=== PATIENT | female | born 1940 | race Caucasian/White ===

== ENCOUNTER 2019-01-16 12:59 | Inpatient (IN) | payer MEDICARE, BC ==
[~2019-01-16] VITALS: Ht 154.9 cm; Wt 53.6 kg
[2019-01-16 13:50] VITALS: BP 127/70
[2019-01-16] MEDS ORDERED: ASPI-983 PO (14:41)
[2019-01-16] MEDS ORDERED: NITR0.4T39 SL (14:41)
[2019-01-16] MEDS ORDERED: ACET-2267 PO (14:41)
[2019-01-16] MEDS ORDERED: LEVO75TA PO (14:41)
[2019-01-16] MEDS ORDERED: ATOR40TA70 PO (14:41)
--- NOTE | 2019-01-16 14:43 | NUR ---
UPDATED MED REC TO THE LIST OF THE MEDICATIONS THAT WAS ORDERED UPON DISCHARGE FROM [facility]. NOTE THE FOLLOWING CHANGES WERE MADE AT THAT TIME. START TAKING: TYLENOL 500MG Q12H X 10 DAYS I WILL UPDATE THE MED REC TO THE LIST OF MEDICATIONS THE PATIENT WAS TAKING PRIOR TO THAT DISCHARGE AT A LATER TIME FOR PROPER DISCHARGE TO HOME ORDERS. Addendum: 01/18/19 at 0827 by LOUIE HERRING [facility] REMOVED THE TYLENOL THAT WAS STARTED AT DISCHARGE FROM [facility] AND LEFT THE 4 MEDICATIONS THAT WERE CONTINUED SO THE MED REC NOW REFLECTS THE MEDS THE PATIENT WAS TAKING AT HOME PRIOR TO HER DISCHARGE TO REHAB.
--- NOTE | 2019-01-16 15:09 | Occupational Therapy Eval ---
OT Evaluation-General/PLF Medical Diagnosis Admission Date Jan 16, 2019 at 13:50 Medical Diagnosis: high anion gap metabolic acisosis Onset Date: Jan 16, 2019 Therapy Diagnosis Therapy Diagnosis: impaired ADLs and mobility Precautions Precautions/Isolations: Fall Prevention, Standard Precautions Weight Bear Status Weight Bearing Restriction: Weight Bearing/Tolerated Location Restriction: TRUONG FEET, LE Bilateral, UE Bilateral Referral Referral Reason: Activity Tolerance, Self Care, Evaluation/Treatment, Strengthening/ROM Medical History Pertinent Medical History: CAD, HTN Additional Medical History CAD, GERD, HLD, HTN, diastolic dysfunction , hypothyroidism Reviewed History: Yes Social History Home: Single Level Current Living Status: Alone Entry Into Home: Stairs With Railing Steps Into Home: 3 Steps Inside Home: 2 Other Obstacles: step down into family room ADL-Prior Level of Function Therapy Code Descriptions/Definitions Functional [place] Measure: 0=Not Assessed/NA 4=Minimal Assistance 1=Total Assistance 5=Supervision or Setup 2=Maximal Assistance 6=Modified [place] 3=Moderate Assistance 7=Complete [place] Therapy Quality Codes: 6 Independent with activity with or without an assistive device 5 Patient requires set up or clean up by helper. Patient completes activity by themselves 4 Supervision or touching assist (CGA). [place] provide cues , steadying assist 3 The helper provides less than half the effort to complete the activity 2 The helper provides more than half the effort to complete the activity 1 Dependent. The helper does all the effort to complete an activity 7 Patient refused to complete or attempt activity 9 The patient did not perform the activity before the current illness or injury 88 Not attempted due to Medical conditions or safety concerns Functional Abilities and Goals: Independent: Patient completed the activities by him/herself, with or without an assistive device, with no assistance from a helper. Needed Some Help: Patient needed partial assistance from another person to complete activities. Dependent: A helper completed the activities for the patient. Unknown: Not Applicable: ADL PLOF Comments pt stated she was independent PLOF and just stated using a FRW. pt stated she has had frequent falls at home and would stay on floor for 2 plus hours until gained strength then would get up. pt uses frozen meals. 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 pt agreed to OT evaluation session and OT/ PT tx session. Co- Treat with PT secondary to complexity of pt requiring skilled services by both disciplines that could not be filled by restorative rehab aide. pt complains of 8/10 pain in R shoulder over AC joint Appearance Noted slight edema in R hand Mental Status/Objective Patient Orientation: Person, Place, Situation Current Glasses/Contacts: No Hearing Aids: Yes Dentures/Partials: No Hand Dominance: Right Upper Extremity ROM truong UE WFL. R shoulder requires increase timing to complete WFL secondary to pain in R AC joint. Truong elbow/ wrist WFL Upper Extremity Coordination truong UE WFL Upper Extremity Sensation WFL Upper Extremity Strength Truong UE 3+/5. ADL-Treatment Eating (FIM): 5 (increase tiing using R UE. noted incrase pain with movement ) Eating (QC): 4 Grooming (FIM): 4 (CGA while stanidng at sink for safety/ balance. noted fair- balance) Oral Hygiene (QC): 4 Bathing (FIM): 0 (pt REFused to complete this task this date secodnary to not having clothing. pt stated she will shower next day. ) Upper Body Dressing (FIM): 2 (pt demo abiltiy to button up shirt. pt requried assist with all other steps secodanry to pain. pt education on dressing affected arm first pt demo coirecctly post education with MIN A ) Upper Body Dressing (QC): 1 Lower Body Dressing (FIM): 1 (required assist with each step. pt ecuation on one handed dressing tech. pt still required assist futher education will be provided. ) Lower Body Dressing (QC): 1 On/Off Footwear (QC): 1 Toileting (FIM): 1 (pt required assist to pull up/ down pants. pt able to perform hygiene ) Toileting Hygiene (QC): 1 Transfers (B, C, W/C) (FIM): 4 (LOB x 2 reured therapist to correct. ) Toilet/Commode Transfer (FIM): 4 Toilet Transfer (QC): 3 pt required MIN A from therapist to perform functional transfers secondary to d ecrease balance. pt demo several (6) LOB during functional mobility required TA from therapist to correct. Other Treatments pt demo ability to ambulate to [place] gym required tactile/ VC from OT while PT focused on mobility. pt required AGUILA .once in gym pt perform bed mobility with skilled cuing from OT for proper hand placement while OT addressed LE movement/ sequencing. pt then ambulated to parallel bars. pt education on proper methods when performing sit to stands and hand placement. OT focused on UE placement and sequencing while PT focus on gross movement and LE placement. pt perform 4 sit to stands. pt then standing in parallel bars OT worked on UE AROM, R shoulder APROM, UE management during ball toss while PT focused on balance// standing. pt transition to JC care. Education OT Patient Education: Energy conservation, Modified ADL techniques, Progress toward Goal/Update tx plan, Purpose of tx/functional activities, Reviewed precautions, Rehab process, Safety issues, Transfer techniques Teaching Recipient: Patient, Family Teaching Methods: Demonstration, Discussion Response to Teaching: Verbalize Understanding, Return Demonstration OT Short Term Goals Short Term Goals Eating(FIM): 6 Grooming(FIM): 5 Bathing(FIM): 5 Bathing Location: L Arm, R Arm, L Upper Leg, R Upper Leg, L Lower Leg (including foot), R Lower Leg (including foot), Chest, Abdomen, Buttocks, Perineal Area Upper Body Dressing(FIM): 5 Lower Body Dressing(FIM): 5 Toileting(FIM): 5 Transfers (B,C,W/C) (FIM): 5 Toilet/Commode Transfer(FIM): 5 Shower Transfer(FIM): 5 1=Demonstrate adherence to instructed precautions during ADL tasks. 2=Patient will verbalize/demonstrate understanding of assistive devices/modifications for ADL. 3=Patient will improve strength/tolerance for activity to enable patient to perform ADL's. OT Penitentiary Goals Penitentiary Goals Eating (FIM): 7 Eating (QC): 6 Groomin Oral Hygiene (QC): 6 Bathing(FIM): 6 Bathing Location: L Arm, R Arm, L Upper Leg, R Upper Leg, L Lower Leg (including foot), R Lower Leg (including foot), Chest, Abdomen, Buttocks, Perineal Area Shower/Bathe Self (QC): 6 Upper Body Dressing(FIM): 6 Upper Body Dressing (QC): 6 Lower Body Dressing(FIM): 6 Lower Body Dressing (QC): 6 On/Off Footwear (QC): 6 Toileting(FIM): 6 Toileting Hygiene (QC): 6 Transfers (B,C,W/C) (FIM): 6 Toilet/Commode Transfer(FIM): 6 Toilet/Commode Transfer (QC): 6 Shower Transfer(FIM): 6 Additional Goals: 1-Demonstrate ADL Tasks, 2-Verbalize Understanding, 3- ImproveStrength/[place] 1=Demonstrate adherence to instructed precautions during ADL tasks. 2=Patient will verbalize/demonstrate understanding of assistive devices/michelle fications for ADL. 3=Patient will improve strength/tolerance for activity to enable patient to perform ADL's. OT Education/Plan Problem List/Assessment Assessment: Decreased Activ Tolerance, Decreased Safety Aware, Decreased UE Strength, Impaired Bed Mobility, Impaired Cognition, Impaired Coordination, Impaired Funct Balance, Impaired I ADL's, Impaired Self-Care Skills, Restricted Funct UE ROM pt present with functional limitations affecting areas of ADLS and functional transfers with deficits in the above mention. pt would benefit from skilled OT services to increase independence with ADL/ functional transfers. Discharge Recommendations Plan/Recommendations: Continue POC Treatment Plan/Plan of Care Treatment,Training & Education: Yes Patient would benefit from OT for education, treatment and training to promote independence in ADL's, mobility, safety and/or upper extremity function for ADL's. Plan of Care: ADL Retraining, Caregiver Training, Concurrent Therapy, Functional Mobility, Group Exercise/Act as Ind, UE Funct Exercise/Act Treatment Duration: Feb 20, 2019 Frequency: At least 5 of 7 days/Wk (IRF) Estimated Hrs Per Day: 1 hour per day (60-90 minutes per day) Agreement: Yes Rehab Potential: Fair Time/GCodes Start Time: 13:38 Stop Time: 14:55 Billed Treatment Time EVM 15 MINUTES [id number] evaluation [id number] ADL 1 units, 10 minutes 1415- 1455 (co-treatment with PT) FA 40 minutes, 3 units DOUGLAS EDWARDS OT Jan 16, 2019 15:09
--- NOTE | 2019-01-16 15:55 | Physical Therapy Daily Note ---
PT Daily Note-Current Subjective Pt sitting in W/C in Therapy Gym working with PT & OT for co-treat upon arrival. Pt agrees to PT/OT co-treat. Pain Numeric Pain Scale: 7 Pain Description: Ache, Tightness Comment: Pt did not report pain, based on facial grimaces. Mental Status Patient Orientation: Person, Place, Time, Situation Transfers Therapy Code Descriptions/Definitions Functional [place] Measure: 0=Not Assessed/NA 4=Minimal Assistance 1=Total Assistance 5=Supervision or Setup 2=Maximal Assistance 6=Modified [place] 3=Moderate Assistance 7=Complete [place] Therapy Quality Codes: 6 Independent with activity with or without an assistive device 5 Patient requires set up or clean up by helper. Patient completes activity by themselves 4 Supervision or touching assist (CGA). [place] provide cues , steadying assist 3 The helper provides less than half the effort to complete the activity 2 The helper provides more than half the effort to complete the activity 1 Dependent. The helper does all the effort to complete an activity 7 Patient refused to complete or attempt activity 9 The patient did not perform the activity before the current illness or injury 88 Not attempted due to Medical conditions or safety concerns Sit to/from Stand: 4 Sit to Stand (QC): 4 SCIENCE PROFESSOR assists with transfer for safety & balance. Weight Bearing Full Weight Bearing Full Weight Bearing Wheelchair Training Does the Pt Use a Wheelchair?: Yes Wheelchair (FIM): 4 Wheelchair Distance: [phone] ft Distance: 75' Wheelchair Level of Assist: 5 Wheel 50 ft with 2 turns (QC): 5 Type of Wheelchair: Manual Pt fatigues and SCIENCE PROFESSOR assists pt with propelling W/C back to room. Treatments PT & OT co-treat to work on balance w/in //bars. Pt also works on sit to stand transfers. Pt then stands at Min A for balance to work on shoulder ROM with assist from PRINT PRODUCTION MANAGER. Pt works on Seated Ex in W/C. Pt then propels W/C for short distance before SCIENCE PROFESSOR assisting rest of distance to room. Pt transfers from W/C to recliner using SPT. Pt positioned with pillows, ice pack on R shoulder & call light in hand. Skills of 2 therapists are required for skilled instruction for pain management with movement of R UE, ADLs, balance with dynamic activities, w/c mobility and ambulation. PT worked on LE strengthening, ambulation, balance and w/c management. OT worked on UE AROM, R shldr APROM, UE management during ambulation and transfers. Assessment Current Status: Good Progress Pt tolerates tx well despite pain. PT Short Term Goals Short Term Goals Transfers (B,C,W/C) (FIM): 5 PT Plan Problem List Problem List: Activity Tolerance, Functional Strength, Safety, Balance, Gait, Transfer Treatment/Plan Treatment Plan: Continue Plan of Care Treatment Plan: Bed Mobility, Concurrent Therapy, Education, Functional Activity [place], Functional Strength, Group Therapy, Gait, Safety, Therapeutic Exercise, Transfers Treatment Duration: Feb 06, 2019 Frequency: At least 5 of 7 days/Wk (IRF) Estimated Hrs Per Day: 1.5 hours per day Patient and/or Family Agrees t: Yes Safety Risks/Education Patient Education: Transfer Techniques, Correct Positioning, W/C Management, Safety Issues Teaching Recipient: Patient Teaching Methods: Discussion Response to Teaching: Verbalize Understanding Time/GCodes Time In: 1450 Time Out: 1540 Total Billed Treatment Time: 50 Total Billed Treatment 1, FA x3 (50m) G Codes Necessary: SILVIA Juan SCIENCE PROFESSOR Jan 16, 2019 15:55
--- NOTE | 2019-01-16 15:57 | Occupational Ther Daily Note ---
OT Current Status-Daily Note Subjective Pt alert, in therapy gym. Took over co-treat with PT from OTR/L. Pt c/o pain in R shlder with movement. Mental Status/Objective Patient Orientation: Person, Place, Time, Situation Therapy Code Descriptions/Definitions Functional [place] Measure: 0=Not Assessed/NA 4=Minimal Assistance 1=Total Assistance 5=Supervision or Setup 2=Maximal Assistance 6=Modified [place] 3=Moderate Assistance 7=Complete [place] ADL-Treatment Therapy Code Descriptions/Definitions Functional [place] Measure: 0=Not Assessed/NA 4=Minimal Assistance 1=Total Assistance 5=Supervision or Setup 2=Maximal Assistance 6=Modified [place] 3=Moderate Assistance 7=Complete [place] Therapy Quality Codes: 6 Independent with activity with or without an assistive device 5 Patient requires set up or clean up by helper. Patient completes activity by themselves 4 Supervision or touching assist (CGA). [place] provide cues , steadying assist 3 The helper provides less than half the effort to complete the activity 2 The helper provides more than half the effort to complete the activity 1 Dependent. The helper does all the effort to complete an activity 7 Patient refused to complete or attempt activity 9 The patient did not perform the activity before the current illness or injury 88 Not attempted due to Medical conditions or safety concerns Other Treatment Skills of 2 therapists are required for skilled instruction for pain management with movement of R UE, ADLs, balance with dynamic activities, w/c mobility and ambulation. PT worked on LE strengthening, ambulation, balance and w/c management. OT worked on UE AROM, R shldr APROM, UE management during ambulation and transfers. Completed resistive clothespins in standing by reaching across body to take off and put on. Finger ladder exercises for APROM of R UE. PROM with decreasing compensatory movements to encourage correct motion to decrease pain. After therapy, pt sitting in recliner with call light/phone in reach. All needs met in room. OT Short Term Goals Short Term Goals Eating(FIM): 6 Grooming(FIM): 5 Bathing(FIM): 5 Bathing Location: L Arm, R Arm, L Upper Leg, R Upper Leg, L Lower Leg (including foot), R Lower Leg (including foot), Chest, Abdomen, Buttocks, Perineal Area Upper Body Dressing(FIM): 5 Lower Body Dressing(FIM): 5 Toileting(FIM): 5 Transfers (B,C,W/C) (FIM): 5 Toilet/Commode Transfer(FIM): 5 Shower Transfer(FIM): 5 1=Demonstrate adherence to instructed precautions during ADL tasks. 2=Patient will verbalize/demonstrate understanding of assistive devices/modifications for ADL. 3=Patient will improve strength/tolerance for activity to enable patient to perform ADL's. OT Dental Surgery Doctor Goals [place] Goals Eating (FIM): 7 Eating (QC): 6 Groomin Oral Hygiene (QC): 6 Bathing(FIM): 6 Bathing Location: L Arm, R Arm, L Upper Leg, R Upper Leg, L Lower Leg (including foot), R Lower Leg (including foot), Chest, Abdomen, Buttocks, Perineal Area Shower/Bathe Self (QC): 6 Upper Body Dressing(FIM): 6 Upper Body Dressing (QC): 6 Lower Body Dressing(FIM): 6 Lower Body Dressing (QC): 6 On/Off Footwear (QC): 6 Toileting(FIM): 6 Toileting Hygiene (QC): 6 Transfers (B,C,W/C) (FIM): 6 Toilet/Commode Transfer(FIM): 6 Toilet/Commode Transfer (QC): 6 Shower Transfer(FIM): 6 Additional Goals: 1-Demonstrate ADL Tasks, 2-Verbalize Understanding, 3- ImproveStrength/[place] 1=Demonstrate adherence to instructed precautions during ADL tasks. 2=Patient will verbalize/demonstrate understanding of assistive devices/modifications for ADL. 3=Patient will improve strength/tolerance for activity to enable patient to perform ADL's. OT Education/Plan Problem List/Assessment Assessment: Decreased Activ Tolerance, Decreased UE Strength, Impaired Funct Balance, Impaired Self-Care Skills, Restricted Funct UE ROM pt present with functional limitations affecting areas of ADLS and functional transfers with deficits in the above mention. pt would benefit from skilled OT services to increase independence with ADL/ functional transfers. Discharge Recommendations Plan/Recommendations: Continue POC Treatment Plan/Plan of Care Patient would benefit from OT for education, treatment and training to promote independence in ADL's, mobility, safety and/or upper extremity function for ADL's. Plan of Care: ADL Retraining, Caregiver Training, Concurrent Therapy, Functional Mobility, Group Exercise/Act as Ind, UE Funct Exercise/Act Treatment Duration: Feb 20, 2019 Frequency: At least 5 of 7 days/Wk (IRF) Estimated Hrs Per Day: 1 hour per day (60-90 minutes per day) Agreement: Yes Rehab Potential: Fair Time/GCodes Start Time: 14:55 Stop Time: 15:40 Total Time Billed (hr/min): 45 Billed Treatment Time 1 visit-EX 3 (45 min) AUDIE HARRELL Jan 16, 2019 15:57
[2019-01-16] MEDS ORDERED: NITROGLYCERIN 0.4 MG SL TABS BTL 25'S SL PRN (16:00)
--- NOTE | 2019-01-16 16:27 | Physical Therapy Evaluation ---
PT Evaluation-General Medical Diagnosis Admission Date Jan 16, 2019 at 13:50 Medical Diagnosis: high anion gap metabolic acisosis Onset Date: Jan 16, 2019 Therapy Diagnosis Therapy Diagnosis: impaired mobility, strength, endurance, balance Precautions Precautions/Isolations: Fall Prevention, Standard Precautions Referral Physician: Jolie Pérez DO Reason for Referral: Evaluation/Treatment Medical History Pertinent Medical History: CAD, GERD, HTN Additional Medical History diastolic dysfunction , hypothyroidism Reviewed History: Yes Social History Home: Single Level Current Living Status: Alone Entry Into Home: Stairs With Railing PT Steps Into Home: 3 PT Steps Inside Home: 2 Other Obstacles: step down into family room Prior/Core FIM Prior Level of Function Therapy Code Descriptions/Definitions Functional Sauk Measure: 0=Not Assessed/NA 4=Minimal Assistance 1=Total Assistance 5=Supervision or Setup 2=Maximal Assistance 6=Modified Sauk 3=Moderate Assistance 7=Complete Sauk Therapy Quality Codes: 6 Independent with activity with or without an assistive device 5 Patient requires set up or clean up by helper. Patient completes activity by themselves 4 Supervision or touching assist (CGA). Woodward provide cues , steadying assist 3 The helper provides less than half the effort to complete the activity 2 The helper provides more than half the effort to complete the activity 1 Dependent. The helper does all the effort to complete an activity 7 Patient refused to complete or attempt activity 9 The patient did not perform the activity before the current illness or injury 88 Not attempted due to Medical conditions or safety concerns Functional Abilities and Goals: Independent: Patient completed the activities by him/herself, with or without an assistive device, with no assistance from a helper. Needed Some Help: Patient needed partial assistance from another person to complete activities. Dependent: A helper completed the activities for the patient. Unknown: Not Applicable: Bed Mobility: 6 Transfers (B,C,W/C) (FIM): 6 Gait: 6 Stairs: 6 Indoor Mobility (Ambulation): Independent Stairs: Independent Prior Devices Use: Walker Patient and her daughter state that a couple of weeks previously she was totally independent. PT Evaluation-Current Subjective Patient in recliner pre tx, agrees to PT, has moderate pain in right shoulder (patient seems unwilling to rate pain). Will be co-treating with OT due to poor patient balance and endurance and the need to coordinate UE and LE activities. Pt/Family Goals to be independent at home Objective Patient Orientation: Person, Confused ROM/Strength ROM Lower Extremities WNL Strenght Lower Extremities right lower extremity (hip flexion 3+/5, knee flexion 4/5, knee extension 4/5, dorsiflexion 4/5), left lower extremity (hip flexion 2/5, knee flexion 3/5, knee extension 3/5, dorsiflexion 3/5) Neuromuscular (Tone, Coordination, Reflexes) NT Sensory Hearing: Functional Hand Dominance: Right Sensation Right Lower Extremit: Impaired Sensation Left Lower Extremity: Impaired Transfers Therapy Code Descriptions/Definitions Functional Sauk Measure: 0=Not Assessed/NA 4=Minimal Assistance 1=Total Assistance 5=Supervision or Setup 2=Maximal Assistance 6=Modified Sauk 3=Moderate Assistance 7=Complete Sauk Therapy Quality Codes: 6 Independent with activity with or without an assistive device 5 Patient requires set up or clean up by helper. Patient completes activity by themselves 4 Supervision or touching assist (CGA). Woodward provide cues , steadying assist 3 The helper provides less than half the effort to complete the activity 2 The helper provides more than half the effort to complete the activity 1 Dependent. The helper does all the effort to complete an activity 7 Patient refused to complete or attempt activity 9 The patient did not perform the activity before the current illness or injury 88 Not attempted due to Medical conditions or safety concerns Transfers (B, C, W/C) (FIM): 4 Scootin Rollin Roll Left to Right (QC): 3 Supine to/from Sit: 4 Sit to/from Stand: 4 Sit to Lying (QC): 3 Lying to Sitting/Side of Bed(Q: 3 Sit to Stand (QC): 3 Chair/Lti-uj-Lajcl Xfer(QC): 3 Car Transfer (QC): 3 Patient needs min assist for bed mobility, supine <-> sit min assist, sit <-> stand min assist, transfers min assist, car transfer min assist. Patient has poor balance and needs close guarding, she loses her balance easily and quickly, needs min assist to correct, cues for hand placement and safety. Gait Does the Patient Walk?: Yes Mode of Locomotion: Walk Anticipated Mode of Locomotion: Walk Gait (FIM): 2 Walk 10 feet (QC): 3 Walk 50 ft with 2 Turns(QC): 3 Walking 10ft/uneven surface-QC: 3 Distance: 100', 50' Gait Level of Assist: 4 Gait Persons Needed: 1 Gait Assistive Device: Cane Single Point Comments/Gait Description Patient can ambulate 100' with a single point cane with min assist (including 50' with at least 2 turns of 90 degrees and 10' over an uneven surface). Meagan zavaleta has poor balance, trips easily and loses balance quickly, needs min assist to maintain balance. Narrow DALE, trips over toes, poor heel strike. Stairs Stairs (FIM): 1 #of Steps: 1 Level of Assist: 4 1 Step (curb) (QC): 3 Assistive Device: Cane Patient can go up and down 1 step using a single point cane with min assist. She needs assist with balance and cues for foot placement and safety. Balance Sitting Static: Good Sitting Dynamic: Good Standing Static: Poor Standing Dynamic: Poor Assessment/Needs Patient has impaired mobility, strength,endurance, and balance. She is a high fall risk. Patient gets very SOB with minimal activity and needs many rest breaks to recover. Rehab Potential: Fair PT Short Term Goals Short Term Goals Time Frame: Jan 23, 2019 Transfers (B,C,W/C) (FIM): 4 (CGA) Gait (FIM): 4 (CGA) Gait Distance Comment: 150' Gait Level of Assist: 4 Gait Assistive Device: FWW Wheelchair Distance: 75' PT Prison Goals Prison Goals PT Prison Goals Time Frame: Feb 06, 2019 Transfers (B,C,W/C) (FIM): 5 Sit to Lying (QC): 4 Lying-Sitting on Side/Bed(QC): 4 Sit to Stand (QC): 4 Rollin Roll Left to Right (QC): 4 Chair/Chh-wm-Mrteq Xfer(QC): 4 Car Transfer (QC): 4 Gait (FIM): 5 Distance: 200' Walk 10 feet (QC): 4 Walk 10ft-Uneven Surface(QC): 4 Walk 50ft with 2 Turns (QC): 4 Walk 150 ft (QC): 4 Gait Level of Assist: 5 Stairs (FIM): 2 # of Steps: 4 1 Step (curb) (QC): 4 4 Steps (QC): 4 Stairs Level Of Assist: 4 PT Plan Problem List Problem List: Activity Tolerance, Functional Strength, Safety, Balance, Gait, Transfer, Bed Mobility Treatment/Plan Treatment Plan: Continue Plan of Care Treatment Plan: Bed Mobility, Concurrent Therapy, Education, Functional Activity Arabella, Functional Strength, Group Therapy, Gait, Safety, Therapeutic Exercise, Transfers Treatment Duration: Feb 06, 2019 Frequency: At least 5 of 7 days/Wk (IRF) Estimated Hrs Per Day: 1.5 hours per day Patient and/or Family Agrees t: Yes Safety Risks/Education Patient Education: Gait Training, Transfer Techniques, Steps, Correct Posit ioning, Safety Issues Teaching Recipient: Patient Teaching Methods: Demonstration, Discussion Response to Teaching: Reinforcement Needed Discharge Recommendations Plan Patient will perform bed mobility and transfer training, balance and endurance training, functional strengthening, stair training, gait training, and education, to improve functional mobility and independence at home. Therapy D/C Recommendations: Home w/ Family Support, Snf (TCU/NH) Time/GCodes Time In: 1405 Time Out: 1450 Total Billed Treatment 1 visit EVM 10' GT 15' FA 20' OT eval from [id number]. PT eval from [id number]. Co-treat with OT from 1415- 1450. Then ACCOUNTANT ASSISTANT takes over after that to continue to co-treat with OT. SKIP BABIN PT Jan 16, 2019 16:27
--- NOTE | 2019-01-16 16:40 | PM&R H&P / Post Admit Assess ---
History of Present Illness HPI/Chief Complaint Chief complaint: Severe right upper extremity pain with torso pain s/p fall. 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 She was in a great deal of pain, was noted to have anion gap acidosis due to new significant dehydration and fasting with ketosis but she was provided supportive care and PT but due to the debilitating severe pain she was in need of inpatient rehab for a short stay to work through the pain maintained on Tylenol and Baclofen, and to be monitored closely due to increased fall risk due to the pain issues. 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 Source: patient, family, RN/MD, old records Exam Limitations: no limitations Date Seen 01/16/19 Time Seen by a Provider: 13:40 Attending Physician Jolie Pérez Maria F MD Referring Physician Date of Admission Jan 16, 2019 at 13:50 Home Medications & Allergies Home Medications Reviewed patient Home Medication Reconciliation performed by pharmacy medication reconciliations technical maintenance technician and/or nursing. Patients Allergies have been reviewed. 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) Alcohol Use: Denies Use Smoking Status: Never a Smoker Recent Foreign Travel: No Contact w/other who traveled: No Recent Infectious Disease Expo: No Past Medical History Cardiac: Coronary Artery Disease, High Cholesterol, Hypertension Diastolic CHF Genitourinary: Bladder Infection Gastrointestinal: Gastroesophageal Reflux Musculoskeletal: Arthritis Endocrine: Hypothyroidsim Cancer: Malignant neuroendocrine tumor with mets to lymph nodes Review of Systems Constitutional: see HPI EENTM: no symptoms reported Respiratory: no symptoms reported Cardiovascular: no symptoms reported Gastrointestinal: no symptoms reported Genitourinary: no symptoms reported Musculoskeletal: back pain, muscle pain, muscle stiffness, neck pain Skin: no symptoms reported Psychiatric/Neurological: No Symptoms Reported All Other Systems Reviewed Negative Unless Noted: Yes Physical Exam Exam Vital Signs Vital Signs Date Time Temp Pulse Resp B/P (MAP) Pulse Ox O2 Delivery O2 Flow Rate FiO2 01/16/19 17:53 98.0 67 18 132/71 (91) 96 Room Air Capillary Refill : General Appearance: No Apparent Distress, WD/WN, Chronically ill HEENT: PERRL/EOMI, Normal ENT Inspection, Pharynx Normal, Moist Mucous Membranes Neck: Full Range of Motion, Normal Inspection, Non Tender, Supple Respiratory: Chest Non Tender, Lungs Clear, Normal Breath Sounds, No Accessory Muscle Use, No Respiratory Distress Cardiovascular: Regular Rate, Rhythm, No Edema, No Gallop, No JVD, No Murmur Gastrointestinal: Normal Bowel Sounds, No Organomegaly, No Pulsatile Mass, Non Tender, Soft Back: Normal Inspection, No CVA Tenderness, No Vertebral Tenderness, Decreased Range of Motion, Muscle Spasm Extremity: Normal Capillary Refill, Normal Inspection, Normal Range of Motion (right arm limited ROM due to pain), Non Tender, No Calf Tenderness, No Pedal Edema Neurologic/Psychiatric: Alert, Oriented x3, No Motor/Sensory Deficits, Normal Mood/Affect Skin: Normal Color, Warm/Dry Lymphatic: No Adenopathy Results Results/Procedures Labs Patient resulted labs reviewed. Assessment/Plan Assessment and Plan Assess & Plan/Chief Complaint Assessment: Fall with severe right arm and torso pain Debility CAD HTN HLP GERD Neuroendocrine tumor Plan: Pain control PT/OT Monitor closely Check labs in am (1) CAD (coronary artery disease) (2) GERD (gastroesophageal reflux disease) (3) Hypothyroidism (4) Hypertension (5) Hyperlipemia (6) Diastolic CHF (7) Neuro-endocrine carcinoma (8) Debility Post Admission Physician Asses Date seen by provider: Jan 16, 2019 Time seen by provider: 13:40 Admisison Dx: (1) Debility The preadmission screen agrees with the post admission assessment that the patient is a good candidate for inpatient rehabilitation. The patient will have a comprehensive program of inpatient rehabilitation with a goal of maximizing level of functional independence prior to discharge home with family. The patient will have PT/OT ninety minutes per day, each discipline, five days a week for gait, strengthening, conditioning, balance, ADLs, any patient/family/caregiver training as necessary. Speech therapy to do cognitive assessment and treat as indicated. Rehabilitation nursing to assist with bowel, bladder, skin, wound care, medication administration, pain management. Spiral Tube Winder Helper to assist with discharge planning, community reentry. SCD's for DVT prophylaxis. She appears to be well motivated to participate in three hours of therapy a day. She should be able to tolerate three hours of therapy a day from a medical standpoint. She should benefit from the three hours of therapy a day. She has a reasonable discharge plan, reasonable discharge rehabilitation goals and a supportive family. She has various comorbidities that need to be closely monitored with medications and treatments adjusted on a daily basis as needed. These include: see list Barriers to discharge for this patient who had been independent prior to this are for her to be modified independent to supervision for ADLs and mobility skills prior to discharge home with family, so as to lessen the burden of the caregivers. Risks for this patient include: 1. Fall 2. Fracture 3. DVT 4. Pulmonary embolism 5. Wound infection 6. Skin breakdown 7. Contractures 8. Poorly controlled pain 9. Urinary retention 10. UTI 11. Respiratory infection 12. Aspiration Estimated Length of Stay: 7 days Prognosis: Rehab prognosis appears good for goal of discharge home with family modified independent to supervision for ADLs and mobility skills. JOLIE PÉREZ DO Jan 16, 2019 16:39
[2019-01-16] MEDS ORDERED: CALCIUM CARBONATE 500 MG (TUMS) TAB.CHEW PO PRN (16:45)
[2019-01-16] MEDS ORDERED: LOPERAMIDE 2 MG (IMODIUM) TABLET PO PRN (16:45)
[2019-01-16] MEDS ORDERED: ONDANSETRON 4 MG (ZOFRAN) ORAL DISSOLVE TAB PO PRN (16:45)
[2019-01-16] MEDS ORDERED: ACETAMINOPHEN 500 MG TAB (TYLENOL) PO PRN (16:45)
[2019-01-16] MEDS ORDERED: BISACODYL 10 MG SUPP (DULCOLAX) PR PRN (16:45)
[2019-01-16] MEDS ORDERED: SENNA W/DOCUSATE (SENOKOT S) TABLET PO PRN (16:45)
[2019-01-16] MEDS ORDERED: DOCUSATE SODIUM 100 MG (COLACE) CAP PO PRN (16:45)
[2019-01-16] MEDS ORDERED: ALPRAZolam 0.25 MG (XANAX) TAB PO PRN (16:45)
[2019-01-16] MEDS ORDERED: diphenhydrAMINE 25 MG TAB (BENADRYL) PO PRN (16:45)
--- NOTE | 2019-01-16 16:45 | ST Cognitive Linguistic Eval ---
Speech Evaluation-General Medical Diagnosis high anion gap metabolic acisosis Onset Date: Jan 16, 2019 Therapy Diagnosis Therapy Diagnosis: Cognitive-communication Precautions Precautions/Isolations: Fall Prevention, Standard Precautions Referral Referring Physician: Dr. Pérez Medical History Pertinent Medical History: CAD, HTN Reviewed History: Yes Social History Current Living Status: Alone Speech PLF-Current Status Prior Level of Function The patient lived home alone where she was independent with most of her daily needs. She has family support for some of her needs. Subjective The patient was pleasant and cooperative with the cognitive evaluation. Language Eval: Auditory Comprehends Simple Yes/No Ques: Functional Indent/Objects Multiple Logan: Functional Ident/Pics in Multiple Logan: Functional Follows 1-Step Commands: Functional Follows Complex Directions: Mild Follows General Conversations: Mild Language Eval: Verbal Language Completes Spontaneous Greeting: Functional Produces Auto, Serial Info: Mild Imitates Simple Words/Phrases: Functional Word Finding: Mild Requests Basic Needs: Functional States Basic Personal Info: Functional Expresses Complex Ideas: Moderate Objective Cognitive Domain Attention: Mild Memory: Moderate Problem Solving: Moderate Executive Functions: Moderate Visuospatial Skills: Mild Composite Severity Rating: Moderate Clock Drawing Severity Rating: Moderate Objective Formal/Standardized Tests [facility] Mental Status ([facility]) Results The patient scored an 18/30 which places her in the dementia stage. She has moderate deficits for memory and problem solving which impacts her safety and independence. Oral Motor/Speech Production Within Functional Limits Impression The patient is a pleasant 78 year old female who was admitted to the ARU for strengthening and medical monitoring. The patient recently suffered a fall which resulted in great pain. She was hospitalized at the time of her fall. She completed the SLUMS at bedside with results of 18/30 placing her in the dementia range. The patient is noted to have moderate deficits in memory and problem solving which decreases her safety and independence significantly. The patient will receive skilled ST services for these areas of deficit with focus on improving safety and independence. Communication/Social Cognition Comprehension: 4 Expression: 4 Social Interaction: 5 Problem Solvin Memory: 3 Speech Patient Assess Expression of Ideas/Wants: Frequently (2) Understanding Verbal Content: Sometimes Understands(2) Repetition of Three Words: Three (3) Temporal Orientation: Year: Missed by 2-5 years (1) Temporal Orientation: Month: Missed by 6 days-1 month (1) Temporal Orientation: Day: Correct (1) Recall : Wear to say "Sock": Yes,after cueing (1) Recall : Color: No, could not recall (0) Recall : Bed: No, could not recall (0) Memory/Recall Ability: That he or she is in a hsp/hsp unit Speech Short Term Goals Short Term Goals Short Term Goals 1) The patient will complete memory tasks with 80% or greater with minimal verbal cues. 2) The patient will complete problem solving tasks with 80% or greater with minimal verbal cues. 3) The patient will demonstrate following multi-step directions with 80% or greater with minimal verbal cues. Speech Rn Plasma Center Goals Rn Plasma Center Goals The patient will improve safety and independence in order to function safely in her environment. Speech-Plan Patient/Family Goals Patient/Family Goals: The patient plans on returning home, however this is most likely not to be appropriate due to decreased level of function. Treatment Plan Speech Therapy Treatment Plan: Continue Plan of Care The patient will receive skilled ST services for decreased level of function. Treatment Duration: Jan 25, 2019 Frequency: 5 times per week Estimated Hrs Per Day: .5 hour per day Rehab Potential: Fair Barriers to Learning: Patient's decreased level of cognitive function. Safety Risks/Education Safety Risk Comments: Patient exhibits decreased safety awareness. Teaching Recipient: Patient Teaching Methods: Discussion Response to Teaching: Verbalize Understanding, Unable to Return Demonstration Education Topics Provided: Safety within her room and utilization of the call light. Time Speech Therapy Time In: 16:30 Speech Therapy Time Out: 16:45 Total Billed Time: 15 Billed Treatment Time 1, SPSNDELLI Paulson Jan 16, 2019 16:45
[2019-01-16 17:53] VITALS: BP 132/71
[2019-01-16] MEDS: ATORVASTATIN 40 MG (LIPITOR) TABLET PO SCH (21:35)
[2019-01-16] MEDS: ACETAMINOPHEN 500 MG TAB (TYLENOL) PO SCH (21:36)
[2019-01-17 04:32] LABS: BASOPHILS % (AUTO) 0 % (0-10); EOSINOPHILS # (AUTO) 0.1 10^3/uL (0.0-0.3); EOSINOPHILS % (AUTO) 1 % (0-10); HEMATOCRIT 32 % (35-52); HEMOGLOBIN 10.2 G/DL (11.5-16.0); LYMPHOCYTES # (AUTO) 1.6 X 10^3 (1.0-4.0); LYMPHOCYTES % (AUTO) 35 % (12-44); MEAN CORPUSCULAR HEMOGLOBIN 28 PG (25-34); MEAN CORPUSCULAR HGB CONC 32 G/DL (32-36); MEAN CORPUSCULAR VOLUME 85 FL (80-99); MEAN PLATELET VOLUME 9.4 FL (7.4-10.4); MONOCYTES # (AUTO) 0.5 X 10^3 (0.0-1.0); MONOCYTES % (AUTO) 10 % (0-12); NEUTROPHILS # (AUTO) 2.6 X 10^3 (1.8-7.8); NEUTROPHILS % (AUTO) 54 % (42-75); PLATELET COUNT 283 10^3/uL (130-400); RED CELL DISTRIBUTION WIDTH 14.4 % (10.0-14.5); WHITE BLOOD COUNT 4.8 10^3/uL (4.3-11.0)
[2019-01-17 04:52] LABS: ALANINE AMINOTRANSFERASE 51 U/L (0-55); ALKALINE PHOSPHATASE 135 U/L (40-136); BILIRUBIN,TOTAL 0.3 MG/DL (0.1-1.0); BUN/CREATININE RATIO 14; CALCIUM 8.6 MG/DL (8.5-10.1); CARBON DIOXIDE 25 MMOL/L (21-32); CHLORIDE 106 MMOL/L (98-107); CREATININE SERUM 0.59 MG/DL (0.60-1.30); GFR ESTIMATED > 60; GLUCOSE 92 MG/DL (70-105); POTASSIUM 3.1 MMOL/L (3.6-5.0); SODIUM 140 MMOL/L (135-145)
[2019-01-17 05:33] VITALS: BP 143/72
[2019-01-17] MEDS: LEVOTHYROXINE 75 MCG (LEVOTHROID) TABLET PO SCH (06:12)
[2019-01-17] MEDS: ACETAMINOPHEN 500 MG TAB (TYLENOL) PO SCH ×2 (08:03→20:12)
[2019-01-17] MEDS: ASPIRIN E.C. 81 MG (ECOTRIN) TAB PO SCH (08:03)
--- NOTE | 2019-01-17 09:02 | PM&R Progress Note ---
Subjective HPI/CC On Admission Date Seen by Provider: Jan 17, 2019 Time Seen by Provider: 08:45 Chief complaint: Severe right upper extremity pain with torso pain s/p fall. HPI: This is a [id number] clinic Pt of Dr. Shelby Jerome who presented to the inpatient rehab unit after transfer from [facility] in [place] after sustaining a fall at home and sustaining sever right upper extremity and right torso lower back pain with out any evidence of fracture on imaging scans. She was in a great deal of pain, was noted to have anion gap acidosis due to new significant dehydration and fasting with ketosis but she was provided supportive care and PT but due to the debilitating severe pain she was in need of inpatient rehab for a short stay to work through the pain maintained on Tylenol and Baclofen, and to be monitored closely due to increased fall risk due to the pain issues. 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 Subjective/Events-last exam Slum score of 18 confirming memory loss with dementia dx I did speak to her about the memory loss and she does report that people have mentioned it in the past Having hallucinations so will consult behavioral health Baclofen Q 8 hrs will be restarted along with Tylenol PT will initiate heat pack therapy to help the right arm Likely the cognitive decline has caused the res of unable to cope and work through this pain Bowels moving per pt but will fully confirm with nursing staff Conferred with RN Reviewed therapy notes Review of Systems Musculoskeletal: arm pain Neurological: Weakness, Incoordination, Confusion Objective Exam Vital Signs Vital Signs Date Time Temp Pulse Resp B/P (MAP) Pulse Ox O2 Delivery O2 Flow Rate FiO2 01/17/19 18:21 98.2 66 18 128/68 (88) 97 Room Air Capillary Refill : General Appearance: No Apparent Distress, WD/WN, Chronically ill HEENT: PERRL/EOMI, Normal ENT Inspection, Pharynx Normal, Moist Mucous Membranes Neck: Full Range of Motion, Normal Inspection, Non Tender, Supple Respiratory: Chest Non Tender, Lungs Clear, Normal Breath Sounds, No Accessory Muscle Use, No Respiratory Distress Cardiovascular: Regular Rate, Rhythm, No Edema, No Gallop, No JVD, No Murmur Gastrointestinal: Normal Bowel Sounds, No Organomegaly, No Pulsatile Mass, Non Tender, Soft Back: Normal Inspection, No CVA Tenderness, No Vertebral Tenderness, Decreased Range of Motion, Muscle Spasm Extremity: Normal Capillary Refill, Normal Inspection, Normal Range of Motion (right arm limited ROM due to pain), Non Tender, No Calf Tenderness, No Pedal Edema Neurologic/Psychiatric: Alert, Oriented x3, No Motor/Sensory Deficits, Normal Mood/Affect, geomagnetician II-XII Norm as Tested, Disoriented Skin: Normal Color, Warm/Dry Lymphatic: No Adenopathy Results/Procedures Lab Laboratory Tests 01/17/19 03:55 01/17/19 04:00 Patient resulted labs reviewed. FIM Transfers Therapy Code Descriptions/Definitions Functional [place] Measure: 0=Not Assessed/NA 4=Minimal Assistance 1=Total Assistance 5=Supervision or Setup 2=Maximal Assistance 6=Modified [place] 3=Moderate Assistance 7=Complete [place] Therapy Quality Codes: 6 Independent with activity with or without an assistive device 5 Patient requires set up or clean up by helper. Patient completes activity by themselves 4 Supervision or touching assist (CGA). [place] provide cues , steadying assist 3 The helper provides less than half the effort to complete the activity 2 The helper provides more than half the effort to complete the activity 1 Dependent. The helper does all the effort to complete an activity 7 Patient refused to complete or attempt activity 9 The patient did not perform the activity before the current illness or injury 88 Not attempted due to Medical conditions or safety concerns Transfers (B, C, W/C) (FIM): 4 Scootin Rollin Roll Left to Right (QC): 3 Supine to/from Sit: 4 Sit to/from Stand: 4 Sit to Lying (QC): 3 Sit to Stand (QC): 3 Chair/Dym-wy-Jibjs Xfer(QC): 3 Car Transfer (QC): 3 Gait Training Does the Patient Walk?: Yes Gait (FIM): 2 Walk 10 feet (QC): 3 Walk 50 ft with 2 Turns(QC): 3 Walking 10ft/uneven surface-QC: 3 Gait Level of Assist: 4 Gait Persons Needed: 1 Gait Assistive Device: Cane Single Point Wheelchair Training Does the Pt Use a Wheelchair?: Yes Wheelchair (FIM): 4 Wheelchair Distance: 8=735-72 ft Distance: 75' Wheelchair Level of Assist: 5 Wheel 50 ft with 2 turns (QC): 5 Type of Wheelchair: Manual Stair Training Stairs (FIM): 1 #of Steps: 1 1 Step (curb) (QC): 3 Level of Assist: 4 ADL-Treatment Feedin (increase tiing using R UE. noted incrase pain with movement ) Eating (QC): 4 Groomin (CGA while stanidng at sink for safety/ balance. noted fair- balance) Oral Hygiene (QC): 4 Bathin (pt REFused to complete this task this date secodnary to not having clothing. pt stated she will shower next day. ) Upper Extremity Dressin (pt demo abiltiy to button up shirt. pt requried assist with all other steps secodanry to pain. pt education on dressing affected arm first pt demo coirecctly post education with MIN A ) Upper Body Dressing (QC): 1 Lower Extremity Dressin (required assist with each step. pt ecuation on one handed dressing tech. pt still required assist futher education will be provided. ) Lower Body Dressing (QC): 1 On/Off Footwear (QC): 1 Toiletin (pt required assist to pull up/ down pants. pt able to perform hygiene ) Toileting Hygiene (QC): 1 Toilet/Commode Transfer: 4 Toilet Transfer (QC): 3 Assessment/Plan Assessment and Plan Assess & Plan/Chief Complaint Assessment: Fall with severe right arm and torso pain Debility CAD HTN HLP GERD Neuroendocrine tumor Dementia Plan: Pain control PT/OT Monitor closely Start treatment of dementia (1) Debility (2) CAD (coronary artery disease) (3) Hyperlipemia (4) Hypothyroidism (5) GERD (gastroesophageal reflux disease) (6) Hypertension (7) Neuro-endocrine carcinoma (8) Diastolic CHF (9) Dementia JESSICA SALAZAR DO Jan 17, 2019 09:02
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
--- NOTE | 2019-01-17 11:05 | Physical Therapy Daily Note ---
PT Daily Note-Current Subjective Pt laying Supine in bed upon arrival. Pt agrees to PT. Pain Numeric Pain Scale: 5-Moderate Pain Location: Right Location Body Site: Shoulder Pain Description: Ache, Tightness Mental Status Patient Orientation: Person, Place Transfers Therapy Code Descriptions/Definitions Functional [place] Measure: 0=Not Assessed/NA 4=Minimal Assistance 1=Total Assistance 5=Supervision or Setup 2=Maximal Assistance 6=Modified [place] 3=Moderate Assistance 7=Complete [place] Therapy Quality Codes: 6 Independent with activity with or without an assistive device 5 Patient requires set up or clean up by helper. Patient completes activity by themselves 4 Supervision or touching assist (CGA). [place] provide cues , steadying assist 3 The helper provides less than half the effort to complete the activity 2 The helper provides more than half the effort to complete the activity 1 Dependent. The helper does all the effort to complete an activity 7 Patient refused to complete or attempt activity 9 The patient did not perform the activity before the current illness or injury 88 Not attempted due to Medical conditions or safety concerns Scootin Rollin Supine to/from Sit: 5 Sit to/from Stand: 4 Sit to Stand (QC): 4 Weight Bearing Full Weight Bearing Full Weight Bearing Gait Training Does the Patient Walk?: Yes Gait (FIM): 4 Distance (FIM): 3=150 ft Distance: 150' x2 Walk 10 feet (QC): 4 Walk 50 ft with 2 Turns(QC): 4 Walk 150 ft (QC): 4 Gait Level of Assist: 4 Gait Persons Needed: 1 Gait Assistive Device: FWW Pt walks with NBOS so she demonstrates LOB. SCHEDULING ASSISTANT encouraged pt to widen DALE when walking w/FWW. Pt fatigues easily and needs RB. Wheelchair Training Does the Pt Use a Wheelchair?: No Exercises Seated Therapy Exercises: Ankle pumps, Long arc quads, Hip flexion, Kicking activity Seated Reps: 20 NuStep Minutes: 10 NuStep Workload: 3 (No UE were used due to shoulder pain) Treatments Pt transfers from bed to standing. Pt uses restroom then ambulates in hallway using FWW at CGA-Min A. Pt completes Seated EX in chair before using NuStep for 10m at WL 3. Pt returns to room at end of tx to rest in recliner. Pt has all needs met. Assessment Current Status: Good Progress Pt reports R shoulder pain during tx. Pt limits some movement. PT Short Term Goals Short Term Goals Time Frame: Jan 23, 2019 Transfers (B,C,W/C) (FIM): 4 (CGA) Gait (FIM): 4 (CGA) Gait Distance Comment: 150' Gait Level of Assist: 4 Gait Assistive Device: FWW Wheelchair Distance: 75' PT Mate Fourth Goals Intermediate Goals PT Mate Fourth Goals Time Frame: Feb 06, 2019 Transfers (B,C,W/C) (FIM): 5 Sit to Lying (QC): 4 Lying-Sitting on Side/Bed(QC): 4 Sit to Stand (QC): 4 Rollin Roll Left to Right (QC): 4 Chair/Nmw-hc-Hrppg Xfer(QC): 4 Car Transfer (QC): 4 Gait (FIM): 5 Distance: 200' Walk 10 feet (QC): 4 Walk 10ft-Uneven Surface(QC): 4 Walk 50ft with 2 Turns (QC): 4 Walk 150 ft (QC): 4 Gait Level of Assist: 5 Stairs (FIM): 2 # of Steps: 4 1 Step (curb) (QC): 4 4 Steps (QC): 4 Stairs Level Of Assist: 4 PT Plan Problem List Problem List: Activity Tolerance, Functional Strength, Safety, Balance, Gait, Transfer Treatment/Plan Treatment Plan: Continue Plan of Care Treatment Plan: Bed Mobility, Concurrent Therapy, Education, Functional Activity Arabella, Functional Strength, Group Therapy, Gait, Safety, Therapeutic Exercise, Transfers Treatment Duration: Feb 06, 2019 Frequency: At least 5 of 7 days/Wk (IRF) Estimated Hrs Per Day: 1.5 hours per day Patient and/or Family Agrees t: Yes Safety Risks/Education Patient Education: Gait Training, Transfer Techniques, Correct Positioning, Safety Issues Teaching Recipient: Patient Teaching Methods: Discussion Response to Teaching: Verbalize Understanding Time/GCodes Time In: 800 Time Out: 900 Total Billed Treatment Time: 60 Total Billed Treatment 1, GT (20m), EX x2 (30m) & FA (10m) G Codes Necessary: SILVIA Juan SCHEDULING ASSISTANT Jan 17, 2019 11:05
--- NOTE | 2019-01-17 11:23 | NUR ---
COFFEE ROASTER HELPER met with patient and daughtermathew to complete initial assessment. Patient was alert and oriented 3 with confusion and forgetfulness. Patient admitted to ARU from [facility] with generalized debility. Patient and family report patient has had frequent falls within the last 2 weeks. Prior to hospitalization patient resided alone in a one level home in [place], [place]. The home has 3 steps at the entrance with railing. Prior to 2 weeks ago patient was independent with tasks and utilized no DME. She continued to drive and required no assistance; however, daughter will check on her frequently. Patient does possess a front-wheeled walker and cane, if needed at discharge. PCP identified as Dr. Shelby Jerome. Primary contact identified as daughter jordy at [phone] of [place] and sonBrian of [place] at [phone]. Patient spouse resides in a local detention, which she visits frequently. Insurance verified as Medicare and [facility] with prescription coverage and preferred pharmacy [facility]. COFFEE ROASTER HELPER reviewed typical ARU length of stay and weekly team conferences, neither patient or spouse expressed concerns at this time. COFFEE ROASTER HELPER received notification from Dr. Pérez of consult for behavioral health and request of slums evaluation due to cognitive status. COFFEE ROASTER HELPER will continue to follow.
[2019-01-17] MEDS: DICLOFENAC 1% GEL 100 GM (VOLTAREN) TUBE TOP SCH ×3 (14:53→20:15)
[2019-01-17] MEDS: BACLOFEN 10 MG (LIORESAL) TAB PO SCH ×2 (14:53→21:54)
--- NOTE | 2019-01-17 15:20 | Physical Therapy Daily Note ---
PT Daily Note-Current Subjective Pt in restroom upon arrival. Pt agrees to PT although does not remember staff from this morning. Mental Status Patient Orientation: Person, Confused Pt reports having social awareness although this is not demonstrated. Pt cannot remember seeing staff for morning Therapy as well as safety items including DALE. Transfers Therapy Code Descriptions/Definitions Functional [place] Measure: 0=Not Assessed/NA 4=Minimal Assistance 1=Total Assistance 5=Supervision or Setup 2=Maximal Assistance 6=Modified [place] 3=Moderate Assistance 7=Complete [place] Therapy Quality Codes: 6 Independent with activity with or without an assistive device 5 Patient requires set up or clean up by helper. Patient completes activity by themselves 4 Supervision or touching assist (CGA). [place] provide cues , steadying assist 3 The helper provides less than half the effort to complete the activity 2 The helper provides more than half the effort to complete the activity 1 Dependent. The helper does all the effort to complete an activity 7 Patient refused to complete or attempt activity 9 The patient did not perform the activity before the current illness or injury 88 Not attempted due to Medical conditions or safety concerns Scootin Sit to/from Stand: 5 Sit to Stand (QC): 5 Weight Bearing Full Weight Bearing Full Weight Bearing Gait Training Does the Patient Walk?: Yes Gait (FIM): 4 Distance (FIM): 3=150 ft Distance: 250' Walk 10 feet (QC): 4 Walk 50 ft with 2 Turns(QC): 4 Walk 150 ft (QC): 4 Gait Level of Assist: 4 Gait Persons Needed: 1 Gait Assistive Device: FWW TRAFFIC SAFETY ADMINISTRATOR instructs pt on NBOS. Pt reports that this DALE is "awkward" but TRAFFIC SAFETY ADMINISTRATOR instructs on safety especially with balance. Treatments After finishing in restroom, pt ambulates in hallway. Pt returns to room to rest at end of tx. Pt reports recliner is uncomfortable and wants to return to bed. Pt has all needs met, including call light. Assessment Pt continues to demonstrate lack of social awareness with safety. Pt continues to struggle with lack of balance. PT Short Term Goals Short Term Goals Time Frame: Jan 23, 2019 Transfers (B,C,W/C) (FIM): 4 (CGA) Gait (FIM): 4 (CGA) Gait Distance Comment: 150' Gait Level of Assist: 4 Gait Assistive Device: FWW Wheelchair Distance: 75' PT Jail Goals Jail Goals PT Turn Sewer Goals Time Frame: Feb 06, 2019 Transfers (B,C,W/C) (FIM): 5 Sit to Lying (QC): 4 Lying-Sitting on Side/Bed(QC): 4 Sit to Stand (QC): 4 Rollin Roll Left to Right (QC): 4 Chair/Mtn-hd-Dskgn Xfer(QC): 4 Car Transfer (QC): 4 Gait (FIM): 5 Distance: 200' Walk 10 feet (QC): 4 Walk 10ft-Uneven Surface(QC): 4 Walk 50ft with 2 Turns (QC): 4 Walk 150 ft (QC): 4 Gait Level of Assist: 5 Stairs (FIM): 2 # of Steps: 4 1 Step (curb) (QC): 4 4 Steps (QC): 4 Stairs Level Of Assist: 4 PT Plan Problem List Problem List: Activity Tolerance, Functional Strength, Safety, Balance, Gait, Transfer Treatment/Plan Treatment Plan: Continue Plan of Care Treatment Plan: Bed Mobility, Concurrent Therapy, Education, Functional Activity Arabella, Functional Strength, Group Therapy, Gait, Safety, Therapeutic Exercise, Transfers Treatment Duration: Feb 06, 2019 Frequency: At least 5 of 7 days/Wk (IRF) Estimated Hrs Per Day: 1.5 hours per day Patient and/or Family Agrees t: Yes Safety Risks/Education Patient Education: Gait Training, Transfer Techniques, Correct Positioning, Safety Issues Teaching Recipient: Patient Teaching Methods: Discussion Response to Teaching: Reinforcement Needed Time/GCodes Time In: 1415 Time Out: 1430 Total Billed Treatment Time: 15 Total Billed Treatment 1, GT (15m) G Codes Necessary: SILVIA Juan TRAFFIC SAFETY ADMINISTRATOR Jan 17, 2019 15:20
--- NOTE | 2019-01-17 16:00 | NUR ---
DR. SALAZAR NOTIFIED OF HYPOKALEMIA AND STARTED ON POTASSIUM SUPPLEMENT. ORIENTED TO NAME AND PLACE ONLY. DENIES PAIN. STATES PAIN WITH MOVEMENT ONLY.
--- NOTE | 2019-01-17 16:20 | Speech Therapy Daily Note ---
Speech Daily Progress Note Subjective Date Seen by Provider: Jan 17, 2019 Time Seen by Provider: 00:30 The patient was resting in her bed when I entered her room. Objective The patient completed simple following directions at 60% with moderate repetitions and verbal cuing. Assessment Assessment Current Status: Fair Progress Treatment Plan Continue Plan of Care Communication Comprehension: 4 Expression: 4 Social Cognition Social Interaction: 5 Problem Solvin Memory: 3 Speech Short Term Goals Short Term Goals Short Term Goals 1) The patient will complete memory tasks with 80% or greater with minimal verbal cues. 2) The patient will complete problem solving tasks with 80% or greater with mi nimal verbal cues. 3) The patient will demonstrate following multi-step directions with 80% or greater with minimal verbal cues. Speech Wood Cabinet Finisher Goals Half-Way Goals The patient will improve safety and independence in order to function safely in her environment. Speech-Plan Patient/Family Goals Patient/Family Goals: The patient plans on returning home, however this is unlikely to be appropriate for her. Treatment Plan Speech Therapy Treatment Plan: Continue Plan of Care The patient has significant cognitive deficits. Treatment Duration: Jan 25, 2019 Frequency: 5 times per week Estimated Hrs Per Day: .5 hour per day Rehab Potential: Fair Barriers to Learning: Cognitive deficits, decreased retention of new information. Pt/Family Agrees to Plan: Yes Safety Risks/Education Teaching Recipient: Patient Teaching Methods: Discussion Response to Teaching: Verbalize Understanding Education Topics Provided: Continued safety and procedures within her room. Time Speech Therapy Time In: 13:00 Speech Therapy Time Out: 13:15 Total Billed Time: 30 Billed Treatment Time 1[address] Jan 17, 2019 16:20
[2019-01-17] MEDS: KCL 10 MEQ TAB (MICRO K) PO SCH (17:02)
[2019-01-17 18:21] VITALS: BP 128/68
[2019-01-17] MEDS: DONEPEZIL 5 MG (ARICEPT) TAB PO SCH (20:12)
[2019-01-17] MEDS: SENNA W/DOCUSATE (SENOKOT S) TABLET PO SCH (20:12)
[2019-01-17] MEDS: ATORVASTATIN 40 MG (LIPITOR) TABLET PO SCH (20:12)
[2019-01-17] MEDS: LACTULOSE SYRUP 10GM/15ML (ENULOSE) 30ML UDC PO SCH (20:16)
--- NOTE | 2019-01-17 21:26 | Individualized Plan of Care ---
Individualized Plan of Care Rehab Nursing IPOC Order Admission Date Jan 16, 2019 at 13:50 Current Orders Orders Admission Order(Inpt,Obs,Sdc) (01/16/19 13:32) Vital Signs: Per Unit Policy ( 08,16,00 (01/16/19 13:32) Sustainability Engineer-Inpt Rehab Con (01/16/19 13:32) Rehab Nursing Orders-Ipoc (01/16/19 13:32) Physical Therapy Rehab Orders (01/16/19 13:32) Occupational Therapy Rehab Ord (01/16/19 13:32) Speech Therapy Rehab Orders (01/16/19 13:32) Precautions (Aru) (01/16/19 13:32) Weekly Weight (Lbs) WEEK (01/16/19 13:32) Rehab-Intensity Of Therapy (01/16/19 13:32) Initiate Admission Nursing Pro .admission (01/16/19 13:32) Transfer - Bed/Room/Location (01/16/19 14:11) Request Ot Evaluate & Treat (01/16/19 15:17) Aspirin Enteric Coated Tablet (Ecotrin T (01/17/19 09:00) Atorvastatin Tablet (Lipitor) (01/16/19 21:00) Levothyroxine Tablet (Synthroid Tablet) (01/17/19 06:30) Nitroglycerin 0.4 Mg Btl 25's (Nitrostat (01/16/19 16:00) Acetaminophen Tablet (Tylenol Tablet) (01/16/19 21:00) Patient Visit (01/16/19 ) Functional Activities, Ea 15 (01/16/19 ) Cbc With Automated Diff (01/17/19 06:00) Comprehensive Metabolic Panel (01/17/19 06:00) Acetaminophen Tablet (Tylenol Tablet) (01/16/19 16:45) Alprazolam Tablet (Xanax Tablet) (01/16/19 16:45) Calcium Carbonate Chew Tablet (Antacid C (01/16/19 16:45) Diphenhydramine Tablet (Benadryl Tablet) (01/16/19 16:45) Docusate Sodium Capsule (Colace Capsule) (01/16/19 16:45) Bisacodyl Suppository (Dulcolax Supposit (01/16/19 16:45) Loperamide Capsule (Imodium Capsule) (01/16/19 16:45) Melatonin Tablet (Melatonin Tablet) (01/16/19 16:45) Ondansetron Oral Dissolve Tab (Zofran (01/16/19 16:45) Senna S Tablet (Senokot S Tablet) (01/16/19 16:45) Patient Visit (01/16/19 ) Speech Sound Lang Comp (01/16/19 ) Ambulate , (01/16/19 17:13) Sequential Compression Device (01/16/19 17:13) Dvt/Vte Risk - Notifiy Physici 08 (01/16/19 17:13) Code/Resuscitation (01/16/19 18:21) Heart Healthy (01/16/19 Dinner) Diclofenac 1% Gel (Voltaren 1% Gel) (01/17/19 13:00) Donepezil Tablet (Aricept Tablet) (01/17/19 21:00) Patient Visit (01/16/19 ) Pt Eval Moderate Complexity (01/16/19 ) Functional Activities, Ea 15 (01/16/19 ) Gait Training, Ea 15 Min (01/16/19 ) Behavorial Health Consult (01/17/19 09:06) Senna S Tablet (Senokot S Tablet) (01/17/19 21:00) Lactulose Oral Solution (Enulose Oral So (01/17/19 21:00) Baclofen Tablet (Lioresal Tablet) (01/17/19 14:00) Potassium Chloride (Tablet) (Klor Con Ta (01/17/19 16:15) Patient Visit (01/17/19 ) Treat. Speech/Lang/Voice (01/17/19 ) Rehab Nursing Orders: Ongoing Assess. of Cognitive Status, Ongoing Assess. of Function Status, Bladder Management, Bowel Management, Bowel Training, Disease Management & Educaiton, DVT Prophylaxis, Fall Prevention, Fluid/Electrolyte/Nut rition Mgmt, Medication Management & Education, Management of Risks & Complications, Nutrition Management, Pain Management, Patient/Family Support, Safety Management Intensity of Therapy to be met Patient to be seen: Min.3h per day/5 of 7d PT IPOC Problem List: Activity Tolerance, Functional Strength, Safety, Balance, Gait, Transfer Treatment Plan: Continue Plan of Care Bed Mobility, Concurrent Therapy, Education, Functional Activity Arabella, Functional Strength, Group Therapy, Gait, Safety, Therapeutic Exercise, Transfers Treatment Duration: Feb 06, 2019 Frequency: At least 5 of 7 days/Wk (IRF) Estimated Hrs Per Day: 1.5 hours per day OT IPOC Problems: Decreased Activ Tolerance, Decreased Safety Aware, Decreased UE Strength, Impaired Cognition, Impaired Funct Balance, Impaired I ADL's, Impaired Self-Care Skills, Restricted Funct UE ROM OT Treatment, Training and Edu: Yes OT Problems pt present with functional limitations affecting areas of ADLS and functional transfers with deficits in the above mention. pt would benefit from skilled OT services to increase independence with ADL/ functional transfers. Plan of Care: ADL Retraining, Caregiver Training, Concurrent Therapy, Functional Mobility, Group Exercise/Act as Ind, UE Funct Exercise/Act Treatment Duration: Feb 20, 2019 Frequency: At least 5 of 7 days/Wk (IRF) Estimated Hrs Per Day: 1 hour per day (60-90 minutes per day) ST IPOC Speech Therapy Treatment Plan: Continue Plan of Care Treatment Duration: Jan 25, 2019 Frequency: 5 times per week Estimated Hrs Per Day: .5 hour per day Sustainability Engineer/Case Mgmt Sustainability Engineer/Case Managemen: Discharge Planning Dietitian/Community Health Worker Dietitian/Community Health Worker to monitor nutritional status and make changes and/or recommendations as needed and work with speech pathology on dietary upgrades as the occur. Neuropsychology/Psychology Family states that she has been having hallucinations of her brothers and other family members and kids running around. Physician IPOC Medical Issues being managed closely and that require the 24 hour availability of a physician: New diagnosis of dementia requiring new med addition and pain issues requiring close monitoring Brief Synthesis of Preadmission Screen, Post-Admission Evaluation, and Therapy Evaluations: PT will focus on heat therapy for pain resolution OT will focus on ADL independence with right arm pain ST will improve cognition Medical Prognosis: Good Anticipated Length of Stay: 7 days JESSICA SALAZAR DO Jan 17, 2019 21:26
[2019-01-18] MEDS: LEVOTHYROXINE 75 MCG (LEVOTHROID) TABLET PO SCH (05:48)
[2019-01-18] MEDS: KCL 10 MEQ TAB (MICRO K) PO SCH (05:48)
[2019-01-18] MEDS: BACLOFEN 10 MG (LIORESAL) TAB PO SCH ×3 (05:48→20:58)
[2019-01-18 06:07] VITALS: BP 131/68
[2019-01-18] MEDS: SENNA W/DOCUSATE (SENOKOT S) TABLET PO SCH ×2 (08:36→21:11)
[2019-01-18] MEDS: ASPIRIN E.C. 81 MG (ECOTRIN) TAB PO SCH (08:36)
[2019-01-18] MEDS: LACTULOSE SYRUP 10GM/15ML (ENULOSE) 30ML UDC PO SCH ×2 (08:36→21:11)
[2019-01-18] MEDS: ACETAMINOPHEN 500 MG TAB (TYLENOL) PO SCH ×2 (08:36→20:58)
[2019-01-18] MEDS: DICLOFENAC 1% GEL 100 GM (VOLTAREN) TUBE TOP SCH ×4 (08:37→20:59)
--- NOTE | 2019-01-18 09:05 | Physical Therapy Daily Note ---
PT Daily Note-Current Subjective Pt laying Supine in bed. Pt agrees to PT. Pain Location: No Pain Reported Mental Status Patient Orientation: Person, Confused, Place Transfers Therapy Code Descriptions/Definitions Functional [place] Measure: 0=Not Assessed/NA 4=Minimal Assistance 1=Total Assistance 5=Supervision or Setup 2=Maximal Assistance 6=Modified [place] 3=Moderate Assistance 7=Complete [place] Therapy Quality Codes: 6 Independent with activity with or without an assistive device 5 Patient requires set up or clean up by helper. Patient completes activity by themselves 4 Supervision or touching assist (CGA). [place] provide cues , steadying assist 3 The helper provides less than half the effort to complete the activity 2 The helper provides more than half the effort to complete the activity 1 Dependent. The helper does all the effort to complete an activity 7 Patient refused to complete or attempt activity 9 The patient did not perform the activity before the current illness or injury 88 Not attempted due to Medical conditions or safety concerns Scootin Rollin Supine to/from Sit: 5 Sit to/from Stand: 4 Sit to Stand (QC): 4 Weight Bearing Full Weight Bearing Full Weight Bearing Gait Training Does the Patient Walk?: Yes Gait (FIM): 4 Distance (FIM): 3=150 ft Distance: 150' x2 Walk 10 feet (QC): 4 Walk 50 ft with 2 Turns(QC): 4 Walk 150 ft (QC): 4 Gait Level of Assist: 4 Gait Persons Needed: 1 Gait Assistive Device: FWW PORCELAIN ENAMELER continues to encourages pt to widen her DALE but remains CGA for safety. Pt drifts to R side and reports dizziness with change of position. Exercises Supine Ex: Ankle pumps, Quad Set, Glut sets, Heel Slides, Straight leg raise, Hip abd/add Supine Reps: 15 NuStep Minutes: 15 NuStep Workload: 4 Treatments Pt transfers to standing then ambulates in hallway using FWW. Pt takes RB and reports dizziness. BP taken and WNL. Pt completes Supine Ex followed by using NuStep for 15m at WL 4. Pt returns to room to rest in recliner at end of tx, call light in hand. Assessment Current Status: Good Progress Pt reports dizziness with change of position. PORCELAIN ENAMELER took BP and was 121/73 with O2 at 97%. Nurse was notified. PT Short Term Goals Short Term Goals Time Frame: Jan 23, 2019 Transfers (B,C,W/C) (FIM): 4 (CGA) Gait (FIM): 4 (CGA) Gait Distance Comment: 150' Gait Level of Assist: 4 Gait Assistive Device: FWW Wheelchair Distance: 75' PT Assisted Goals Assisted Goals PT Assisted Goals Time Frame: Feb 06, 2019 Transfers (B,C,W/C) (FIM): 5 Sit to Lying (QC): 4 Lying-Sitting on Side/Bed(QC): 4 Sit to Stand (QC): 4 Rollin Roll Left to Right (QC): 4 Chair/Gzb-re-Yshzh Xfer(QC): 4 Car Transfer (QC): 4 Gait (FIM): 5 Distance: 200' Walk 10 feet (QC): 4 Walk 10ft-Uneven Surface(QC): 4 Walk 50ft with 2 Turns (QC): 4 Walk 150 ft (QC): 4 Gait Level of Assist: 5 Stairs (FIM): 2 # of Steps: 4 1 Step (curb) (QC): 4 4 Steps (QC): 4 Stairs Level Of Assist: 4 PT Plan Problem List Problem List: Activity Tolerance, Functional Strength, Safety, Balance, Gait Treatment/Plan Treatment Plan: Continue Plan of Care Treatment Plan: Bed Mobility, Concurrent Therapy, Education, Functional Activity Arabella, Functional Strength, Group Therapy, Gait, Safety, Therapeutic Exercise, Transfers Treatment Duration: Feb 06, 2019 Frequency: At least 5 of 7 days/Wk (IRF) Estimated Hrs Per Day: 1.5 hours per day Patient and/or Family Agrees t: Yes Safety Risks/Education Patient Education: Gait Training, Transfer Techniques, Correct Positioning, Safety Issues Teaching Recipient: Patient Teaching Methods: Discussion Response to Teaching: Verbalize Understanding, Reinforcement Needed Time/GCodes Time In: 800 Time Out: 845 Total Billed Treatment Time: 45 Total Billed Treatment 1, GT (15m) & EX x2 (30m) G Codes Necessary: SILVIA Juan PTA Jan 18, 2019 09:05
--- NOTE | 2019-01-18 10:16 | Occupational Ther Daily Note ---
OT Current Status-Daily Note Subjective pt agreed to OT TX session with focus on increase ROM/ strength in RUE, and increasing independence with ADLs. pt complains of 3/10 pain in right biceps. Mental Status/Objective Therapy Code Descriptions/Definitions Functional [place] Measure: 0=Not Assessed/NA 4=Minimal Assistance 1=Total Assistance 5=Supervision or Setup 2=Maximal Assistance 6=Modified [place] 3=Moderate Assistance 7=Complete [place] ADL-Treatment Therapy Code Descriptions/Definitions Functional [place] Measure: 0=Not Assessed/NA 4=Minimal Assistance 1=Total Assistance 5=Supervision or Setup 2=Maximal Assistance 6=Modified [place] 3=Moderate Assistance 7=Complete [place] Therapy Quality Codes: 6 Independent with activity with or without an assistive device 5 Patient requires set up or clean up by helper. Patient completes activity by themselves 4 Supervision or touching assist (CGA). [place] provide cues , steadying assist 3 The helper provides less than half the effort to complete the activity 2 The helper provides more than half the effort to complete the activity 1 Dependent. The helper does all the effort to complete an activity 7 Patient refused to complete or attempt activity 9 The patient did not perform the activity before the current illness or injury 88 Not attempted due to Medical conditions or safety concerns Grooming (FIM): 5 (SBA for safety/ balance. pt ecducation on proper placement of RW. pt demo correctly ) Toileting (FIM): 5 (SBA for safet/ balance. pt ecducation on proper placement of RW. pt demo correctly ) Toileting Hygiene (QC): 4 Transfers (B, C, W/C) (FIM): 5 (SBA for safet/ balance. ) Toilet/Commode Transfer (FIM): 5 (SBA for safet/ balance. pt ecducation on proper placement of RW. pt demo correctly ) Toilet Transfer (QC): 4 Other Treatment pt demo ability to ambulate to TX gym approx 100 ft with SBA for safety/ balance using RW. pt perform UBE 10 minutes forward with no resistance. pt reports no pain with this activity. pt then perform ROM rings from R<>L X2 performing shoulder flexion to approx 90 degrees. pt required increase rest breaks between sets secondary to activity tolerance. p reports no pain with this task. pt then given peg dimino to match colors and to increase FMC/ grasp. pt demo ability to match colors 90% of time. noted increase timing required secondary to decrease FMC/ increase tremors. pt them ambulated back to room 100ft SBA and sat in chair. chair alarm on. all needs met, call light within reach. Education OT Patient Education: Modified ADL techniques, Progress toward Goal/Update tx plan, Purpose of tx/functional activities, Reviewed precautions, Rehab process Teaching Recipient: Patient Teaching Methods: Demonstration, Discussion Response to Teaching: Verbalize Understanding, Return Demonstration OT Short Term Goals Short Term Goals Eating(FIM): 6 Grooming(FIM): 5 Bathing(FIM): 5 Bathing Location: L Arm, R Arm, L Upper Leg, R Upper Leg, L Lower Leg (including foot), R Lower Leg (including foot), Chest, Abdomen, Buttocks, Perineal Area Upper Body Dressing(FIM): 5 Lower Body Dressing(FIM): 5 Toileting(FIM): 5 Transfers (B,C,W/C) (FIM): 4 (CGA) Toilet/Commode Transfer(FIM): 5 Shower Transfer(FIM): 5 1=Demonstrate adherence to instructed precautions during ADL tasks. 2=Patient will verbalize/demonstrate understanding of assistive devices/modifications for ADL. 3=Patient will improve strength/tolerance for activity to enable patient to perform ADL's. OT Traffic Checker Goals Traffic Checker Goals Eating (FIM): 7 Eating (QC): 6 Groomin Oral Hygiene (QC): 6 Bathing(FIM): 6 Bathing Location: L Arm, R Arm, L Upper Leg, R Upper Leg, L Lower Leg (including foot), R Lower Leg (including foot), Chest, Abdomen, Buttocks, Perineal Area Shower/Bathe Self (QC): 6 Upper Body Dressing(FIM): 6 Upper Body Dressing (QC): 6 Lower Body Dressing(FIM): 6 Lower Body Dressing (QC): 6 On/Off Footwear (QC): 6 Toileting(FIM): 6 Toileting Hygiene (QC): 6 Transfers (B,C,W/C) (FIM): 6 Toilet/Commode Transfer(FIM): 6 Toilet/Commode Transfer (QC): 6 Shower Transfer(FIM): 6 Additional Goals: 1-Demonstrate ADL Tasks, 2-Verbalize Understanding, 3- ImproveStrength/Arabella 1=Demonstrate adherence to instructed precautions during ADL tasks. 2=Patient will verbalize/demonstrate understanding of assistive devices/modifications for ADL. 3=Patient will improve strength/tolerance for activity to enable patient to perform ADL's. OT Education/Plan Problem List/Assessment Assessment: Decreased Activ Tolerance, Decreased Safety Aware, Decreased UE Strength, Impaired Cognition, Impaired Coordination, Impaired Funct Balance, Impaired I ADL's, Impaired Self-Care Skills, Restricted Funct UE ROM pt present with functional limitations affecting areas of ADLS and functional transfers with deficits in the above mention. pt would benefit from skilled OT services to increase independence with ADL/ functional transfers. Discharge Recommendations Plan/Recommendations: Continue POC Barriers to Progress cognition Treatment Plan/Plan of Care Treatment,Training & Education: Yes Patient would benefit from OT for education, treatment and training to promote independence in ADL's, mobility, safety and/or upper extremity function for ADL's. Plan of Care: ADL Retraining, Caregiver Training, Concurrent Therapy, Functional Mobility, Group Exercise/Act as Ind, UE Funct Exercise/Act Treatment Duration: Feb 20, 2019 Frequency: At least 5 of 7 days/Wk (IRF) Estimated Hrs Per Day: 1 hour per day (60-90 minutes per day) Agreement: Yes Rehab Potential: Fair Time/GCodes Start Time: 09:15 Stop Time: 10:15 Billed Treatment Time ADL 10 minutes, 1 unit FA 50 minutes, 3 units DOUGLAS EDWARDS OT Jan 18, 2019 10:16
--- NOTE | 2019-01-18 11:20 | Behavioral Health Consult ---
Consult- Consult Date Seen by Provider: Jan 17, 2019 Time Seen by Provider: 13:10 [facility] PSYCHOLOGICAL CONSULTATION PATIENT: Chela Alvarez DATE: 1940 DATES OF EVALUATION: 01/17/19 (13:10-14:00) DATE OF REPORT: 01/18/19 REFERRAL QUESTION: Chela Alvarez is a 78 year-old female who was admitted to the hospital due to complications from a fall. Dr. Pérez asked for a psychological consultation for cognitive issues. TEST ADMINISTERED: Clinical Interview with Patient PRESENTING PROBLEMS: Chela Alvarez reports she has been living independently and doing well until recent falls have sent her to the hospital. She was confused and had difficulty tracking conversations at times. She acknowledged that she has been confused since coming into the hospital but did not think she was like this prior to being admitted. The nurse informed this automatic typewriter inspector that [place] daughter reports that this has been going on for about a year. Chela seemed to track the conversation really well at times but also got confused and displayed word-finding difficulties throughout the evaluation. She did respond to subtle humor and had a bright affect at times. She states that she can walk now but knows that she has to contact staff if she wants to get up and move around. She states that she does not need to go to a rest home like where her is and states that she will be fine at home. CURRENT/PREVIOUS MENTAL HEALTH TREATMENT: Chela denied any history of mental health treatment or diagnoses. MEDICAL HISTORY: See medical chart for detailed history. She reports taking Lipitor and a medication for her back. Dr. Pérez started her on Aricept on 01/17/19 for memory issues. 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 She states that he moved her out to [place] and [place]. She states that she wishes she were out there where it was warm. She denied working after high school citing that she got . FAMILY AND SOCIAL HISTORIES/SOCIAL SUPPORT: Chela reports living by herself in [place], [place]. She states that her youngest daughter lives close by and is a great help to her. She states that everybody should have a daughter like her. She states that her current Bhanu lives in a rest home just two blocks away. She states that she drives down to see him often. She states that he is 90 years old. She states that she him a few years after her first . She states that Vicente, her first , in 1997 although she was unsure of the year for sure. She thought this year was 1999, so 1997 did not make sense to her. Chela reports having four children with him, one of whom is . She states that she has 6 grandsons and 3 granddaughters. She states that she spends most of her time watching television and enjoys watching Westerns and the news. BEHAVIORAL OBSERVATIONS/MENTAL STATUS: The patient was seen in her hospital room as she was lying in bed covered up with a blanket as she complained of being cold as the therapist entered. She was pleasant throughout and answered each of the therapists questions. She had a bright affect at times as she laughed and understood this writers humor. She tended to get confused as she got worked up or anxious while talking or trying to remember something. She was sad during portions as well. She expressed confidence that she could walk and would be able to go home. She states that her sleep is good at home. She had difficulty with time frames, years, dates, and even with where she was. She was able to correctly name the current president but could not remember the name of his predecessor. SUMMARY: Mrs. Chela Alvarez is currently at the hospital due to complications from a fall. She demonstrated cognitive issues when meeting with this automatic typewriter inspector as she got easily confused and had difficulty retrieving some information. She displayed word-finding difficulties as well. She seemed to get anxious at points during the conversation which seemed to increase her cognitive difficulties. At this point, she may benefit from a medication to help keep her calmer and see if and how that improves her cognitive functioning. 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 Copy Copies To 1: JESSICA PÉREZ JEFFREY M PSYD Jan 18, 2019 11:20
--- NOTE | 2019-01-18 11:21 | PM&R Progress Note ---
Subjective HPI/CC On Admission Date Seen by Provider: Jan 18, 2019 Time Seen by Provider: 09:30 Chief complaint: Severe right upper extremity pain with torso pain s/p fall. 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 She was in a great deal of pain, was noted to have anion gap acidosis due to new significant dehydration and fasting with ketosis but she was provided supportive care and PT but due to the debilitating severe pain she was in need of inpatient rehab for a short stay to work through the pain maintained on Tylenol and Baclofen, and to be monitored closely due to increased fall risk due to the pain issues. 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 Subjective/Events-last exam Slum score of 18 confirming memory loss with dementia dx and psych consult was completed due to hallucinations and anxiety meds were recommended but will monitor for the need of that as IRF course progresses I did speak to her about the memory loss and she does report that people have mentioned it in the past and I told her I started her on the Aricept and she seems appreciative Baclofen Q 8 hrs was restarted along with Tylenol PT will initiate heat pack therapy to help the right arm and she states she is still hurting Likely the cognitive decline has caused the res of unable to cope and work through this pain Bowels moving and confirmed with RN Conferred with RN Reviewed therapy notes Review of Systems Musculoskeletal: arm pain Objective Exam Vital Signs Vital Signs Date Time Temp Pulse Resp B/P (MAP) Pulse Ox O2 Delivery O2 Flow Rate FiO2 01/18/19 09:00 Room Air 01/18/19 06:07 97.9 54 16 131/68 (89) 97 Capillary Refill : General Appearance: No Apparent Distress, WD/WN, Chronically ill HEENT: PERRL/EOMI, Normal ENT Inspection, Pharynx Normal, Moist Mucous Membranes Neck: Full Range of Motion, Normal Inspection, Non Tender, Supple Respiratory: Chest Non Tender, Lungs Clear, Normal Breath Sounds, No Accessory Muscle Use, No Respiratory Distress Cardiovascular: Regular Rate, Rhythm, No Edema, No Gallop, No JVD, No Murmur Gastrointestinal: Normal Bowel Sounds, No Organomegaly, No Pulsatile Mass, Non Tender, Soft Back: Normal Inspection, No CVA Tenderness, No Vertebral Tenderness, Decreased Range of Motion, Muscle Spasm Extremity: Normal Capillary Refill, Normal Inspection, Normal Range of Motion (right arm limited ROM due to pain), Non Tender, No Calf Tenderness, No Pedal Edema Neurologic/Psychiatric: Alert, Oriented x3, No Motor/Sensory Deficits, Normal Mood/Affect, dishtank operator II-XII Norm as Tested, Disoriented Skin: Normal Color, Warm/Dry Lymphatic: No Adenopathy Results/Procedures Lab Patient resulted labs reviewed. FIM Transfers Therapy Code Descriptions/Definitions Functional [place] Measure: 0=Not Assessed/NA 4=Minimal Assistance 1=Total Assistance 5=Supervision or Setup 2=Maximal Assistance 6=Modified [place] 3=Moderate Assistance 7=Complete [place] Therapy Quality Codes: 6 Independent with activity with or without an assistive device 5 Patient requires set up or clean up by helper. Patient completes activity by themselves 4 Supervision or touching assist (CGA). [place] provide cues , steadying assist 3 The helper provides less than half the effort to complete the activity 2 The helper provides more than half the effort to complete the activity 1 Dependent. The helper does all the effort to complete an activity 7 Patient refused to complete or attempt activity 9 The patient did not perform the activity before the current illness or injury 88 Not attempted due to Medical conditions or safety concerns Transfers (B, C, W/C) (FIM): 5 (SBA for safet/ balance. ) Scootin Rollin Roll Left to Right (QC): 3 Supine to/from Sit: 5 Sit to/from Stand: 4 Sit to Lying (QC): 3 Sit to Stand (QC): 4 Chair/Kkz-da-Ikmbb Xfer(QC): 3 Car Transfer (QC): 3 Gait Training Does the Patient Walk?: Yes Gait (FIM): 4 Distance (FIM): 3=150 ft Distance: 150' x2 Walk 10 feet (QC): 4 Walk 50 ft with 2 Turns(QC): 4 Walk 150 ft (QC): 4 Walking 10ft/uneven surface-QC: 3 Gait Level of Assist: 4 Gait Persons Needed: 1 Gait Assistive Device: FWW Wheelchair Training Does the Pt Use a Wheelchair?: No Wheelchair (FIM): 4 Wheelchair Distance: 0=355-55 ft Distance: 75' Wheelchair Level of Assist: 5 Wheel 50 ft with 2 turns (QC): 5 Type of Wheelchair: Manual Stair Training Stairs (FIM): 1 #of Steps: 1 1 Step (curb) (QC): 3 Level of Assist: 4 Mental Status/Objective Comprehension: 4 Expression: 4 Social Interaction: 5 Problem Solvin Memory: 3 ADL-Treatment Feedin (increase timing to open items ) Eating (QC): 6 Groomin (SBA for safety/ balance. pt ecducation on proper placement of RW. pt demo correctly ) Oral Hygiene (QC): 4 Bathin (intermitted CGA for safety/ balance ) Bathing Location: L Arm, R Arm, L Upper Leg, R Upper Leg, L Lower Leg (including foot), R Lower Leg (including foot), Chest, Abdomen, Buttocks, Perineal Area Shower/Bathe Self (QC): 4 Upper Extremity Dressin (post skilled cuing pt demo ability to daryl button up shirt ) Upper Body Dressing (QC): 4 Lower Extremity Dressin (CGA while standing for safety/ balance. pt education on sitting to thread charlene LE for energy conservation. pt demo correctly. ) Lower Body Dressing (QC): 4 On/Off Footwear (QC): 4 Toiletin (SBA for safet/ balance. pt ecducation on proper placement of RW. pt demo correctly ) Toileting Hygiene (QC): 4 Toilet/Commode Transfer: 5 (SBA for safet/ balance. pt ecducation on proper placement of RW. pt demo correctly ) Toilet Transfer (QC): 4 Shower: 4 (use of RW, gait belt. CGA for safety/ balance) Assessment/Plan Assessment and Plan Assess & Plan/Chief Complaint Assessment: Fall with severe right arm and torso pain Debility CAD HTN HLP GERD Neuroendocrine tumor Dementia Plan: Pain control PT/OT Monitor closely Start treatment of dementia with Aricept Appreciate psych evaluation (1) Debility (2) CAD (coronary artery disease) (3) Hyperlipemia (4) Hypothyroidism (5) GERD (gastroesophageal reflux disease) (6) Hypertension (7) Neuro-endocrine carcinoma (8) Diastolic CHF (9) Dementia JESSICA SALAZAR DO Jan 18, 2019 11:21
--- NOTE | 2019-01-18 14:43 | Therapy Group Daily Note ---
Therapy Daily Group Note Patient Education Topic Other List Below (Bed Mobility & Transfers) Session Ratio (pt:therapist): 4:1 Goal of Session: Education on ARU Expectations, Energy Conservation Tech., Home Safety Strategies, Memory Strategies, Safety with Transfers, Use of Adaptive Equipment Goal Met for this Session: Yes Pt Benefit of Group: Contributions to Others, F/U Use of Strategies @Home, Increased Functional Safety, Increased Functional Strength, Improved Cognition, Recognition of Peers, Socialization Other/Notes Pt ambulates to PT/OT Group using FWW. Group consists Introduction (Name, Where you are from & an Event that stuck out in your life), Socialization, Explanation of ARU Expectations as well as Instruction of proper Bed Mobility and Transfers & Sit to Stand Transfers using FWW. Pt actively participated in Group by actively listening to others and answering questions when asked. Pt returns to room at end of tx to rest with all needs met, call light in hand. Start Time: 13:00 Stop Time: 14:10 Total Billed Treatment Time: 70 Total Billed Treatment 1, SILVIA FENG [employer]EN[employer]AL SUPPLY TECH Jan 18, 2019 14:43
--- NOTE | 2019-01-18 15:03 | Speech Therapy Daily Note ---
Speech Daily Progress Note Subjective Date Seen by Provider: Jan 18, 2019 Time Seen by Provider: 00:30 The patient was resting in her chair with the alarm on when I entered her room. Objective The patient completed simple following directions tasks with 60% accuracy given mod to max verbal cues. Assessment Assessment Current Status: Fair Progress Treatment Plan Continue Plan of Care Communication Comprehension: 4 Expression: 4 Social Cognition Social Interaction: 5 Problem Solvin Memory: 3 Speech Short Term Goals Short Term Goals Short Term Goals 1) The patient will complete memory tasks with 80% or greater with minimal verbal cues. 2) The patient will complete problem solving tasks with 80% or greater with minimal verbal cues. 3) The patient will demonstrate following multi-step directions with 80% or greater with minimal verbal cues. Speech Jail Goals Processing Operator Goals The patient will improve safety and independence in order to function safely in her environment. Speech-Plan Patient/Family Goals Patient/Family Goals: The patient plans on returning home, however this is most likely not going to be appropriate due to safety. Treatment Plan Speech Therapy Treatment Plan: Continue Plan of Care The patient was pleasant but confused. Treatment Duration: Jan 25, 2019 Frequency: 5 times per week Estimated Hrs Per Day: .5 hour per day Rehab Potential: Fair Barriers to Learning: The patient has moderate dementia. Pt/Family Agrees to Plan: Yes Safety Risks/Education Teaching Recipient: Patient Teaching Methods: Discussion Response to Teaching: Verbalize Understanding Education Topics Provided: Safety within her room and review of using the call light. Time Speech Therapy Time In: 10:30 Speech Therapy Time Out: 11:00 Total Billed Time: 30 Billed Treatment Time [address] Jan 18, 2019 15:03
[2019-01-18 17:55] VITALS: BP 144/74
[2019-01-18] MEDS: ATORVASTATIN 40 MG (LIPITOR) TABLET PO SCH (20:58)
[2019-01-18] MEDS: DONEPEZIL 5 MG (ARICEPT) TAB PO SCH (20:58)
[2019-01-19] MEDS: KCL 10 MEQ TAB (MICRO K) PO SCH (05:52)
[2019-01-19] MEDS: LEVOTHYROXINE 75 MCG (LEVOTHROID) TABLET PO SCH (05:52)
[2019-01-19] MEDS: BACLOFEN 10 MG (LIORESAL) TAB PO SCH ×3 (05:52→20:56)
[2019-01-19 06:26] VITALS: BP 130/70
[2019-01-19] MEDS: ACETAMINOPHEN 500 MG TAB (TYLENOL) PO SCH ×2 (09:12→20:56)
[2019-01-19] MEDS: ASPIRIN E.C. 81 MG (ECOTRIN) TAB PO SCH (09:12)
[2019-01-19] MEDS: LACTULOSE SYRUP 10GM/15ML (ENULOSE) 30ML UDC PO SCH ×2 (09:12→19:31)
[2019-01-19] MEDS: SENNA W/DOCUSATE (SENOKOT S) TABLET PO SCH ×2 (09:13→19:32)
[2019-01-19] MEDS: DICLOFENAC 1% GEL 100 GM (VOLTAREN) TUBE TOP SCH ×4 (09:14→20:56)
--- NOTE | 2019-01-19 10:00 | NUR ---
ORDER OBTAINED FOR DAY PASS TOMORROW. DAUGHTER HAD CALLED THIS AM AND IS ARRANGING TO TAKE PATIENT TO SEE HER AT LONG TERM. DR. SALAZAR STATES ADDITIONAL DVT PROPHYLAXIS NEEDED - ON BABY ASA AND IS AMBULATING WELL. PATIENT STATES RIGHT SHOULDER PAIN IS MUCH BETTER.
--- NOTE | 2019-01-19 10:06 | PM&R Progress Note ---
Subjective HPI/CC On Admission Date Seen by Provider: Jan 19, 2019 Time Seen by Provider: 10:00 Chief complaint: Severe right upper extremity pain with torso pain s/p fall. 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 She was in a great deal of pain, was noted to have anion gap acidosis due to new significant dehydration and fasting with ketosis but she was provided supportive care and PT but due to the debilitating severe pain she was in need of inpatient rehab for a short stay to work through the pain maintained on Tylenol and Baclofen, and to be monitored closely due to increased fall risk due to the pain issues. 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 Subjective/Events-last exam Slum score of 18 confirming memory loss with dementia dx and psych consult was completed due to hallucinations and anxiety meds were recommended but will monitor for the need of that as IRF course progresses I did speak to her about the memory loss and she does report that people have mentioned it in the past and I told her I started her on the Aricept and she seems appreciative Baclofen Q 8 hrs was restarted along with Tylenol and that regimen seems to be helping her PT will initiate heat pack therapy to help the right arm and she states she is still hurting and it is out of proportion of the signs on physical exam so unsure if this is her dementia and a behavior or based on true pain Likely the cognitive decline has caused the rest of unable to cope and work through this pain Daughter wants to bring her to [place] where her is for a daypass tomorrow Bowels moving and confirmed with RN Conferred with RN Reviewed therapy notes Review of Systems General: Fatigue Musculoskeletal: arm pain, back pain Objective Exam Vital Signs Vital Signs Date Time Temp Pulse Resp B/P (MAP) Pulse Ox O2 Delivery O2 Flow Rate FiO2 01/19/19 17:03 Room Air 01/19/19 16:17 97.2 63 12 94/54 (67) 97 Capillary Refill : General Appearance: No Apparent Distress, WD/WN, Chronically ill HEENT: PERRL/EOMI, Normal ENT Inspection, Pharynx Normal, Moist Mucous Membranes Neck: Full Range of Motion, Normal Inspection, Non Tender, Supple Respiratory: Chest Non Tender, Lungs Clear, Normal Breath Sounds, No Accessory Muscle Use, No Respiratory Distress Cardiovascular: Regular Rate, Rhythm, No Edema, No Gallop, No JVD, No Murmur Gastrointestinal: Normal Bowel Sounds, No Organomegaly, No Pulsatile Mass, Non Tender, Soft Back: Normal Inspection, No CVA Tenderness, No Vertebral Tenderness, Decreased Range of Motion, Muscle Spasm Extremity: Normal Capillary Refill, Normal Inspection, Normal Range of Motion (right arm limited ROM due to pain), Non Tender, No Calf Tenderness, No Pedal Edema Neurologic/Psychiatric: Alert, Oriented x3, No Motor/Sensory Deficits, Normal Mood/Affect, fresh meat grader II-XII Norm as Tested, Disoriented Skin: Normal Color, Warm/Dry Lymphatic: No Adenopathy Results/Procedures Lab Patient resulted labs reviewed. FIM Transfers Therapy Code Descriptions/Definitions Functional [place] Measure: 0=Not Assessed/NA 4=Minimal Assistance 1=Total Assistance 5=Supervision or Setup 2=Maximal Assistance 6=Modified [place] 3=Moderate Assistance 7=Complete [place] Therapy Quality Codes: 6 Independent with activity with or without an assistive device 5 Patient requires set up or clean up by helper. Patient completes activity by themselves 4 Supervision or touching assist (CGA). [place] provide cues , steadying assist 3 The helper provides less than half the effort to complete the activity 2 The helper provides more than half the effort to complete the activity 1 Dependent. The helper does all the effort to complete an activity 7 Patient refused to complete or attempt activity 9 The patient did not perform the activity before the current illness or injury 88 Not attempted due to Medical conditions or safety concerns Transfers (B, C, W/C) (FIM): 5 (SBA for safet/ balance. ) Scootin Rollin Roll Left to Right (QC): 3 Supine to/from Sit: 5 Sit to/from Stand: 4 Sit to Lying (QC): 3 Sit to Stand (QC): 4 Chair/Xio-ez-Ypisq Xfer(QC): 3 Car Transfer (QC): 3 Gait Training Does the Patient Walk?: Yes Gait (FIM): 4 Distance (FIM): 3=150 ft Distance: 150' x2 Walk 10 feet (QC): 4 Walk 50 ft with 2 Turns(QC): 4 Walk 150 ft (QC): 4 Walking 10ft/uneven surface-QC: 3 Gait Level of Assist: 4 Gait Persons Needed: 1 Gait Assistive Device: FWW Wheelchair Training Does the Pt Use a Wheelchair?: No Wheelchair (FIM): 4 Wheelchair Distance: 4=034-78 ft Distance: 75' Wheelchair Level of Assist: 5 Wheel 50 ft with 2 turns (QC): 5 Type of Wheelchair: Manual Stair Training Stairs (FIM): 1 #of Steps: 1 1 Step (curb) (QC): 3 Level of Assist: 4 Mental Status/Objective Comprehension: 4 Expression: 4 Social Interaction: 5 Problem Solvin Memory: 3 ADL-Treatment Feedin (increase timing to open items ) Eating (QC): 6 Groomin (SBA for safety/ balance. pt ecducation on proper placement of RW. pt demo correctly ) Oral Hygiene (QC): 4 Bathin (intermitted CGA for safety/ balance ) Bathing Location: L Arm, R Arm, L Upper Leg, R Upper Leg, L Lower Leg (including foot), R Lower Leg (including foot), Chest, Abdomen, Buttocks, Perineal Area Shower/Bathe Self (QC): 4 Upper Extremity Dressin (post skilled cuing pt demo ability to daryl button up shirt ) Upper Body Dressing (QC): 4 Lower Extremity Dressin (CGA while standing for safety/ balance. pt education on sitting to thread charlene LE for energy conservation. pt demo correctly. ) Lower Body Dressing (QC): 4 On/Off Footwear (QC): 4 Toiletin (SBA for safet/ balance. pt ecducation on proper placement of RW. pt demo correctly ) Toileting Hygiene (QC): 4 Toilet/Commode Transfer: 5 (SBA for safet/ balance. pt ecducation on proper placement of RW. pt demo correctly ) Toilet Transfer (QC): 4 Shower: 4 (use of RW, gait belt. CGA for safety/ balance) Assessment/Plan Assessment and Plan Assess & Plan/Chief Complaint Assessment: Fall with severe right arm and torso pain Debility CAD HTN HLP GERD Neuroendocrine tumor Dementia Plan: Pain control PT/OT Monitor closely Start treatment of dementia with Aricept Appreciate psych evaluation Daypass tomorrow (1) Debility (2) CAD (coronary artery disease) (3) Hyperlipemia (4) Hypothyroidism (5) GERD (gastroesophageal reflux disease) (6) Hypertension (7) Neuro-endocrine carcinoma (8) Diastolic CHF (9) Dementia JESSICA SALAZAR DO Jan 19, 2019 10:06
--- NOTE | 2019-01-19 11:38 | Physical Therapy Daily Note ---
PT Daily Note-Current Subjective Pt reports she has not pain, just breathing is hard. Agreeable to PT session Pain Numeric Pain Scale: 0-No Pain Appearance Upon arrival, pt found up walking in room with FWW without supervision. States she was trying to get ready. Pt assisted to bathroom to use toilet, SBA for pericare and transfer, SBA at sink to wash hands and brush teeth At end of session, pt sitting in recliner, chair alarm activated, re emphasized safety issues and not getting up without assist/supervision, use of call light. Pt provided with call light, phone and bedside table within reach. Fresh ice and ice water provided Mental Status Patient Orientation: Person, Place, Time, Eyes Open Transfers Therapy Code Descriptions/Definitions Functional [place] Measure: 0=Not Assessed/NA 4=Minimal Assistance 1=Total Assistance 5=Supervision or Setup 2=Maximal Assistance 6=Modified [place] 3=Moderate Assistance 7=Complete [place] Therapy Quality Codes: 6 Independent with activity with or without an assistive device 5 Patient requires set up or clean up by helper. Patient completes activity by themselves 4 Supervision or touching assist (CGA). [place] provide cues , steadying assist 3 The helper provides less than half the effort to complete the activity 2 The helper provides more than half the effort to complete the activity 1 Dependent. The helper does all the effort to complete an activity 7 Patient refused to complete or attempt activity 9 The patient did not perform the activity before the current illness or injury 88 Not attempted due to Medical conditions or safety concerns Transfers (B, C, W/C) (FIM): 5 min verb inst required for safety and hand placement, keeping walker in front of her during transitions as pt does tend to leave walker to the side before standing or sitting Weight Bearing Full Weight Bearing Full Weight Bearing Gait Training Does the Patient Walk?: Yes Gait (FIM): 5 Distance: 250, 150 Gait Level of Assist: 5 Gait Persons Needed: 1 Gait Assistive Device: FWW slow steady gait, no LOB, decreased step height and length, able to correct temporarily with instruction Exercises Standing: Retro gait (no UE support, x4 laps in // bars), Sit to Stand (20), Unilateral stance (30 sec each LE, attempting without UE support) Standing Reps: 10 ((+) tandem gait attempting without UE support in // bars x4 laps) Treatments transfers, safety, balance, strength, gait, activity tolerance, functional mobility, bathroom Assessment pt is forgetful with increased requirements for verb instruction and cues. Pt fatigues easily and has reports of breathing hard PT Short Term Goals Short Term Goals Time Frame: Jan 23, 2019 Transfers (B,C,W/C) (FIM): 4 (CGA) Gait (FIM): 4 (CGA) Gait Distance Comment: 150' Gait Level of Assist: 4 Gait Assistive Device: FWW Wheelchair Distance: 75' PT Penitentiary Goals Penitentiary Goals PT Welding Foreman Goals Time Frame: Feb 06, 2019 Transfers (B,C,W/C) (FIM): 5 Sit to Lying (QC): 4 Lying-Sitting on Side/Bed(QC): 4 Sit to Stand (QC): 4 Rollin Roll Left to Right (QC): 4 Chair/Dke-ty-Mpxww Xfer(QC): 4 Car Transfer (QC): 4 Gait (FIM): 5 Distance: 200' Walk 10 feet (QC): 4 Walk 10ft-Uneven Surface(QC): 4 Walk 50ft with 2 Turns (QC): 4 Walk 150 ft (QC): 4 Gait Level of Assist: 5 Stairs (FIM): 2 # of Steps: 4 1 Step (curb) (QC): 4 4 Steps (QC): 4 Stairs Level Of Assist: 4 PT Plan Treatment/Plan Treatment Plan: Continue Plan of Care Treatment Plan: Bed Mobility, Concurrent Therapy, Education, Functional Activity [place], Functional Strength, Group Therapy, Gait, Safety, Therapeutic Exercise, Transfers Treatment Duration: Feb 06, 2019 Frequency: At least 5 of 7 days/Wk (IRF) Estimated Hrs Per Day: 1.5 hours per day Patient and/or Family Agrees t: Yes Safety Risks/Education Patient Education: Gait Training, Transfer Techniques, Safety Issues Teaching Recipient: Patient Teaching Methods: Demonstration, Discussion Response to Teaching: Verbalize Understanding, Return Demonstration, Reinforcement Needed Time/GCodes Time In: 753 Time Out: 813 Total Billed Treatment Time: 20 Total Billed Treatment 1 visit, GT x 1 unit CRISTI RAMIREZ PTA Jan 19, 2019 11:38
[2019-01-19 16:17] VITALS: BP 94/54
[2019-01-19] MEDS: DONEPEZIL 5 MG (ARICEPT) TAB PO SCH (20:56)
[2019-01-19] MEDS: ATORVASTATIN 40 MG (LIPITOR) TABLET PO SCH (20:56)
[2019-01-20] MEDS: LEVOTHYROXINE 75 MCG (LEVOTHROID) TABLET PO SCH (05:31)
[2019-01-20] MEDS: BACLOFEN 10 MG (LIORESAL) TAB PO SCH ×3 (05:31→20:50)
[2019-01-20] MEDS: KCL 10 MEQ TAB (MICRO K) PO SCH (05:31)
[2019-01-20 05:50] VITALS: BP 124/70
--- NOTE | 2019-01-20 08:00 | NUR ---
STATES SLEPT WELL. DENIES PAIN.
[2019-01-20] MEDS: ACETAMINOPHEN 500 MG TAB (TYLENOL) PO SCH ×2 (08:48→20:50)
[2019-01-20] MEDS: ASPIRIN E.C. 81 MG (ECOTRIN) TAB PO SCH (08:49)
[2019-01-20] MEDS: LACTULOSE SYRUP 10GM/15ML (ENULOSE) 30ML UDC PO SCH ×2 (08:51→19:36)
[2019-01-20] MEDS: SENNA W/DOCUSATE (SENOKOT S) TABLET PO SCH ×2 (08:51→19:37)
[2019-01-20] MEDS: DICLOFENAC 1% GEL 100 GM (VOLTAREN) TUBE TOP SCH ×4 (08:52→20:50)
--- NOTE | 2019-01-20 10:47 | PM&R Progress Note ---
Subjective HPI/CC On Admission Date Seen by Provider: Jan 20, 2019 Time Seen by Provider: 10:45 Chief complaint: Severe right upper extremity pain with torso pain s/p fall. 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 She was in a great deal of pain, was noted to have anion gap acidosis due to new significant dehydration and fasting with ketosis but she was provided supportive care and PT but due to the debilitating severe pain she was in need of inpatient rehab for a short stay to work through the pain maintained on Tylenol and Baclofen, and to be monitored closely due to increased fall risk due to the pain issues. 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 Subjective/Events-last exam Dementia seems to be improved with Aricept Baclofen Q 8 hrs was restarted along with Tylenol and that regimen seems to be helping her PT will initiate heat pack therapy to help the right arm and she states she is still hurting and it is out of proportion of the signs on physical exam so unsure if this is her dementia and a behavior or based on true pain Likely the cognitive decline has caused the rest of unable to cope and work through this pain Daughter wants to bring her to [place] where her is for a daypass today at 330pm Bowels moving and confirmed with RN Conferred with RN Reviewed therapy notes Review of Systems Musculoskeletal: arm pain Neurological: Confusion Objective Exam Vital Signs Vital Signs Date Time Temp Pulse Resp B/P (MAP) Pulse Ox O2 Delivery O2 Flow Rate FiO2 01/20/19 09:00 Room Air 01/20/19 05:50 97.5 54 18 124/70 (88) 96 Capillary Refill : General Appearance: No Apparent Distress, WD/WN, Chronically ill HEENT: PERRL/EOMI, Normal ENT Inspection, Pharynx Normal, Moist Mucous Membranes Neck: Full Range of Motion, Normal Inspection, Non Tender, Supple Respiratory: Chest Non Tender, Lungs Clear, Normal Breath Sounds, No Accessory Muscle Use, No Respiratory Distress Cardiovascular: Regular Rate, Rhythm, No Edema, No Gallop, No JVD, No Murmur Gastrointestinal: Normal Bowel Sounds, No Organomegaly, No Pulsatile Mass, Non Tender, Soft Back: Normal Inspection, No CVA Tenderness, No Vertebral Tenderness, Decreased Range of Motion, Muscle Spasm Extremity: Normal Capillary Refill, Normal Inspection, Normal Range of Motion (right arm limited ROM due to pain), Non Tender, No Calf Tenderness, No Pedal Edema Neurologic/Psychiatric: Alert, Oriented x3, No Motor/Sensory Deficits, Normal Mood/Affect, check pilot II-XII Norm as Tested, Disoriented Skin: Normal Color, Warm/Dry Lymphatic: No Adenopathy Results/Procedures Lab Patient resulted labs reviewed. FIM Transfers Therapy Code Descriptions/Definitions Functional [place] Measure: 0=Not Assessed/NA 4=Minimal Assistance 1=Total Assistance 5=Supervision or Setup 2=Maximal Assistance 6=Modified [place] 3=Moderate Assistance 7=Complete [place] Therapy Quality Codes: 6 Independent with activity with or without an assistive device 5 Patient requires set up or clean up by helper. Patient completes activity by themselves 4 Supervision or touching assist (CGA). [place] provide cues , steadying assist 3 The helper provides less than half the effort to complete the activity 2 The helper provides more than half the effort to complete the activity 1 Dependent. The helper does all the effort to complete an activity 7 Patient refused to complete or attempt activity 9 The patient did not perform the activity before the current illness or injury 88 Not attempted due to Medical conditions or safety concerns Transfers (B, C, W/C) (FIM): 5 Scootin Rollin Roll Left to Right (QC): 3 Supine to/from Sit: 5 Sit to/from Stand: 4 Sit to Lying (QC): 3 Sit to Stand (QC): 4 Chair/Cjo-dd-Ftttm Xfer(QC): 3 Car Transfer (QC): 3 Gait Training Does the Patient Walk?: Yes Gait (FIM): 5 Distance (FIM): 3=150 ft Distance: 250, 150 Walk 10 feet (QC): 4 Walk 50 ft with 2 Turns(QC): 4 Walk 150 ft (QC): 4 Walking 10ft/uneven surface-QC: 3 Gait Level of Assist: 5 Gait Persons Needed: 1 Gait Assistive Device: FWW Wheelchair Training Does the Pt Use a Wheelchair?: No Wheelchair (FIM): 4 Wheelchair Distance: 6=793-15 ft Distance: 75' Wheelchair Level of Assist: 5 Wheel 50 ft with 2 turns (QC): 5 Type of Wheelchair: Manual Stair Training Stairs (FIM): 1 #of Steps: 1 1 Step (curb) (QC): 3 Level of Assist: 4 Mental Status/Objective Comprehension: 4 Expression: 4 Social Interaction: 5 Problem Solvin Memory: 3 ADL-Treatment Feedin (increase timing to open items ) Eating (QC): 6 Groomin (SBA for safety/ balance. pt ecducation on proper placement of RW. pt demo correctly ) Oral Hygiene (QC): 4 Bathin (intermitted CGA for safety/ balance ) Bathing Location: L Arm, R Arm, L Upper Leg, R Upper Leg, L Lower Leg (including foot), R Lower Leg (including foot), Chest, Abdomen, Buttocks, Perineal Area Shower/Bathe Self (QC): 4 Upper Extremity Dressin (post skilled cuing pt demo ability to daryl button up shirt ) Upper Body Dressing (QC): 4 Lower Extremity Dressin (CGA while standing for safety/ balance. pt education on sitting to thread charlene LE for energy conservation. pt demo correctly. ) Lower Body Dressing (QC): 4 On/Off Footwear (QC): 4 Toiletin (SBA for safet/ balance. pt ecducation on proper placement of RW. pt demo correctly ) Toileting Hygiene (QC): 4 Toilet/Commode Transfer: 5 (SBA for safet/ balance. pt ecducation on proper placement of RW. pt demo correctly ) Toilet Transfer (QC): 4 Shower: 4 (use of RW, gait belt. CGA for safety/ balance) Assessment/Plan Assessment and Plan Assess & Plan/Chief Complaint Assessment: Fall with severe right arm and torso pain Debility CAD HTN HLP GERD Neuroendocrine tumor Dementia Plan: Pain control PT/OT Monitor closely Start treatment of dementia with Aricept Appreciate psych evaluation Daypass today at 330pm (1) Debility (2) CAD (coronary artery disease) (3) Hyperlipemia (4) Hypothyroidism (5) GERD (gastroesophageal reflux disease) (6) Hypertension (7) Neuro-endocrine carcinoma (8) Diastolic CHF (9) Dementia JESSICA SALAZAR DO Jan 20, 2019 10:47
--- NOTE | 2019-01-20 15:15 | NUR ---
LEFT FOR DAY PASS ACCOMPANIED BY DAUGHTER. PATIENT AND DAUGHTER SIGNED RELEASE FORM. DAUGHTER STATES SHE HAS A WALKER AT HOME THAT THE PATIENT WILL USE. PLAN TO RETURN AROUND 1999.
--- NOTE | 2019-01-20 19:05 | NUR ---
RETURNED TO ROOM. DAUGHTER STATES IT WENT WELL.
[2019-01-20] MEDS: ATORVASTATIN 40 MG (LIPITOR) TABLET PO SCH (20:49)
[2019-01-20] MEDS: DONEPEZIL 5 MG (ARICEPT) TAB PO SCH (20:50)
[2019-01-21 05:53] VITALS: BP 125/66
[2019-01-21] MEDS: LEVOTHYROXINE 75 MCG (LEVOTHROID) TABLET PO SCH (06:13)
[2019-01-21] MEDS: KCL 10 MEQ TAB (MICRO K) PO SCH (06:13)
[2019-01-21] MEDS: BACLOFEN 10 MG (LIORESAL) TAB PO SCH ×3 (06:13→21:14)
[2019-01-21] MEDS: ACETAMINOPHEN 500 MG TAB (TYLENOL) PO SCH ×2 (08:27→21:14)
[2019-01-21] MEDS: ASPIRIN E.C. 81 MG (ECOTRIN) TAB PO SCH (08:27)
[2019-01-21] MEDS: LACTULOSE SYRUP 10GM/15ML (ENULOSE) 30ML UDC PO SCH ×2 (08:28→21:14)
[2019-01-21] MEDS: SENNA W/DOCUSATE (SENOKOT S) TABLET PO SCH ×2 (08:28→21:21)
[2019-01-21] MEDS: DICLOFENAC 1% GEL 100 GM (VOLTAREN) TUBE TOP SCH ×4 (08:28→21:15)
--- NOTE | 2019-01-21 09:16 | PM&R Progress Note ---
Subjective HPI/CC On Admission Date Seen by Provider: Jan 21, 2019 Time Seen by Provider: 09:15 Chief complaint: Severe right upper extremity pain with torso pain s/p fall. 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 She was in a great deal of pain, was noted to have anion gap acidosis due to new significant dehydration and fasting with ketosis but she was provided supportive care and PT but due to the debilitating severe pain she was in need of inpatient rehab for a short stay to work through the pain maintained on Tylenol and Baclofen, and to be monitored closely due to increased fall risk due to the pain issues. 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 Subjective/Events-last exam Day pass yesterday went very well. Ready to go home soon. Dementia seems to be helped by the Aricept. Bowels are moving. No falls. Overall moving her right arm and back, has minimal pain when she moves now. Overall doing very well. Conferred with RN. Reviewed therapy notes. Dramatic improvement in her status since admitted Review of Systems Musculoskeletal: arm pain Neurological: Confusion Objective Exam Vital Signs Vital Signs Date Time Temp Pulse Resp B/P (MAP) Pulse Ox O2 Delivery O2 Flow Rate FiO2 01/21/19 17:29 98.2 62 16 150/69 (96) 98 Room Air Capillary Refill : General Appearance: No Apparent Distress, WD/WN, Chronically ill HEENT: PERRL/EOMI, Normal ENT Inspection, Pharynx Normal, Moist Mucous Membranes Neck: Full Range of Motion, Normal Inspection, Non Tender, Supple Respiratory: Chest Non Tender, Lungs Clear, Normal Breath Sounds, No Accessory Muscle Use, No Respiratory Distress Cardiovascular: Regular Rate, Rhythm, No Edema, No Gallop, No JVD, No Murmur Gastrointestinal: Normal Bowel Sounds, No Organomegaly, No Pulsatile Mass, Non Tender, Soft Back: Normal Inspection, No CVA Tenderness, No Vertebral Tenderness, Decreased Range of Motion, Muscle Spasm Extremity: Normal Capillary Refill, Normal Inspection, Normal Range of Motion (right arm limited ROM due to pain), Non Tender, No Calf Tenderness, No Pedal Edema Neurologic/Psychiatric: Alert, Oriented x3, No Motor/Sensory Deficits, Normal Mood/Affect, university librarian II-XII Norm as Tested, Disoriented Skin: Normal Color, Warm/Dry Lymphatic: No Adenopathy Results/Procedures Lab Patient resulted labs reviewed. FIM Transfers Therapy Code Descriptions/Definitions Functional [place] Measure: 0=Not Assessed/NA 4=Minimal Assistance 1=Total Assistance 5=Supervision or Setup 2=Maximal Assistance 6=Modified [place] 3=Moderate Assistance 7=Complete [place] Therapy Quality Codes: 6 Independent with activity with or without an assistive device 5 Patient requires set up or clean up by helper. Patient completes activity by themselves 4 Supervision or touching assist (CGA). [place] provide cues , steadying assist 3 The helper provides less than half the effort to complete the activity 2 The helper provides more than half the effort to complete the activity 1 Dependent. The helper does all the effort to complete an activity 7 Patient refused to complete or attempt activity 9 The patient did not perform the activity before the current illness or injury 88 Not attempted due to Medical conditions or safety concerns Transfers (B, C, W/C) (FIM): 5 Scootin Rollin Roll Left to Right (QC): 3 Supine to/from Sit: 5 Sit to/from Stand: 4 Sit to Lying (QC): 3 Sit to Stand (QC): 4 Chair/Jay-jj-Icpne Xfer(QC): 3 Car Transfer (QC): 3 Gait Training Does the Patient Walk?: Yes Gait (FIM): 5 Distance (FIM): 3=150 ft Distance: 250, 150 Walk 10 feet (QC): 4 Walk 50 ft with 2 Turns(QC): 4 Walk 150 ft (QC): 4 Walking 10ft/uneven surface-QC: 3 Gait Level of Assist: 5 Gait Persons Needed: 1 Gait Assistive Device: FWW Wheelchair Training Does the Pt Use a Wheelchair?: No Wheelchair (FIM): 4 Wheelchair Distance: 2=119-59 ft Distance: 75' Wheelchair Level of Assist: 5 Wheel 50 ft with 2 turns (QC): 5 Type of Wheelchair: Manual Stair Training Stairs (FIM): 1 #of Steps: 1 1 Step (curb) (QC): 3 Level of Assist: 4 Mental Status/Objective Comprehension: 4 Expression: 4 Social Interaction: 5 Problem Solvin Memory: 3 ADL-Treatment Feedin (increase timing to open items ) Eating (QC): 6 Groomin (SBA for safety/ balance. pt ecducation on proper placement of RW. pt demo correctly ) Oral Hygiene (QC): 4 Bathin (intermitted CGA for safety/ balance ) Bathing Location: L Arm, R Arm, L Upper Leg, R Upper Leg, L Lower Leg (including foot), R Lower Leg (including foot), Chest, Abdomen, Buttocks, Perineal Area Shower/Bathe Self (QC): 4 Upper Extremity Dressin (post skilled cuing pt demo ability to daryl button up shirt ) Upper Body Dressing (QC): 4 Lower Extremity Dressin (CGA while standing for safety/ balance. pt education on sitting to thread charlene LE for energy conservation. pt demo jessica ectly. ) Lower Body Dressing (QC): 4 On/Off Footwear (QC): 4 Toiletin (SBA for safet/ balance. pt ecducation on proper placement of RW. pt demo correctly ) Toileting Hygiene (QC): 4 Toilet/Commode Transfer: 5 (SBA for safet/ balance. pt ecducation on proper placement of RW. pt demo correctly ) Toilet Transfer (QC): 4 Shower: 4 (use of RW, gait belt. CGA for safety/ balance) Assessment/Plan Assessment and Plan Assess & Plan/Chief Complaint Assessment: Fall with severe right arm and torso pain Debility CAD HTN HLP GERD Neuroendocrine tumor Dementia Plan: Pain control PT/OT Monitor closely Start treatment of dementia with Aricept Appreciate psych evaluation Daypass went well yesterday Dramatic improvement since admit (1) Debility (2) CAD (coronary artery disease) (3) Hyperlipemia (4) Hypothyroidism (5) GERD (gastroesophageal reflux disease) (6) Hypertension (7) Neuro-endocrine carcinoma (8) Diastolic CHF (9) Dementia JESSICA SALAZAR DO Jan 21, 2019 09:15
--- NOTE | 2019-01-21 09:17 | Occupational Ther Daily Note ---
OT Current Status-Daily Note Subjective pt laying in bed upon OT arrival in no apparent distress. pt agreed to OT TX session with foucs on increase activity tolerance, standing tolerance, and ADLs. pt complains of no pain. pt reports she want home on a day visit yesterday (monday) and used her walker and stated no concerns while home. Appearance noted pt urine dark and strong odor. NSG notified. Mental Status/Objective Patient Orientation: Person, Place, Time, Situation Therapy Code Descriptions/Definitions Functional [place] Measure: 0=Not Assessed/NA 4=Minimal Assistance 1=Total Assistance 5=Supervision or Setup 2=Maximal Assistance 6=Modified [place] 3=Moderate Assistance 7=Complete [place] ADL-Treatment Therapy Code Descriptions/Definitions Functional [place] Measure: 0=Not Assessed/NA 4=Minimal Assistance 1=Total Assistance 5=Supervision or Setup 2=Maximal Assistance 6=Modified [place] 3=Moderate Assistance 7=Complete [place] Therapy Quality Codes: 6 Independent with activity with or without an assistive device 5 Patient requires set up or clean up by helper. Patient completes activity by themselves 4 Supervision or touching assist (CGA). [place] provide cues , steadying assist 3 The helper provides less than half the effort to complete the activity 2 The helper provides more than half the effort to complete the activity 1 Dependent. The helper does all the effort to complete an activity 7 Patient refused to complete or attempt activity 9 The patient did not perform the activity before the current illness or injury 88 Not attempted due to Medical conditions or safety concerns Grooming (FIM): 5 (SBA for safety/ balance ) Oral Hygiene (QC): 5 Upper Body (FIM): 5 Upper Body Dressing (QC): 5 Lower Body Dressing (FIM): 5 Lower Body Dressing (QC): 5 On/Off Footwear (QC): 5 Toileting (FIM): 5 (safety/ balance noted use of RW and GB ) Toileting Hygiene (QC): 4 Transfers (B, C, W/C) (FIM): 5 Toilet/Commode Transfer (FIM): 5 Toilet Transfer (QC): 4 pt demo ability to perform bed mobility with setup secondary to bed alarm on. pt gathered clothing from closet with SBA secondary to requiring VC to use RW. pt placed RW in appropriately placement post skilled cuing but then required VC to remember to grab RW post gathering clothing. pt demo ability to perform dressing sitting EOB with no LOB noted. Other Treatment pt ambulated to TX gym with SBA using RW. once in gym pt perform UBE 12 minutes forward with min resistance and no rest breaks. pt then participated in WII bowling to increase standing tolerances and dyn standing. pt maintained standing for 15 minutes participating in game. pt required skilled education for proper standing to maintain full balance. noted pt use RUE and demo FULL ROM throughout activity and pt c/o of no pain throughout session. pt required MAX cuing for sequencing task with using wii control. noted post education pt would demo correct for 3 trails then asked "how do I do this again". noted no carry through of new technique with sequencing. pt then ambulated back to room and sat in recliner chair. pt c/o no pain . call light within reach, all needs met. Education OT Patient Education: Modified ADL techniques, Progress toward Goal/Update tx plan, Purpose of tx/functional activities, Rehab process, Safety issues, T ransfer techniques Teaching Recipient: Patient Teaching Methods: Demonstration, Discussion Response to Teaching: Verbalize Understanding, Return Demonstration OT Short Term Goals Short Term Goals Eating(FIM): 6 Grooming(FIM): 5 Bathing(FIM): 5 Bathing Location: L Arm, R Arm, L Upper Leg, R Upper Leg, L Lower Leg (including foot), R Lower Leg (including foot), Chest, Abdomen, Buttocks, Perineal Area Upper Body Dressing(FIM): 5 Lower Body Dressing(FIM): 5 Toileting(FIM): 5 Transfers (B,C,W/C) (FIM): 4 (CGA) Toilet/Commode Transfer(FIM): 5 Shower Transfer(FIM): 5 1=Demonstrate adherence to instructed precautions during ADL tasks. 2=Patient will verbalize/demonstrate understanding of assistive devices/modific ations for ADL. 3=Patient will improve strength/tolerance for activity to enable patient to perform ADL's. OT Wire Harness Assembler Goals Wire Harness Assembler Goals Eating (FIM): 7 Eating (QC): 6 Groomin Oral Hygiene (QC): 6 Bathing(FIM): 6 Bathing Location: L Arm, R Arm, L Upper Leg, R Upper Leg, L Lower Leg (including foot), R Lower Leg (including foot), Chest, Abdomen, Buttocks, Perineal Area Shower/Bathe Self (QC): 6 Upper Body Dressing(FIM): 6 Upper Body Dressing (QC): 6 Lower Body Dressing(FIM): 6 Lower Body Dressing (QC): 6 On/Off Footwear (QC): 6 Toileting(FIM): 6 Toileting Hygiene (QC): 6 Transfers (B,C,W/C) (FIM): 6 Toilet/Commode Transfer(FIM): 6 Toilet/Commode Transfer (QC): 6 Shower Transfer(FIM): 6 Additional Goals: 1-Demonstrate ADL Tasks, 2-Verbalize Understanding, 3- ImproveStrength/[place] 1=Demonstrate adherence to instructed precautions during ADL tasks. 2=Patient will verbalize/demonstrate understanding of assistive devices/modifications for ADL. 3=Patient will improve strength/tolerance for activity to enable patient to perform ADL's. OT Education/Plan Problem List/Assessment Assessment: Decreased Activ Tolerance, Decreased UE Strength, Impaired Funct Balance, Impaired I ADL's, Impaired Self-Care Skills pt present with functional limitations affecting areas of ADLS and functional transfers with deficits in the above mention. pt would benefit from skilled OT services to increase independence with ADL/ functional transfers. Discharge Recommendations Plan/Recommendations: Continue POC Barriers to Progress cognition Treatment Plan/Plan of Care Treatment,Training & Education: Yes Patient would benefit from OT for education, treatment and training to promote independence in ADL's, mobility, safety and/or upper extremity function for ADL's. Plan of Care: ADL Retraining, Caregiver Training, Concurrent Therapy, Functional Mobility, Group Exercise/Act as Ind, UE Funct Exercise/Act Treatment Duration: Feb 20, 2019 Frequency: At least 5 of 7 days/Wk (IRF) Estimated Hrs Per Day: 1 hour per day (60-90 minutes per day) Agreement: Yes Rehab Potential: Fair Time/GCodes Start Time: 08:00 Stop Time: 09:25 Billed Treatment Time ADL 45 minutes, 3 units FA 40 minutes, 3 units DOUGLAS EDWARDS OT Jan 21, 2019 09:17
--- NOTE | 2019-01-21 10:20 | NUR ---
Pastoral care visit.
--- NOTE | 2019-01-21 13:59 | Physical Therapy Daily Note ---
PT Daily Note-Current Subjective Pt. agrees to Rx. States she is dizzy off and on , not spinning just foggy and unsteady. Pt. states she is not afraid of falling. Pain Location: No Pain Reported Mental Status Patient Orientation: Normal For Age Transfers Therapy Code Descriptions/Definitions Functional [place] Measure: 0=Not Assessed/NA 4=Minimal Assistance 1=Total Assistance 5=Supervision or Setup 2=Maximal Assistance 6=Modified [place] 3=Moderate Assistance 7=Complete [place] Therapy Quality Codes: 6 Independent with activity with or without an assistive device 5 Patient requires set up or clean up by helper. Patient completes activity by themselves 4 Supervision or touching assist (CGA). [place] provide cues , steadying assist 3 The helper provides less than half the effort to complete the activity 2 The helper provides more than half the effort to complete the activity 1 Dependent. The helper does all the effort to complete an activity 7 Patient refused to complete or attempt activity 9 The patient did not perform the activity before the current illness or injury 88 Not attempted due to Medical conditions or safety concerns Transfers (B, C, W/C) (FIM): 6 Scootin Rollin Supine to/from Sit: 6 Sit to/from Stand: 6 Bed to/from Chair: 6 car TRF SBA x 2 trials Weight Bearing Full Weight Bearing Full Weight Bearing Gait Training Does the Patient Walk?: Yes Gait (FIM): 5 Distance (FIM): 3=150 ft (160x4,50x2) Gait Level of Assist: 5 Gait Persons Needed: 1 Gait Assistive Device: FWW slow, head down unless cued Stair Training Stair Training: Handrails/: 2 handrails Stairs (FIM): 4 #of Steps: 12 Stairs: Pattern: Reciprocal Level of Assist: 4 CGA and instruction for sequence , some fatigue after 12 steps, rested in chair Exercises Supine Ex: Bridging, Ankle pumps, Quad Set, Rolling, Glut sets, Heel Slides, Short Arc Quads, Scooting, Straight leg raise, Hip abd/add Supine Reps: 15 Seated Therapy Exercises: Ankle pumps, Sit to stand, Long arc quads, Hip flexion, Hip abd/add Seated Reps: 15 Standing: Hip Abduction, Hamstring curls, Heel/toe raises, Marching, Mini squats Standing Reps: 12 sidelying, clam shells and hip abduction x 12 bilat NuStep Minutes: 11 NuStep Workload: 4 Treatments toileted indep x 2 Assessment Current Status: Good Progress no LOB noted PT Short Term Goals Short Term Goals Time Frame: Jan 23, 2019 Transfers (B,C,W/C) (FIM): 4 (CGA) Gait (FIM): 4 (CGA) Gait Distance Comment: 150' Gait Level of Assist: 4 Gait Assistive Device: FWW Wheelchair Distance: 75' PT Intermediate Goals Linter Drier Operator Goals PT Intermediate Goals Time Frame: Feb 06, 2019 Transfers (B,C,W/C) (FIM): 5 Sit to Lying (QC): 4 Lying-Sitting on Side/Bed(QC): 4 Sit to Stand (QC): 4 Rollin Roll Left to Right (QC): 4 Chair/Dbu-si-Miyrv Xfer(QC): 4 Car Transfer (QC): 4 Gait (FIM): 5 Distance: 200' Walk 10 feet (QC): 4 Walk 10ft-Uneven Surface(QC): 4 Walk 50ft with 2 Turns (QC): 4 Walk 150 ft (QC): 4 Gait Level of Assist: 5 Stairs (FIM): 2 # of Steps: 4 1 Step (curb) (QC): 4 4 Steps (QC): 4 Stairs Level Of Assist: 4 PT Plan Treatment/Plan Treatment Plan: Continue Plan of Care Treatment Plan: Bed Mobility, Concurrent Therapy, Education, Functional Activity [place], Functional Strength, Group Therapy, Gait, Safety, Therapeutic Exercise, Transfers Treatment Duration: Feb 06, 2019 Frequency: At least 5 of 7 days/Wk (IRF) Estimated Hrs Per Day: 1.5 hours per day Patient and/or Family Agrees t: Yes Safety Risks/Education Patient Education: Gait Training, Transfer Techniques, Steps, Correct Positioning, Disease Process, Safety Issues Teaching Recipient: Patient Teaching Methods: Demonstration, Discussion Response to Teaching: Verbalize Understanding, Return Demonstration, Reinforcement Needed Time/GCodes Time In: 1100 (130) Time Out: 1200 (140) Total Billed Treatment Time: 60 (30) Total Billed Treatment 1,EX45m,GT30m,FA15m G Codes Necessary: ROSE Starks 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
--- NOTE | 2019-01-21 16:06 | Speech Therapy Daily Note ---
Speech Daily Progress Note Subjective Date Seen by Provider: Jan 21, 2019 Time Seen by Provider: 00:30 The patient was more alert today. Objective The patient completed problem solving tasks with 80% accuracy given minimal verbal cues. Assessment Assessment Current Status: Good Progress Treatment Plan Continue Plan of Care Communication Comprehension: 4 Expression: 4 Social Cognition Social Interaction: 5 Problem Solvin Memory: 3 Speech Short Term Goals Short Term Goals Short Term Goals 1) The patient will complete memory tasks with 80% or greater with minimal v erbal cues. 2) The patient will complete problem solving tasks with 80% or greater with minimal verbal cues. 3) The patient will demonstrate following multi-step directions with 80% or greater with minimal verbal cues. Speech Board Design Engineer Goals [facility]cf Goals The patient will improve safety and independence in order to function safely in her environment. Speech-Plan Patient/Family Goals Patient/Family Goals: The patient plans on returning home with family support post rehab. Treatment Plan Speech Therapy Treatment Plan: Continue Plan of Care The patient is showing good progress with cognitive from baseline. Treatment Duration: Jan 25, 2019 Frequency: 5 times per week Estimated Hrs Per Day: .5 hour per day Rehab Potential: Fair Barriers to Learning: Patient has cognitive deficits. Pt/Family Agrees to Plan: Yes Safety Risks/Education Teaching Recipient: Patient Teaching Methods: Discussion Response to Teaching: Verbalize Understanding Education Topics Provided: Continued safety within her room. Time Speech Therapy Time In: 13:00 Speech Therapy Time Out: 13:30 Total Billed Time: 30 Billed Treatment Time 1[address] Jan 21, 2019 16:06
[2019-01-21 17:29] VITALS: BP 150/69
[2019-01-21] MEDS: DONEPEZIL 5 MG (ARICEPT) TAB PO SCH (21:14)
[2019-01-21] MEDS: ATORVASTATIN 40 MG (LIPITOR) TABLET PO SCH (21:14)
[2019-01-22] MEDS: LEVOTHYROXINE 75 MCG (LEVOTHROID) TABLET PO SCH (05:58)
[2019-01-22] MEDS: KCL 10 MEQ TAB (MICRO K) PO SCH (05:58)
[2019-01-22] MEDS: BACLOFEN 10 MG (LIORESAL) TAB PO SCH (05:58)
[2019-01-22 06:07] VITALS: BP 150/71
[2019-01-22 06:50] LABS: BASOPHILS % (AUTO) 1 % (0-10); EOSINOPHILS % (AUTO) 1 % (0-10); HEMATOCRIT 36 % (35-52); HEMOGLOBIN 11.6 G/DL (11.5-16.0); LYMPHOCYTES # (AUTO) 1.9 X 10^3 (1.0-4.0); LYMPHOCYTES % (AUTO) 45 % (12-44); MEAN CORPUSCULAR HEMOGLOBIN 28 PG (25-34); MEAN CORPUSCULAR HGB CONC 33 G/DL (32-36); MEAN CORPUSCULAR VOLUME 87 FL (80-99); MEAN PLATELET VOLUME 9.2 FL (7.4-10.4); MONOCYTES # (AUTO) 0.3 X 10^3 (0.0-1.0); MONOCYTES % (AUTO) 8 % (0-12); NEUTROPHILS # (AUTO) 1.9 X 10^3 (1.8-7.8); NEUTROPHILS % (AUTO) 46 % (42-75); PLATELET COUNT 313 10^3/uL (130-400); RED CELL DISTRIBUTION WIDTH 14.2 % (10.0-14.5); WHITE BLOOD COUNT 4.2 10^3/uL (4.3-11.0)
[2019-01-22 07:16] LABS: ALANINE AMINOTRANSFERASE 67 U/L (0-55); ALBUMIN 3.5 GM/DL (3.2-4.5); ALKALINE PHOSPHATASE 173 U/L (40-136); BILIRUBIN,TOTAL 0.2 MG/DL (0.1-1.0); BUN/CREATININE RATIO 18; CARBON DIOXIDE 26 MMOL/L (21-32); CHLORIDE 108 MMOL/L (98-107); CREATININE SERUM 0.66 MG/DL (0.60-1.30); GFR ESTIMATED > 60; GLUCOSE 85 MG/DL (70-105); SODIUM 142 MMOL/L (135-145); TOTAL PROTEIN 6.6 GM/DL (6.4-8.2)
--- NOTE | 2019-01-22 08:00 | NUR ---
DR. SALAZAR AWARE OF ELEVATED LIVER ENZYMES AND SINCE PATIENT STATES NO FURTHER PAIN IN RIGHT SHOULDER, TYLENOL SCHEDULED AND CHANGED TO PRN ONLY. LIPITOR ALSO PUT ON HOLD. BACLOFEN AND VOLTAREN CREAM CHANGED TO PRN BECAUSE NO LONGER NEEDED ON A SCHEDULED BASIS.
--- NOTE | 2019-01-22 09:11 | PM&R Progress Note ---
Subjective HPI/CC On Admission Date Seen by Provider: Jan 22, 2019 Time Seen by Provider: 09:00 Chief complaint: Severe right upper extremity pain with torso pain s/p fall. 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 She was in a great deal of pain, was noted to have anion gap acidosis due to new significant dehydration and fasting with ketosis but she was provided supportive care and PT but due to the debilitating severe pain she was in need of inpatient rehab for a short stay to work through the pain maintained on Tylenol and Baclofen, and to be monitored closely due to increased fall risk due to the pain issues. 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 Subjective/Events-last exam Day pass has improved morale and helped confidence Ready to go home soon. Dementia seems to be helped by the Aricept. Will maintain that at DC Bowels are moving well. No falls. Overall moving her right arm and back, has minimal pain when she moves now. APAP and Baclofen will be changed to prn Elevated liver enzymes will be helped with decreased APAP and holding statin Overall doing very well. Conferred with RN. Reviewed therapy notes. Dramatic improvement in her status since admitted Review of Systems General: Fatigue Objective Exam Vital Signs Vital Signs Date Time Temp Pulse Resp B/P (MAP) Pulse Ox O2 Delivery O2 Flow Rate FiO2 01/22/19 06:07 97.9 81 18 150/71 (97) 97 Room Air Capillary Refill : General Appearance: No Apparent Distress, WD/WN, Chronically ill HEENT: PERRL/EOMI, Normal ENT Inspection, Pharynx Normal, Moist Mucous Membranes Neck: Full Range of Motion, Normal Inspection, Non Tender, Supple Respiratory: Chest Non Tender, Lungs Clear, Normal Breath Sounds, No Accessory Muscle Use, No Respiratory Distress Cardiovascular: Regular Rate, Rhythm, No Edema, No Gallop, No JVD, No Murmur Gastrointestinal: Normal Bowel Sounds, No Organomegaly, No Pulsatile Mass, Non Tender, Soft Back: Normal Inspection, No CVA Tenderness, No Vertebral Tenderness, Decreased Range of Motion, Muscle Spasm Extremity: Normal Capillary Refill, Normal Inspection, Normal Range of Motion (right arm limited ROM due to pain), Non Tender, No Calf Tenderness, No Pedal Edema Neurologic/Psychiatric: Alert, Oriented x3, No Motor/Sensory Deficits, Normal Mood/Affect, nursing program chair II-XII Norm as Tested, Disoriented Skin: Normal Color, Warm/Dry Lymphatic: No Adenopathy Results/Procedures Lab Laboratory Tests 01/22/19 06:10 Patient resulted labs reviewed. FIM Transfers Therapy Code Descriptions/Definitions Functional [place] Measure: 0=Not Assessed/NA 4=Minimal Assistance 1=Total Assistance 5=Supervision or Setup 2=Maximal Assistance 6=Modified [place] 3=Moderate Assistance 7=Complete [place] Therapy Quality Codes: 6 Independent with activity with or without an assistive device 5 Patient requires set up or clean up by helper. Patient completes activity by themselves 4 Supervision or touching assist (CGA). [place] provide cues , steadying assist 3 The helper provides less than half the effort to complete the activity 2 The helper provides more than half the effort to complete the activity 1 Dependent. The helper does all the effort to complete an activity 7 Patient refused to complete or attempt activity 9 The patient did not perform the activity before the current illness or injury 88 Not attempted due to Medical conditions or safety concerns Transfers (B, C, W/C) (FIM): 6 Scootin Rollin Roll Left to Right (QC): 3 Supine to/from Sit: 6 Sit to/from Stand: 6 Sit to Lying (QC): 3 Sit to Stand (QC): 4 Chair/Hbg-bc-Kwfyc Xfer(QC): 3 Bed to/from Chair: 6 Car Transfer (QC): 3 Gait Training Does the Patient Walk?: Yes Gait (FIM): 5 Distance (FIM): 3=150 ft (160x4,50x2) Distance: 250, 150 Walk 10 feet (QC): 4 Walk 50 ft with 2 Turns(QC): 4 Walk 150 ft (QC): 4 Walking 10ft/uneven surface-QC: 3 Gait Level of Assist: 5 Gait Persons Needed: 1 Gait Assistive Device: FWW Wheelchair Training Does the Pt Use a Wheelchair?: No Wheelchair (FIM): 4 Wheelchair Distance: 6=118-26 ft Distance: 75' Wheelchair Level of Assist: 5 Wheel 50 ft with 2 turns (QC): 5 Type of Wheelchair: Manual Stair Training Stair Training: Handrails/: 2 handrails Stairs (FIM): 4 #of Steps: 12 1 Step (curb) (QC): 3 Stairs: Pattern: Reciprocal Level of Assist: 4 Mental Status/Objective Comprehension: 4 Expression: 4 Social Interaction: 5 Problem Solvin Memory: 3 ADL-Treatment Feedin (increase timing to open items ) Eating (QC): 6 Groomin (SBA for safety/ balance ) Oral Hygiene (QC): 5 Bathin (intermitted CGA for safety/ balance ) Bathing Location: L Arm, R Arm, L Upper Leg, R Upper Leg, L Lower Leg (including foot), R Lower Leg (including foot), Chest, Abdomen, Buttocks, Perineal Area Shower/Bathe Self (QC): 4 Upper Extremity Dressin Upper Body Dressing (QC): 5 Lower Extremity Dressin Lower Body Dressing (QC): 5 On/Off Footwear (QC): 5 Toiletin (safety/ balance noted use of RW and GB ) Toileting Hygiene (QC): 4 Toilet/Commode Transfer: 5 Toilet Transfer (QC): 4 Shower: 4 (use of RW, gait belt. CGA for safety/ balance) Assessment/Plan Assessment and Plan Assess & Plan/Chief Complaint Assessment: Fall with severe right arm and torso pain Debility CAD HTN HLP GERD Neuroendocrine tumor Dementia Elevated LFT's Plan: Pain control PT/OT Monitor closely Start treatment of dementia with Aricept Appreciate psych evaluation Hold statin and decrease APAP Dramatic improvement since admit (1) Debility (2) CAD (coronary artery disease) (3) Hyperlipemia (4) Hypothyroidism (5) GERD (gastroesophageal reflux disease) (6) Hypertension (7) Neuro-endocrine carcinoma (8) Diastolic CHF (9) Dementia (10) Liver enzyme elevation JESSICA SALAZAR DO Jan 22, 2019 09:11
[2019-01-22] MEDS: SENNA W/DOCUSATE (SENOKOT S) TABLET PO SCH ×2 (09:21→20:50)
[2019-01-22] MEDS: ASPIRIN E.C. 81 MG (ECOTRIN) TAB PO SCH (09:21)
[2019-01-22] MEDS: LACTULOSE SYRUP 10GM/15ML (ENULOSE) 30ML UDC PO SCH ×2 (09:21→20:50)
[2019-01-22] MEDS ORDERED: BACLOFEN 10 MG (LIORESAL) TAB PO PRN (09:30)
[2019-01-22] MEDS ORDERED: DICLOFENAC 1% GEL 100 GM (VOLTAREN) TUBE TOP PRN (09:30)
--- NOTE | 2019-01-22 11:01 | Occupational Ther Daily Note ---
OT Current Status-Daily Note Subjective laying in bed upon OT arrival pt reports her breakfast was good and she c/o no pain. pt stated she is ready to go home. pt still requiring cuing for safety Mental Status/Objective Patient Orientation: Person, Place, Time, Situation Therapy Code Descriptions/Definitions Functional [place] Measure: 0=Not Assessed/NA 4=Minimal Assistance 1=Total Assistance 5=Supervision or Setup 2=Maximal Assistance 6=Modified [place] 3=Moderate Assistance 7=Complete [place] ADL-Treatment Therapy Code Descriptions/Definitions Functional [place] Measure: 0=Not Assessed/NA 4=Minimal Assistance 1=Total Assistance 5=Supervision or Setup 2=Maximal Assistance 6=Modified [place] 3=Moderate Assistance 7=Complete [place] Therapy Quality Codes: 6 Independent with activity with or without an assistive device 5 Patient requires set up or clean up by helper. Patient completes activity by themselves 4 Supervision or touching assist (CGA). [place] provide cues , steadying assist 3 The helper provides less than half the effort to complete the activity 2 The helper provides more than half the effort to complete the activity 1 Dependent. The helper does all the effort to complete an activity 7 Patient refused to complete or attempt activity 9 The patient did not perform the activity before the current illness or injury 88 Not attempted due to Medical conditions or safety concerns Other Treatment pt demo ability to perform bed mobility MOD I and perform LB dressing (shoes and socks ) MOD I. pt ambulated to to [employer] approx 400 ft with supervision and FRW to increase topographical orientation. pt required MOD VC for direction/ orientation. pt demo ability to perform functional mobility throughout [employer] with MIN cuing for safety while using RW. pt education on energy conservation with using the 4"p" handout provided. pt read through handout with therapist and all question answered. pt able to state examples of incorporating trained technique with own daily activities. pt then ambulated back to [place] gym with SBA requiring cuing for direction. once in gym pt given HEP to increase charlene UE for daily activities. handout provided. pt perform with 2# dumbbell 10X1 shoulder flex/ ext/ ABB. ABD, 10X 1 elbow flex/ ext/ pronation/ supination. pt then ambulated back to room with SBA and sat in recliner chair. all needs met. call light within reach at end of session. Education OT Patient Education: Energy conservation, Instructions don/doff splint/brace, Progress toward Goal/Update tx plan, Purpose of tx/functional activities, Safety issues, Transfer techniques Teaching Recipient: Patient Teaching Methods: Demonstration, Discussion Response to Teaching: Verbalize Understanding, Return Demonstration OT Short Term Goals Short Term Goals Eating(FIM): 6 Grooming(FIM): 5 Bathing(FIM): 5 Bathing Location: L Arm, R Arm, L Upper Leg, R Upper Leg, L Lower Leg (including foot), R Lower Leg (including foot), Chest, Abdomen, Buttocks, Perineal Area Upper Body Dressing(FIM): 5 Lower Body Dressing(FIM): 5 Toileting(FIM): 5 Transfers (B,C,W/C) (FIM): 4 (CGA) Toilet/Commode Transfer(FIM): 5 Shower Transfer(FIM): 5 1=Demonstrate adherence to instructed precautions during ADL tasks. 2=Patient will verbalize/demonstrate understanding of assistive devices/modifications for ADL. 3=Patient will improve strength/tolerance for activity to enable patient to perform ADL's. OT Power Shovel Operator Helper Goals [place]way Goals Eating (FIM): 7 Eating (QC): 6 Groomin Oral Hygiene (QC): 6 Bathing(FIM): 6 Bathing Location: L Arm, R Arm, L Upper Leg, R Upper Leg, L Lower Leg (including foot), R Lower Leg (including foot), Chest, Abdomen, Buttocks, Perineal Area Shower/Bathe Self (QC): 6 Upper Body Dressing(FIM): 6 Upper Body Dressing (QC): 6 Lower Body Dressing(FIM): 6 Lower Body Dressing (QC): 6 On/Off Footwear (QC): 6 Toileting(FIM): 6 Toileting Hygiene (QC): 6 Transfers (B,C,W/C) (FIM): 6 Toilet/Commode Transfer(FIM): 6 Toilet/Commode Transfer (QC): 6 Shower Transfer(FIM): 6 Additional Goals: 1-Demonstrate ADL Tasks, 2-Verbalize Understanding, 3- ImproveStrength/[place] 1=Demonstrate adherence to instructed precautions during ADL tasks. 2=Patient will verbalize/demonstrate understanding of assistive device s/modifications for ADL. 3=Patient will improve strength/tolerance for activity to enable patient to perform ADL's. OT Education/Plan Problem List/Assessment Assessment: Decreased Activ Tolerance, Decreased UE Strength, Impaired Cognition, Impaired Funct Balance, Impaired I ADL's, Impaired Self-Care Skills pt present with functional limitations affecting areas of ADLS and functional transfers with deficits in the above mention. pt would benefit from skilled OT s ervices to increase independence with ADL/ functional transfers. Discharge Recommendations Plan/Recommendations: Continue POC Treatment Plan/Plan of Care Treatment,Training & Education: Yes Patient would benefit from OT for education, treatment and training to promote independence in ADL's, mobility, safety and/or upper extremity function for ADL's. Plan of Care: ADL Retraining, Caregiver Training, Concurrent Therapy, Functional Mobility, Group Exercise/Act as Ind, UE Funct Exercise/Act Treatment Duration: Feb 20, 2019 Frequency: At least 5 of 7 days/Wk (IRF) Estimated Hrs Per Day: 1 hour per day (60-90 minutes per day) Agreement: Yes Rehab Potential: Fair Time/GCodes Start Time: 08:00 Stop Time: 09:15 Billed Treatment Time EX 30 minutes, 2 units FA 45 minutes, 3 units DOUGLAS EDWARDS OT Jan 22, 2019 11:01
--- NOTE | 2019-01-22 12:23 | Physical Therapy Daily Note ---
PT Daily Note-Current Subjective Pt sitting in recliner upon arrival. Pt agrees to PT. Pt demonstrated confusion during tx and needs redirection. Pain Location: No Pain Reported Mental Status Patient Orientation: Person, Confused, Place Transfers Therapy Code Descriptions/Definitions Functional [place] Measure: 0=Not Assessed/NA 4=Minimal Assistance 1=Total Assistance 5=Supervision or Setup 2=Maximal Assistance 6=Modified [place] 3=Moderate Assistance 7=Complete [place] Therapy Quality Codes: 6 Independent with activity with or without an assistive device 5 Patient requires set up or clean up by helper. Patient completes activity by themselves 4 Supervision or touching assist (CGA). [place] provide cues , steadying assist 3 The helper provides less than half the effort to complete the activity 2 The helper provides more than half the effort to complete the activity 1 Dependent. The helper does all the effort to complete an activity 7 Patient refused to complete or attempt activity 9 The patient did not perform the activity before the current illness or injury 88 Not attempted due to Medical conditions or safety concerns Scootin Sit to/from Stand: 5 Sit to Stand (QC): 5 Weight Bearing Full Weight Bearing Full Weight Bearing Gait Training Does the Patient Walk?: Yes Gait (FIM): 5 Distance (FIM): 3=150 ft Distance: 150' x2 Walk 10 feet (QC): 5 Walk 50 ft with 2 Turns(QC): 5 Walk 150 ft (QC): 5 Gait Level of Assist: 5 Gait Persons Needed: 1 Gait Assistive Device: FWW Pt needs VC for NBOS. Wheelchair Training Does the Pt Use a Wheelchair?: No Treatments Pt transfers to standing then uses restroom before leaving room. Pt ambulates in hallway. Pt then uses NuStep for 15m at WL 5. Pt ambulates in hallway then returns to room at end of tx. Pt resting Supine in bed with all needs met, call light in hand. Assessment Current Status: Good Progress Pt remains confused/shows signs of Dementia and needs repeated VC for transfers and safety. PT Short Term Goals Short Term Goals Time Frame: Jan 23, 2019 Transfers (B,C,W/C) (FIM): 4 (CGA) Gait (FIM): 4 (CGA) Gait Distance Comment: 150' Gait Level of Assist: 4 Gait Assistive Device: FWW Wheelchair Distance: 75' PT Prison Goals Prison Goals PT [place] Goals Time Frame: Feb 06, 2019 Transfers (B,C,W/C) (FIM): 5 Sit to Lying (QC): 4 Lying-Sitting on Side/Bed(QC): 4 Sit to Stand (QC): 4 Rollin Roll Left to Right (QC): 4 Chair/Abz-vc-Afwka Xfer(QC): 4 Car Transfer (QC): 4 Gait (FIM): 5 Distance: 200' Walk 10 feet (QC): 4 Walk 10ft-Uneven Surface(QC): 4 Walk 50ft with 2 Turns (QC): 4 Walk 150 ft (QC): 4 Gait Level of Assist: 5 Stairs (FIM): 2 # of Steps: 4 1 Step (curb) (QC): 4 4 Steps (QC): 4 Stairs Level Of Assist: 4 PT Plan Problem List Problem List: Activity Tolerance, Functional Strength, Safety, Gait Treatment/Plan Treatment Plan: Continue Plan of Care Treatment Plan: Bed Mobility, Concurrent Therapy, Education, Functional Activity Arabella, Functional Strength, Group Therapy, Gait, Safety, Therapeutic Exercise, Transfers Treatment Duration: Feb 06, 2019 Frequency: At least 5 of 7 days/Wk (IRF) Estimated Hrs Per Day: 1.5 hours per day Patient and/or Family Agrees t: Yes Safety Risks/Education Patient Education: Gait Training, Transfer Techniques, Correct Positioning, Safety Issues Teaching Recipient: Patient Teaching Methods: Discussion Response to Teaching: Verbalize Understanding, Reinforcement Needed Time/GCodes Time In: 1130 Time Out: 1215 Total Billed Treatment Time: 45 Total Billed Treatment 1, GT (15m), FA (15m) & EX (15m) G Codes Necessary: SILVIA Juan PTA Jan 22, 2019 12:23
--- NOTE | 2019-01-22 14:52 | Physical Therapy Daily Note ---
PT Daily Note-Current Subjective Pt sitting in recliner upon arrival. Pt agrees to PT. Pain Location: No Pain Reported Mental Status Patient Orientation: Person, Confused, Place Transfers Therapy Code Descriptions/Definitions Functional [place] Measure: 0=Not Assessed/NA 4=Minimal Assistance 1=Total Assistance 5=Supervision or Setup 2=Maximal Assistance 6=Modified [place] 3=Moderate Assistance 7=Complete [place] Therapy Quality Codes: 6 Independent with activity with or without an assistive device 5 Patient requires set up or clean up by helper. Patient completes activity by themselves 4 Supervision or touching assist (CGA). [place] provide cues , steadying assist 3 The helper provides less than half the effort to complete the activity 2 The helper provides more than half the effort to complete the activity 1 Dependent. The helper does all the effort to complete an activity 7 Patient refused to complete or attempt activity 9 The patient did not perform the activity before the current illness or injury 88 Not attempted due to Medical conditions or safety concerns Scootin Supine to/from Sit: 5 Sit to/from Stand: 5 Sit to Lying (QC): 5 Sit to Stand (QC): 5 Weight Bearing Full Weight Bearing Full Weight Bearing Gait Training Does the Patient Walk?: Yes Gait (FIM): 5 Distance (FIM): 3=150 ft Distance: 150' Walk 10 feet (QC): 5 Walk 50 ft with 2 Turns(QC): 5 Walk 150 ft (QC): 5 Gait Level of Assist: 5 Gait Persons Needed: 1 Gait Assistive Device: FWW Pt continues to work on widening her DALE. Wheelchair Training Does the Pt Use a Wheelchair?: No Exercises Seated Therapy Exercises: Ankle pumps, Long arc quads, Hip flexion, Kicking activity Seated Reps: 20 Treatments Pt transfers from recliner to standing then ambulates in hallway using FWW. Pt completes Seated Ex then short RB. Pt ambulates in hallway and returns to room at end of tx. Pt resting Supine in bed with all needs met, call light in hand. Assessment Current Status: Good Progress Pt needs redirection at times for safety. PT Short Term Goals Short Term Goals Time Frame: Jan 23, 2019 Transfers (B,C,W/C) (FIM): 4 (CGA) Gait (FIM): 4 (CGA) Gait Distance Comment: 150' Gait Level of Assist: 4 Gait Assistive Device: FWW Wheelchair Distance: 75' PT Jail Goals Human Performance Technologist Goals PT Jail Goals Time Frame: Feb 06, 2019 Transfers (B,C,W/C) (FIM): 5 Sit to Lying (QC): 4 Lying-Sitting on Side/Bed(QC): 4 Sit to Stand (QC): 4 Rollin Roll Left to Right (QC): 4 Chair/Fep-gp-Ckeld Xfer(QC): 4 Car Transfer (QC): 4 Gait (FIM): 5 Distance: 200' Walk 10 feet (QC): 4 Walk 10ft-Uneven Surface(QC): 4 Walk 50ft with 2 Turns (QC): 4 Walk 150 ft (QC): 4 Gait Level of Assist: 5 Stairs (FIM): 2 # of Steps: 4 1 Step (curb) (QC): 4 4 Steps (QC): 4 Stairs Level Of Assist: 4 PT Plan Problem List Problem List: Activity Tolerance, Safety, Gait, Transfer Treatment/Plan Treatment Plan: Continue Plan of Care Treatment Plan: Bed Mobility, Concurrent Therapy, Education, Functional Activity [place]ella, Functional Strength, Group Therapy, Gait, Safety, Therapeutic Exercise, Transfers Treatment Duration: Feb 06, 2019 Frequency: At least 5 of 7 days/Wk (IRF) Estimated Hrs Per Day: 1.5 hours per day Patient and/or Family Agrees t: Yes Safety Risks/Education Patient Education: Gait Training, Transfer Techniques, Correct Positioning, Safety Issues Teaching Recipient: Patient Teaching Methods: Discussion Response to Teaching: Verbalize Understanding, Reinforcement Needed Time/GCodes Time In: 1400 Time Out: 1430 Total Billed Treatment Time: 30 Total Billed Treatment 1, GT (15m) & EX (15m) G Codes Necessary: SILVIA Juan TOBACCO SHAKER Jan 22, 2019 14:52
--- NOTE | 2019-01-22 15:57 | Speech Therapy Daily Note ---
Speech Daily Progress Note Subjective Date Seen by Provider: Jan 22, 2019 Time Seen by Provider: 00:30 The patient stated she was tired this morning. Objective The patient completed memory tasks related to her daily needs with 80% given moderate verbal cues. Assessment Assessment Current Status: Good Progress Treatment Plan Continue Plan of Care Communication Comprehension: 4 Expression: 4 Social Cognition Social Interaction: 5 Problem Solvin Memory: 3 Speech Short Term Goals Short Term Goals Short Term Goals 1) The patient will complete memory tasks with 80% or greater with minimal verbal cues. 2) The patient will complete problem solving tasks with 80% or greater with minimal verbal cues. 3) The patient will demonstrate following multi-step directions with 80% or greater with minimal verbal cues. Speech Senior Care Goals Warp Knitting Machine Operator Goals The patient will improve safety and independence in order to function safely in her environment. Speech-Plan Patient/Family Goals Patient/Family Goals: The patient plans to return home alone post rehab. It is not considered to be the safest placement. Treatment Plan Speech Therapy Treatment Plan: Continue Plan of Care The patient has made progress as a result of skilled intervention. Treatment Duration: Jan 25, 2019 Frequency: 5 times per week Estimated Hrs Per Day: .5 hour per day Rehab Potential: Fair Barriers to Learning: Memory deficits Pt/Family Agrees to Plan: Yes Safety Risks/Education Teaching Recipient: Patient Teaching Methods: Discussion Response to Teaching: Verbalize Understanding Education Topics Provided: Safety within her room Time Speech Therapy Time In: 09:30 Speech Therapy Time Out: 10:00 Total Billed Time: 30 Billed Treatment Time 1[address] Jan 22, 2019 15:57
[2019-01-22 16:27] VITALS: BP 108/65
--- NOTE | 2019-01-22 18:00 | NUR ---
DAUGHTER VISITING. NO CHANGES.
--- NOTE | 2019-01-22 19:10 | NUR ---
bedside report received from STERLING FITZPATRICK, assume care of pt
[2019-01-22] MEDS: DONEPEZIL 5 MG (ARICEPT) TAB PO SCH (20:48)
--- NOTE | 2019-01-22 20:48 | NUR ---
refused Enulose & Senokot tonight
[2019-01-22] MEDS: MELATONIN 3 MG TABLET PO PRN (20:49)
--- NOTE | 2019-01-22 21:00 | NUR ---
assessments & interventions completed, see assessments & interventions
[2019-01-23 05:50] VITALS: BP 145/65
[2019-01-23] MEDS: KCL 10 MEQ TAB (MICRO K) PO SCH (06:34)
[2019-01-23] MEDS: LEVOTHYROXINE 75 MCG (LEVOTHROID) TABLET PO SCH (06:34)
--- NOTE | 2019-01-23 07:06 | NUR ---
bedside report given to STERLING FITZPATRICK
--- NOTE | 2019-01-23 08:00 | NUR ---
CONTINUES TO DENY RIGHT SHOULDER PAIN OR OTHER DISCOMFORTS. LESS CONFUSED TODAY.
[2019-01-23] MEDS: ASPIRIN E.C. 81 MG (ECOTRIN) TAB PO SCH (08:07)
[2019-01-23] MEDS: SENNA W/DOCUSATE (SENOKOT S) TABLET PO SCH ×2 (08:07→20:07)
[2019-01-23] MEDS: LACTULOSE SYRUP 10GM/15ML (ENULOSE) 30ML UDC PO SCH ×2 (08:09→19:59)
--- NOTE | 2019-01-23 08:29 | Occupational Ther Daily Note ---
OT Current Status-Daily Note Subjective pt sitting in chair upon OT arrival in no apparent distress. pt agreed to OT TX session with focus on increasing independence with ADLS/ functional transfers. pt reports no pain. Pain Numeric Pain Scale: 0-No Pain Mental Status/Objective Patient Orientation: Person, Place, Time, Situation Therapy Code Descriptions/Definitions Functional [place] Measure: 0=Not Assessed/NA 4=Minimal Assistance 1=Total Assistance 5=Supervision or Setup 2=Maximal Assistance 6=Modified [place] 3=Moderate Assistance 7=Complete [place] ADL-Treatment Therapy Code Descriptions/Definitions Functional [place] Measure: 0=Not Assessed/NA 4=Minimal Assistance 1=Total Assistance 5=Supervision or Setup 2=Maximal Assistance 6=Modified [place] 3=Moderate Assistance 7=Complete [place] Therapy Quality Codes: 6 Independent with activity with or without an assistive device 5 Patient requires set up or clean up by helper. Patient completes activity by themselves 4 Supervision or touching assist (CGA). [place] provide cues , steadying assist 3 The helper provides less than half the effort to complete the activity 2 The helper provides more than half the effort to complete the activity 1 Dependent. The helper does all the effort to complete an activity 7 Patient refused to complete or attempt activity 9 The patient did not perform the activity before the current illness or injury 88 Not attempted due to Medical conditions or safety concerns Eating (FIM): 7 Eating (QC): 6 Grooming (FIM): 7 (standing at sink to brush hair, brush teeth, and wash hands. ) Oral Hygiene (QC): 6 Bathing (FIM): 6 (use of GB in shower for safety while standing. noted pt stood for whole shower. ) Bathing Location: L Arm, R Arm, L Upper Leg, R Upper Leg, L Lower Leg (including foot), R Lower Leg (including foot), Chest, Abdomen, Buttocks, Perineal Area Shower/Bathe Self (QC): 6 Upper Body (FIM): 7 (bra, trap puller shirt and button up shirt) Upper Body Dressing (QC): 6 Lower Body Dressing (FIM): 7 (underpants, pants, charlene socks and shoes ) Lower Body Dressing (QC): 6 On/Off Footwear (QC): 6 (charlene socks and shoes ) Toileting (FIM): 7 (3/3 toileting tasks ) Toileting Hygiene (QC): 6 Transfers (B, C, W/C) (FIM): 6 (use of RW ) Toilet/Commode Transfer (FIM): 6 (use of FRW ) Toilet Transfer (QC): 6 (use of FRW ) Shower Transfer(FIM): 6 (use of FRW ) pt demo ability to gather all clothing from closet and set up bathroom prior to shower. noted proper use of RW. pt had good safety awareness throughout ADLS. post shower pt cleaned up bathroom putting away dirty clothing including picking items up room floor MOD I with use of RW to maintain balance. Other Treatment post ADLs pt ambulate to TX gym MOD I using RW. once in gym pt given 2# wrist weights an perform 12 ROM rings to 145 degree shoulder flexion X2. pt reports her Left shoulder feels weaker compared to right but sttd no pain. pt then perfo rm UBE 10 minutes forward to incresae activity tolerance with MOD resistance. pt then ambulated back to room MOD I and sat in recliner chair., all needs met. call light within reach. noted pt cognition improved this date and was oriented X4. pt completed all ADLs/ FA MOD I. Education OT Patient Education: Energy conservation, Modified ADL techniques, Progress toward Goal/Update tx plan, Purpose of tx/functional activities, Safety issues, Transfer techniques Teaching Recipient: Patient Teaching Methods: Demonstration, Discussion Response to Teaching: Verbalize Understanding, Return Demonstration OT Short Term Goals Short Term Goals Eating(FIM): 6 Grooming(FIM): 5 Bathing(FIM): 5 Bathing Location: L Arm, R Arm, L Upper Leg, R Upper Leg, L Lower Leg (including foot), R Lower Leg (including foot), Chest, Abdomen, Buttocks, Perineal Area Upper Body Dressing(FIM): 5 Lower Body Dressing(FIM): 5 Toileting(FIM): 5 Transfers (B,C,W/C) (FIM): 4 (CGA) Toilet/Commode Transfer(FIM): 5 Shower Transfer(FIM): 5 1=Demonstrate adherence to instructed precautions during ADL tasks. 2=Patient will verbalize/demonstrate understanding of assistive devices/modifications for ADL. 3=Patient will improve strength/tolerance for activity to enable patient to perform ADL's. OT Sofa Inspector Goals Mcfp Goals Eating (FIM): 7 Eating (QC): 6 Groomin Oral Hygiene (QC): 6 Bathing(FIM): 6 Bathing Location: L Arm, R Arm, L Upper Leg, R Upper Leg, L Lower Leg (including foot), R Lower Leg (including foot), Chest, Abdomen, Buttocks, Perineal Area Shower/Bathe Self (QC): 6 Upper Body Dressing(FIM): 6 Upper Body Dressing (QC): 6 Lower Body Dressing(FIM): 6 Lower Body Dressing (QC): 6 On/Off Footwear (QC): 6 Toileting(FIM): 6 Toileting Hygiene (QC): 6 Transfers (B,C,W/C) (FIM): 6 Toilet/Commode Transfer(FIM): 6 Toilet/Commode Transfer (QC): 6 Shower Transfer(FIM): 6 Additional Goals: 1-Demonstrate ADL Tasks, 2-Verbalize Understanding, 3- ImproveStrength/Arab[place] 1=Demonstrate adherence to instructed precautions during ADL tasks. 2=Patient will verbalize/demonstrate understanding of assistive devices/modifications for ADL. 3=Patient will improve strength/tolerance for activity to enable patient to perform ADL's. OT Education/Plan Problem List/Assessment Assessment: Decreased UE Strength, Impaired I ADL's pt present with functional limitations affecting areas of ADLS and functional transfers with deficits in the above mention. pt would benefit from skilled OT services to increase independence with ADL/ functional transfers. Discharge Recommendations Plan/Recommendations: Continue POC Equpiment Recommendations-D/C: None Treatment Plan/Plan of Care Treatment,Training & Education: Yes Patient would benefit from OT for education, treatment and training to promote independence in ADL's, mobility, safety and/or upper extremity function for ADL's. Plan of Care: ADL Retraining, Caregiver Training, Concurrent Therapy, Functional Mobility, Group Exercise/Act as Ind, UE Funct Exercise/Act Treatment Duration: Feb 20, 2019 Frequency: At least 5 of 7 days/Wk (IRF) Estimated Hrs Per Day: 1 hour per day (60-90 minutes per day) Agreement: Yes Rehab Potential: Fair Time/GCodes Start Time: 08:00 Stop Time: 09:15 Billed Treatment Time ADL 45 minutes, 3 units FA 30 minutes , 2 units DOUGLAS EDWARDS OT Jan 23, 2019 08:29
--- NOTE | 2019-01-23 09:08 | PM&R Progress Note ---
Subjective HPI/CC On Admission Date Seen by Provider: Jan 23, 2019 Time Seen by Provider: 09:15 Chief complaint: Severe right upper extremity pain with torso pain s/p fall. 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 She was in a great deal of pain, was noted to have anion gap acidosis due to new significant dehydration and fasting with ketosis but she was provided supportive care and PT but due to the debilitating severe pain she was in need of inpatient rehab for a short stay to work through the pain maintained on Tylenol and Baclofen, and to be monitored closely due to increased fall risk due to the pain issues. 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 Subjective/Events-last exam Aricept is really helping her. Has no pain. Ready to go home, will discharge tomorrow on Aricept since she is modified independent, walked 12 steps, improved cognition and will have her daughter check in on her, we do have to provide a walker. Elevated liver enzymes will be helped with decreased APAP and holding statin Overall doing very well. Conferred with RN. Reviewed therapy notes. Dramatic improvement in her status since admitted Review of Systems Neurological: Weakness Objective Exam Vital Signs Vital Signs Date Time Temp Pulse Resp B/P (MAP) Pulse Ox O2 Delivery O2 Flow Rate FiO2 01/23/19 20:11 Room Air 01/23/19 17:37 98.3 67 18 121/69 (86) 95 Capillary Refill : General Appearance: No Apparent Distress, WD/WN, Chronically ill HEENT: PERRL/EOMI, Normal ENT Inspection, Pharynx Normal, Moist Mucous Membranes Neck: Full Range of Motion, Normal Inspection, Non Tender, Supple Respiratory: Chest Non Tender, Lungs Clear, Normal Breath Sounds, No Accessory Muscle Use, No Respiratory Distress Cardiovascular: Regular Rate, Rhythm, No Edema, No Gallop, No JVD, No Murmur Gastrointestinal: Normal Bowel Sounds, No Organomegaly, No Pulsatile Mass, Non Tender, Soft Back: Normal Inspection, No CVA Tenderness, No Vertebral Tenderness, Decreased Range of Motion, Muscle Spasm Extremity: Normal Capillary Refill, Normal Inspection, Normal Range of Motion (right arm limited ROM due to pain), Non Tender, No Calf Tenderness, No Pedal Edema Neurologic/Psychiatric: Alert, Oriented x3, No Motor/Sensory Deficits, Normal Mood/Affect, water softener servicer II-XII Norm as Tested, Disoriented Skin: Normal Color, Warm/Dry Lymphatic: No Adenopathy Results/Procedures Lab Patient resulted labs reviewed. FIM Transfers Therapy Code Descriptions/Definitions Functional [place] Measure: 0=Not Assessed/NA 4=Minimal Assistance 1=Total Assistance 5=Supervision or Setup 2=Maximal Assistance 6=Modified [place] 3=Moderate Assistance 7=Complete [place] Therapy Quality Codes: 6 Independent with activity with or without an assistive device 5 Patient requires set up or clean up by helper. Patient completes activity by themselves 4 Supervision or touching assist (CGA). [place] provide cues , steadying assist 3 The helper provides less than half the effort to complete the activity 2 The helper provides more than half the effort to complete the activity 1 Dependent. The helper does all the effort to complete an activity 7 Patient refused to complete or attempt activity 9 The patient did not perform the activity before the current illness or injury 88 Not attempted due to Medical conditions or safety concerns Transfers (B, C, W/C) (FIM): 6 (use of RW ) Scootin Rollin Roll Left to Right (QC): 3 Supine to/from Sit: 5 Sit to/from Stand: 5 Sit to Lying (QC): 5 Sit to Stand (QC): 5 Chair/Jmb-cy-Bdgho Xfer(QC): 3 Bed to/from Chair: 6 Car Transfer (QC): 3 Gait Training Does the Patient Walk?: Yes Gait (FIM): 5 Distance (FIM): 3=150 ft Distance: 150' Walk 10 feet (QC): 5 Walk 50 ft with 2 Turns(QC): 5 Walk 150 ft (QC): 5 Walking 10ft/uneven surface-QC: 3 Gait Level of Assist: 5 Gait Persons Needed: 1 Gait Assistive Device: FWW Wheelchair Training Does the Pt Use a Wheelchair?: No Wheelchair (FIM): 4 Wheelchair Distance: 7=033-17 ft Distance: 75' Wheelchair Level of Assist: 5 Wheel 50 ft with 2 turns (QC): 5 Type of Wheelchair: Manual Stair Training Stair Training: Handrails/: 2 handrails Stairs (FIM): 4 #of Steps: 12 1 Step (curb) (QC): 3 Stairs: Pattern: Reciprocal Level of Assist: 4 Mental Status/Objective Comprehension: 4 Expression: 4 Social Interaction: 5 Problem Solvin Memory: 3 ADL-Treatment Feedin Eating (QC): 6 Groomin (standing at sink to brush hair, brush teeth, and wash hands. ) Oral Hygiene (QC): 6 Bathin (use of GB in shower for safety while standing. noted pt stood for whole shower. ) Bathing Location: L Arm, R Arm, L Upper Leg, R Upper Leg, L Lower Leg (including foot), R Lower Leg (including foot), Chest, Abdomen, Buttocks, Perineal Area Shower/Bathe Self (QC): 6 Upper Extremity Dressin (bra, char puller shirt and button up shirt) Upper Body Dressing (QC): 6 Lower Extremity Dressin (underpants, pants, charlene socks and shoes ) Lower Body Dressing (QC): 6 On/Off Footwear (QC): 6 (charlene socks and shoes ) Toiletin (3/3 toileting tasks ) Toileting Hygiene (QC): 6 Toilet/Commode Transfer: 6 (use of FRW ) Toilet Transfer (QC): 6 (use of FRW ) Shower: 6 (use of FRW ) Assessment/Plan Assessment and Plan Assess & Plan/Chief Complaint Assessment: Fall with severe right arm and torso pain Debility CAD HTN HLP GERD Neuroendocrine tumor Dementia Elevated LFT's Plan: Pain control PT/OT Monitor closely Start treatment of dementia with Aricept Appreciate psych evaluation Hold statin and decrease APAP Dramatic improvement since admit DC (1) Debility (2) CAD (coronary artery disease) (3) Hyperlipemia (4) Hypothyroidism (5) GERD (gastroesophageal reflux disease) (6) Hypertension (7) Neuro-endocrine carcinoma (8) Diastolic CHF (9) Dementia (10) Liver enzyme elevation JESSICA SALAZAR DO Jan 23, 2019 09:08
--- NOTE | 2019-01-23 12:32 | Physical Therapy Daily Note ---
PT Daily Note-Current Subjective Pt sitting in recliner upon arrival. Pt agrees to PT. Pain Location: No Pain Reported Mental Status Patient Orientation: Person, Confused, Place Transfers Therapy Code Descriptions/Definitions Functional [place] Measure: 0=Not Assessed/NA 4=Minimal Assistance 1=Total Assistance 5=Supervision or Setup 2=Maximal Assistance 6=Modified [place] 3=Moderate Assistance 7=Complete [place] Therapy Quality Codes: 6 Independent with activity with or without an assistive device 5 Patient requires set up or clean up by helper. Patient completes activity by themselves 4 Supervision or touching assist (CGA). [place] provide cues , steadying assist 3 The helper provides less than half the effort to complete the activity 2 The helper provides more than half the effort to complete the activity 1 Dependent. The helper does all the effort to complete an activity 7 Patient refused to complete or attempt activity 9 The patient did not perform the activity before the current illness or injury 88 Not attempted due to Medical conditions or safety concerns Transfers (B, C, W/C) (FIM): 6 Scootin Rollin Roll Left to Right (QC): 7 Supine to/from Sit: 6 Sit to/from Stand: 6 Sit to Lying (QC): 6 Sit to Stand (QC): 6 Chair/Hrx-sx-Ewatp Xfer(QC): 6 Bed to/from Chair: 6 Car Transfer (QC): 6 Pt needs VC for hand placement during transfers fro safety. Weight Bearing Full Weight Bearing Full Weight Bearing Gait Training Does the Patient Walk?: Yes Gait (FIM): 6 Distance (FIM): 3=150 ft Distance: 150', 150' Walk 10 feet (QC): 6 Walk 50 ft with 2 Turns(QC): 6 Walk 150 ft (QC): 6 Walking 10ft/uneven surface-QC: 6 Gait Level of Assist: 6 Gait Persons Needed: 1 Gait Assistive Device: FWW Pt needs VC to stay w/in her FWW. Wheelchair Training Does the Pt Use a Wheelchair?: No Stair Training Stair Training: Handrails/: 2 handrails Stairs (FIM): 6 #of Steps: 12 1 Step (curb) (QC): 6 4 Steps (QC): 6 12 Steps (QC): 6 Stairs: Pattern: Reciprocal Level of Assist: 6 Balance Picking up an Object (QC): 6 Exercises NuStep Minutes: 17 NuStep Workload: 5 Treatments Pt completes FIM scoring items including: bed mobility, transfers including car transfer, ambulation including across varying surface, picking up object from floor and stairs. Pt also uses NuStep for 17m at WL 5 before returning to room to rest in recliner at end of tx. WAREHOUSE PROCESSOR assists pt with ordering lunch. Pt has all needs met, including call light in hand. Assessment Current Status: Good Progress Pt needs VC repeated for hand placement during transfers for safety. PT Short Term Goals Short Term Goals Time Frame: Jan 23, 2019 Transfers (B,C,W/C) (FIM): 4 (CGA) Gait (FIM): 4 (CGA) Gait Distance Comment: 150' Gait Level of Assist: 4 Gait Assistive Device: FWW Wheelchair Distance: 75' PT Fci Goals Fci Goals PT Fci Goals Time Frame: Feb 06, 2019 Transfers (B,C,W/C) (FIM): 5 Sit to Lying (QC): 4 Lying-Sitting on Side/Bed(QC): 4 Sit to Stand (QC): 4 Rollin Roll Left to Right (QC): 4 Chair/Wxw-yz-Jbdpo Xfer(QC): 4 Car Transfer (QC): 4 Gait (FIM): 5 Distance: 200' Walk 10 feet (QC): 4 Walk 10ft-Uneven Surface(QC): 4 Walk 50ft with 2 Turns (QC): 4 Walk 150 ft (QC): 4 Gait Level of Assist: 5 Stairs (FIM): 2 # of Steps: 4 1 Step (curb) (QC): 4 4 Steps (QC): 4 Stairs Level Of Assist: 4 PT Plan Problem List Problem List: Activity Tolerance, Safety, Gait, Transfer Treatment/Plan Treatment Plan: Continue Plan of Care Treatment Plan: Bed Mobility, Concurrent Therapy, Education, Functional Activity [place], Functional Strength, Group Therapy, Gait, Safety, Therapeutic Exercise, Transfers Treatment Duration: Feb 06, 2019 Frequency: At least 5 of 7 days/Wk (IRF) Estimated Hrs Per Day: 1.5 hours per day Patient and/or Family Agrees t: Yes Safety Risks/Education Patient Education: Gait Training, Transfer Techniques, Correct Positioning, Safety Issues Teaching Recipient: Patient Teaching Methods: Discussion Response to Teaching: Verbalize Understanding Time/GCodes Time In: 1100 Time Out: 1200 Total Billed Treatment Time: 60 Total Billed Treatment 1, GT (15m), EX (20m) & FA x2 (25m) G Codes Necessary: SILVIA Juan WAREHOUSE PROCESSOR Jan 23, 2019 12:32
--- NOTE | 2019-01-23 14:07 | Physical Therapy Daily Note ---
PT Daily Note-Current Subjective Pt laying Supine in Lift chair. Pt agrees to PT. Pt declines transfer to bed at end of tx due to comfort. Pain Location: No Pain Reported Mental Status Patient Orientation: Person, Confused, Place Transfers Therapy Code Descriptions/Definitions Functional [place] Measure: 0=Not Assessed/NA 4=Minimal Assistance 1=Total Assistance 5=Supervision or Setup 2=Maximal Assistance 6=Modified [place] 3=Moderate Assistance 7=Complete [place] Therapy Quality Codes: 6 Independent with activity with or without an assistive device 5 Patient requires set up or clean up by helper. Patient completes activity by themselves 4 Supervision or touching assist (CGA). [place] provide cues , steadying assist 3 The helper provides less than half the effort to complete the activity 2 The helper provides more than half the effort to complete the activity 1 Dependent. The helper does all the effort to complete an activity 7 Patient refused to complete or attempt activity 9 The patient did not perform the activity before the current illness or injury 88 Not attempted due to Medical conditions or safety concerns Weight Bearing Full Weight Bearing Full Weight Bearing Exercises Supine Ex: Ankle pumps, Quad Set, Glut sets, Scooting, Straight leg raise, Hip abd/add Supine Reps: 20 Treatments Pt completes Supine Ex reclined in Lift chair stating bed is uncomfortable. Pt declines needing to use restroom. Pt resting at end of tx with all needs met, call light in hand. Assessment Current Status: Good Progress Pt has made good progress and tolerated tx well. Pt still demonstrating signs of Dementia but believed to be PLOF. PT Short Term Goals Short Term Goals Time Frame: Jan 23, 2019 Transfers (B,C,W/C) (FIM): 4 (CGA) Gait (FIM): 4 (CGA) Gait Distance Comment: 150' Gait Level of Assist: 4 Gait Assistive Device: FWW Wheelchair Distance: 75' PT Fpc Goals [employer] Goals PT Fpc Goals Time Frame: Feb 06, 2019 Transfers (B,C,W/C) (FIM): 5 Sit to Lying (QC): 4 Lying-Sitting on Side/Bed(QC): 4 Sit to Stand (QC): 4 Rollin Roll Left to Right (QC): 4 Chair/Hfw-my-Lokqa Xfer(QC): 4 Car Transfer (QC): 4 Gait (FIM): 5 Distance: 200' Walk 10 feet (QC): 4 Walk 10ft-Uneven Surface(QC): 4 Walk 50ft with 2 Turns (QC): 4 Walk 150 ft (QC): 4 Gait Level of Assist: 5 Stairs (FIM): 2 # of Steps: 4 1 Step (curb) (QC): 4 4 Steps (QC): 4 Stairs Level Of Assist: 4 PT Plan Problem List Problem List: Activity Tolerance, Safety Treatment/Plan Treatment Plan: Continue Plan of Care Treatment Plan: Bed Mobility, Concurrent Therapy, Education, Functional Activity [place], Functional Strength, Group Therapy, Gait, Safety, Therapeutic Exercise, Transfers Treatment Duration: Feb 06, 2019 Frequency: At least 5 of 7 days/Wk (IRF) Estimated Hrs Per Day: 1.5 hours per day Patient and/or Family Agrees t: Yes Safety Risks/Education Patient Education: Safety Issues Teaching Recipient: Patient Teaching Methods: Discussion Response to Teaching: Verbalize Understanding Time/GCodes Time In: 1330 Time Out: 1400 Total Billed Treatment Time: 30 Total Billed Treatment 1, EX x2 (30m) G Codes Necessary: SILVIA Juan KNIFEMAN Jan 23, 2019 14:07
--- NOTE | 2019-01-23 15:00 | NUR ---
ELECTRONIC SCANNER OPERATOR met with patient to review team conference summary. As patient is performing all therapy activities with modified independence, team has recommended patient proceed with discharge home tomorrow, 628. At this time team does not recommend post hospital services; however, does recommend walker for safe ambulation. Patient states she has a walker left over from her spouse that she can utilize. Patient expresses no concerns regarding discharge plan and is eager to return home. As patient continues to have baseline cognitive deficits with memory, ELECTRONIC SCANNER OPERATOR contacted patient's daughter,Nydia to request regular check-ins with the patient. Nydia is able to accommodate this need. ELECTRONIC SCANNER OPERATOR reviewed IMM with patient and obtain signature. Patient has no further needs at this time please see discharge summary for further information.
--- NOTE | 2019-01-23 15:25 | Speech Therapy Daily Note ---
Speech Daily Progress Note Subjective Date Seen by Provider: Jan 23, 2019 Time Seen by Provider: 00:30 The patient was alert and participated well with therapy. Objective The patient completed problem solving tasks related to her safe return home with 90% accuracy given minimal cuing. Assessment Assessment Current Status: Good Progress Treatment Plan Continue Plan of Care Communication Comprehension: 7 Expression: 7 Social Cognition Social Interaction: 7 Problem Solvin Memory: 7 Speech Short Term Goals Short Term Goals Short Term Goals 1) The patient will complete memory tasks with 80% or greater with minimal verbal cues. Met 2) The patient will complete problem solving tasks with 80% or greater with minimal verbal cues. Met 3) The patient will demonstrate following multi-step directions with 80% or greater with minimal verbal cues. Met Speech Nursing Home Goals Nursing Home Goals The patient will improve safety and independence in order to function safely in her environment. Met Speech-Plan Patient/Family Goals Patient/Family Goals: The patient is scheduled to return home tomorrow. Treatment Plan Speech Therapy Treatment Plan: Discontinue ST, Goals Met The patient has made significant progress as a result of skilled therapy. Treatment Duration: Jan 24, 2019 Frequency: 5 times per week Estimated Hrs Per Day: .5 hour per day Rehab Potential: Fair Barriers to Learning: The patient had a fall and as a result had memory deficits which appear to be resolved. Pt/Family Agrees to Plan: Yes Safety Risks/Education Teaching Recipient: Patient Teaching Methods: Discussion Response to Teaching: Verbalize Understanding Education Topics Provided: Safety upon her return home. Time Speech Therapy Time In: 10:00 Speech Therapy Time Out: 10:30 Total Billed Time: 30 Billed Treatment Time 1, ELLI Amador Jan 23, 2019 15:25
[2019-01-23 17:37] VITALS: BP 121/69
--- NOTE | 2019-01-23 18:00 | NUR ---
ANXIOUS TO BE GOING HOME TOMORROW. AN UNEVENTFUL DAY.
[2019-01-23] MEDS: DONEPEZIL 5 MG (ARICEPT) TAB PO SCH (20:07)
[2019-01-23] MEDS: MELATONIN 3 MG TABLET PO PRN (20:07)
[2019-01-24 05:20] VITALS: BP 128/65
[2019-01-24] MEDS: LEVOTHYROXINE 75 MCG (LEVOTHROID) TABLET PO SCH (06:02)
[2019-01-24] MEDS: KCL 10 MEQ TAB (MICRO K) PO SCH (06:02)
[2019-01-24] MEDS ORDERED: DONE5TAB8 PO (08:02)
[2019-01-24] MEDS ORDERED: ATOR40TA70 PO (08:02)
--- NOTE | 2019-01-24 08:04 | Discharge Summary ---
Diagnosis/Chief Complaint Date of Admission Jan 16, 2019 at 13:50 Date of Discharge Discharge Date: Jan 24, 2019 Discharge Diagnosis Assessment: Fall with severe right arm and torso pain Debility CAD HTN HLP GERD Neuroendocrine tumor Dementia Elevated LFT's Plan: Pain control PT/OT Monitor closely Start treatment of dementia with Aricept Appreciate psych evaluation Hold statin and decrease APAP Dramatic improvement since admit DC Discharge Summary Discharge Physical Examination Allergies: Coded Allergies: codeine (Verified Allergy, Unknown, 01/18/19) Vitals & I&Os Vital Signs Date Time Temp Pulse Resp B/P (MAP) Pulse Ox O2 Delivery O2 Flow Rate FiO2 01/24/19 11:45 55 16 128/65 97 Room Air 01/24/19 05:20 97.2 General Appearance: Alert, Oriented X3, Cooperative HEENT: Atraumatic, PERRLA Respiratory: Clear to Auscultation, Normal Air Movement Neuro: Normal Gait, Normal Speech, Strength at 5/5 X4 Ext Psych/Mental Status: Mental Status NL, Mood NL Hospital Course Was the Problem List Reviewed?: Yes Hospital course: Pt had an uneventful hospital course for 9 days after she wa transferred from [facility] due to debilitating right arm and back pain after a fall without any fractures identified.Cognition was assessed to be 18/30 so Aricept was given and she seemed to respond to that very quickly and very well. Bowels returned back to normal after she was given Laxatives. Pain was controlled with Tylenol and Baclofen and at the time of discharge she did not even require any of those medications. Overall labs remained stable, no decompensation occurred and she will have close follow-up with her primary care provider in one week. Liver enzyme elevation was noted so I did hold the Lipitor and minimized the Tylenol given and she will have close follow up with her PCP after liver enzymes are checked. Labs (last 24 hrs) Laboratory Tests 01/17/19 03:55: Sodium Level 140, Potassium Level 3.1L, Chloride Level 106, Carbon Dioxide Level 25, Anion Gap 9, Blood Urea Nitrogen 8, Creatinine 0.59L, Estimat Glomerular Filtration Rate > 60, BUN/Creatinine Ratio 14, Glucose Level 92, Calcium Level 8.6, Corrected Calcium 9.4, Total Bilirubin 0.3, Aspartate Amino Transf (AST/SGOT) 51H, Alanine Aminotransferase (ALT/SGPT) 51, Alkaline Phosphatase 135, Total Protein 6.0L, Albumin 3.0L 01/17/19 04:00: White Blood Count 4.8, Red Blood Count 3.70L, Hemoglobin 10.2L, Hematocrit 32L, Mean Corpuscular Volume 85, Mean Corpuscular Hemoglobin 28, Mean Corpuscular Hemoglobin Concent 32, Red Cell Distribution Width 14.4, Platelet Count 283, Mean Platelet Volume 9.4, Neutrophils (%) (Auto) 54, Lymphocytes (%) (Auto) 35, Monocytes (%) (Auto) 10, Eosinophils (%) (Auto) 1, Basophils (%) (Auto) 0, Neutrophils # (Auto) 2.6, Lymphocytes # (Auto) 1.6, Monocytes # (Auto) 0.5, Eosinophils # (Auto) 0.1, Basophils # (Auto) 0.0 01/22/19 06:10: Sodium Level 142, Potassium Level 4.0, Chloride Level 108H, Carbon Dioxide Level 26, Anion Gap 8, Blood Urea Nitrogen 12, Creatinine 0.66, Estimat Glomerular Filtration Rate > 60, BUN/Creatinine Ratio 18, Glucose Level 85, Calcium Level 9.0, Corrected Calcium 9.4, Total Bilirubin 0.2, Aspartate Amino Transf (AST/SGOT) 52H, Alanine Aminotransferase (ALT/SGPT) 67H, Alkaline Phosphatase 173H, Total Protein 6.6, Albumin 3.5, White Blood Count 4.2L, Red Blood Count 4.12L, Hemoglobin 11.6, Hematocrit 36, Mean Corpuscular Volume 87, Mean Corpuscular Hemoglobin 28, Mean Corpuscular Hemoglobin Concent 33, Red Cell Distribution Width 14.2, Platelet Count 313, Mean Platelet Volume 9.2, Neutroph ils (%) (Auto) 46, Lymphocytes (%) (Auto) 45H, Monocytes (%) (Auto) 8, Eosinophils (%) (Auto) 1, Basophils (%) (Auto) 1, Neutrophils # (Auto) 1.9, Lymphocytes # (Auto) 1.9, Monocytes # (Auto) 0.3, Eosinophils # (Auto) 0.0, Basophils # (Auto) 0.0 Pending Labs Laboratory Tests 01/17/19 03:55: Sodium Level 140, Potassium Level 3.1, Chloride Level 106, Carbon Dioxide Level 25, Anion Gap 9, Blood Urea Nitrogen 8, Creatinine 0.59, Estimat Glomerular Filtration Rate > 60, BUN/Creatinine Ratio 14, Glucose Level 92, Calcium Level 8.6, Corrected Calcium 9.4, Total Bilirubin 0.3, Aspartate Amino Transf (AST/SGOT) 51, Alanine Aminotransferase (ALT/SGPT) 51, Alkaline Phosphatase 135, Total Protein 6.0, Albumin 3.0 01/17/19 04:00: White Blood Count 4.8, Red Blood Count 3.70, Hemoglobin 10.2, Hematocrit 32, Mean Corpuscular Volume 85, Mean Corpuscular Hemoglobin 28, Mean Corpuscular Hemoglobin Concent 32, Red Cell Distribution Width 14.4, Platelet Count 283, Mean Platelet Volume 9.4, Neutrophils (%) (Auto) 54, Lymphocytes (%) (Auto) 35, Monocytes (%) (Auto) 10, Eosinophils (%) (Auto) 1, Basophils (%) (Auto) 0, Neutrophils # (Auto) 2.6, Lymphocytes # (Auto) 1.6, Monocytes # (Auto) 0.5, Eosinophils # (Auto) 0.1, Basophils # (Auto) 0.0 01/22/19 06:10: Sodium Level 142, Potassium Level 4.0, Chloride Level 108, Carbon Dioxide Level 26, Anion Gap 8, Blood Urea Nitrogen 12, Creatinine 0.66, Estimat Glomerular Filtration Rate > 60, BUN/Creatinine Ratio 18, Glucose Level 85, Calcium Level 9.0, Corrected Calcium 9.4, Total Bilirubin 0.2, Aspartate Amino Transf (AST/SGOT) 52, Alanine Aminotransferase (ALT/SGPT) 67, Alkaline Phosphatase 173, Total Protein 6.6, Albumin 3.5, White Blood Count 4.2, Red Blood Count 4.12, Hemoglobin 11.6, Hematocrit 36, Mean Corpuscular Volume 87, Mean Corpuscular Hemoglobin 28, Mean Corpuscular Hemoglobin Concent 33, Red Cell Distribution Width 14.2, Platelet Count 313, Mean Platelet Volume 9.2, Neutrophils (%) (Auto) 46, Lymphocytes (%) (Auto) 45, Monocytes (%) (Auto) 8, Eosinophils (%) (Auto) 1, Basophils (%) (Auto) 1, Neutrophils # (Auto) 1.9, Lymphocytes # (Auto) 1.9, Monocytes # (Auto) 0.3, Eosinophils # (Auto) 0.0, Basophils # (Auto) 0.0 Discharge Home Medications: Active Scripts Active Aricept (Donepezil HCl) 5 Mg Tablet 5 Mg PO HS Atorvastatin Calcium 40 Mg Tablet 40 Mg PO HS Hold until sees PCP to check liver enzymes Reported Nitroglycerin 0.4 Mg Tab.subl 0.4 Mg SL UD PRN Synthroid (Levothyroxine Sodium) 75 Mcg Tablet 75 Mcg PO DAILY Aspirin EC (Aspirin) 81 Mg Tablet.dr 81 Mg PO DAILY Instructions to patient/family Please see electronic discharge instructions given to patient. Diagnosis/Problems Diagnosis/Problems (1) Debility (2) CAD (coronary artery disease) (3) Hyperlipemia (4) Hypothyroidism (5) GERD (gastroesophageal reflux disease) (6) Hypertension (7) Neuro-endocrine carcinoma (8) Diastolic CHF (9) Dementia (10) Liver enzyme elevation Clinical Quality Measures DVT/VTE Risk/Contraindication: Risk Factor Score Per Nursin RFS Level Per Nursing on Admit: 4+=Very High JESSICA SALAZAR DO Jan 24, 2019 08:04
[2019-01-24] MEDS: ASPIRIN E.C. 81 MG (ECOTRIN) TAB PO SCH (08:17)
[2019-01-24] MEDS: LACTULOSE SYRUP 10GM/15ML (ENULOSE) 30ML UDC PO SCH (08:17)
[2019-01-24] MEDS: SENNA W/DOCUSATE (SENOKOT S) TABLET PO SCH (08:18)
--- NOTE | 2019-01-24 09:47 | Therapy Team Discharge Summary ---
Therapy Discharge Summary Discharge Recommendations Date of Discharge Therapy D/C Recommendations: Home w/ Family Support, Residential (TCU/NH) Occupational Therapy Decreased UE Strength, Impaired I ADL's Speech-Language Pathology The patient was admitted to the ARU due to a fall with injury. She was admitted for health monitoring and strengthening. The patient exhibited decreased memory and problem solving abilities initially as resulted by the SLUMS. She progressed to meet all of her goals. She discharged to home this date as well as from skilled ST services. PT Long-Term Goals Milking System Installer Goals PT Long-Term Goals Time Frame: Feb 06, 2019 Transfers (B,C,W/C) (FIM): 5 Roll Left to Right (QC): 4 Sit to Lying (QC): 4 Lying-Sitting on Side/Bed(QC): 4 Sit to Stand (QC): 4 Chair/Hhq-ns-Djpsq Xfer(QC): 4 Car Transfer (QC): 4 Gait (FIM): 5 Distance: 200' Walk 10 feet (QC): 4 Walk 10ft-Uneven Surface(QC): 4 Walk 50ft with 2 Turns (QC): 4 Walk 150 ft (QC): 4 Gait Level of Assist: 5 Stairs (FIM): 2 # of Steps: 4 1 Step (curb) (QC): 4 4 Steps (QC): 4 Stairs Level Of Assist: 4 OT Long-Term Goals Milking System Installer Goals Eating (FIM): 7 Eating (QC): 6 Oral Hygiene (QC): 6 Grooming(FIM): 6 Bathing(FIM): 6 Bathing Location: L Arm, R Arm, L Upper Leg, R Upper Leg, L Lower Leg (including foot), R Lower Leg (including foot), Chest, Abdomen, Buttocks, Perineal Area Shower/Bathe Self (QC): 6 Upper Body Dressing(FIM): 6 Upper Body Dressing (QC): 6 Lower Body Dressing(FIM): 6 Lower Body Dressing (QC): 6 On/Off Footwear (QC): 6 Toileting(FIM): 6 Toileting Hygiene (QC): 6 Transfers (B,C,W/C) (FIM): 6 Toilet/Commode Transfer(FIM): 6 Toilet/Commode Transfer (QC): 6 Shower Transfer(FIM): 6 Additional Goals: 1-Demonstrate ADL Tasks, 2-Verbalize Understanding, 3- ImproveStrength/Arabella 1=Demonstrate adherence to instructed precautions during ADL tasks. 2=Patient will verbalize/demonstrate understanding of assistive devices/modific ations for ADL. 3=Patient will improve strength/tolerance for activity to enable patient to perform ADL's. Speech Long-Term Goals Long-Term Goals The patient will improve safety and independence in order to function safely in her environment. Met ELLI GARCIA Jan 24, 2019 09:47
--- NOTE | 2019-01-24 11:30 | NUR ---
EMA LOBO demonstrates understanding of discharge instructions and accurately returns instructions upon questioning. Copy of Post-Discharge Instructions given to PATIENT. EMA LOBO is able to manage continuing needs after discharge WITH SUPPORT FROM DAUGHTER. Patient's belongings returned to PATIENT. Patient discharged from [facility]- on 01/24/19 at 1130. EMA LOBO left floor via WHEELCHAIR, accompanied by RN AND DAUGHTER.
--- NOTE | 2019-01-24 11:38 | Therapy Team Discharge Summary ---
Therapy Discharge Summary Discharge Recommendations Date of Discharge Therapy D/C Recommendations: Home w/ Family Support, Nursing Home (TCU/NH) Physical Therapy Patient came to rehab with weakness and high anion gap metabolic acisosis. Upon evaluation patient min assist for bed mobility, supine <-> sit min assist, sit <-> stand min assist, transfers min assist, car transfer min assist, ambulated 100' with a single point cane with min assist (including 50' with at least 2 turns of 90 degrees and 10' over an uneven surface), and went up and down 1 step using a single point cane with min assist. Patient has been performing bed mobility and transfer training, balance and endurance training, functional strengthening, stair training, gait training, and education. 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 Now, patient performs bed mobility and transfers with mod I, car transfer mod I, ambulates 150' with a rolling walker with mod I (including 50' with at least 2 turns of 90 degrees and 10' over an uneven surface), and can go up and down 12 steps using 2 handrails with mod I. Patient is discharging from this facility today and will be discharged from PT at this time. Occupational Therapy Decreased UE Strength, Impaired I ADL's PT House Wrecker Goals House Wrecker Goals PT House Wrecker Goals Time Frame: Feb 06, 2019 Transfers (B,C,W/C) (FIM): 5 Roll Left to Right (QC): 4 Sit to Lying (QC): 4 Lying-Sitting on Side/Bed(QC): 4 Sit to Stand (QC): 4 Chair/Xhp-mg-Lpjta Xfer(QC): 4 Car Transfer (QC): 4 Gait (FIM): 5 Distance: 200' Walk 10 feet (QC): 4 Walk 10ft-Uneven Surface(QC): 4 Walk 50ft with 2 Turns (QC): 4 Walk 150 ft (QC): 4 Gait Level of Assist: 5 Stairs (FIM): 2 # of Steps: 4 1 Step (curb) (QC): 4 4 Steps (QC): 4 Stairs Level Of Assist: 4 OT House Wrecker Goals Chcf Goals Eating (FIM): 7 Eating (QC): 6 Oral Hygiene (QC): 6 Grooming(FIM): 6 Bathing(FIM): 6 Bathing Location: L Arm, R Arm, L Upper Leg, R Upper Leg, L Lower Leg (including foot), R Lower Leg (including foot), Chest, Abdomen, Buttocks, Perineal Area Shower/Bathe Self (QC): 6 Upper Body Dressing(FIM): 6 Upper Body Dressing (QC): 6 Lower Body Dressing(FIM): 6 Lower Body Dressing (QC): 6 On/Off Footwear (QC): 6 Toileting(FIM): 6 Toileting Hygiene (QC): 6 Transfers (B,C,W/C) (FIM): 6 Toilet/Commode Transfer(FIM): 6 Toilet/Commode Transfer (QC): 6 Shower Transfer(FIM): 6 Additional Goals: 1-Demonstrate ADL Tasks, 2-Verbalize Understanding, 3- ImproveStrength/Arabella 1=Demonstrate adherence to instructed precautions during ADL tasks. 2=Patient will verbalize/demonstrate understanding of assistive devices/modifications for ADL. 3=Patient will improve strength/tolerance for activity to enable patient to perform ADL's. Speech Chcf Goals Chcf Goals The patient will improve safety and independence in order to function safely in her environment. Met SKIP BABIN PT Jan 24, 2019 11:38
[2019-01-24 11:45] VITALS: BP 128/65
--- NOTE | 2019-01-24 14:47 | Therapy Team Discharge Summary ---
Therapy Discharge Summary Discharge Recommendations Date of Discharge Jan 24, 2019 at 11:30 Therapy D/C Recommendations: Home w/ Family Support, [facility]dc (TCU/NH) Occupational Therapy pt has made great progress while in inpt rehab. OT has focused on increasing independence with ADLS, functional transfers, increase UE strength, use of AE/ DME, increasing activity tolerance/ endurance, overall balance, increasing st anding tolerance, IADLs, and overall safety with functional tasks in sitting and standing. currently pt is able to complete all ADLs/ functional transfers independently/ MOD I with use of AE. pt biggest barrier is cognition. therefore, would recommend intermitted SPV while home. pt has met all OT goals and has made great progress while in inpt rehabilitation. d/c OT at this time. No Skilled OT Needs ID'd PT Senior Living Goals Environmental Auditor Goals PT Environmental Auditor Goals Time Frame: Feb 06, 2019 Transfers (B,C,W/C) (FIM): 5 Roll Left to Right (QC): 4 Sit to Lying (QC): 4 Lying-Sitting on Side/Bed(QC): 4 Sit to Stand (QC): 4 Chair/Yfz-st-Gjcsy Xfer(QC): 4 Car Transfer (QC): 4 Gait (FIM): 5 Distance: 200' Walk 10 feet (QC): 4 Walk 10ft-Uneven Surface(QC): 4 Walk 50ft with 2 Turns (QC): 4 Walk 150 ft (QC): 4 Gait Level of Assist: 5 Stairs (FIM): 2 # of Steps: 4 1 Step (curb) (QC): 4 4 Steps (QC): 4 Stairs Level Of Assist: 4 OT Senior Living Goals Environmental Auditor Goals Time Frame: Jan 24, 2019 Eating (FIM): 7 (MET) Eating (QC): 6 (MET) Oral Hygiene (QC): 6 (MET) Grooming(FIM): 6 (MET) Bathing(FIM): 6 (MET) Bathing Location: L Arm, R Arm, L Upper Leg, R Upper Leg, L Lower Leg (including foot), R Lower Leg (including foot), Chest, Abdomen, Buttocks, Perineal Area Shower/Bathe Self (QC): 6 (MET) Upper Body Dressing(FIM): 6 (MET) Upper Body Dressing (QC): 6 (MET) Lower Body Dressing(FIM): 6 (MET) Lower Body Dressing (QC): 6 (MET) On/Off Footwear (QC): 6 (MET) Toileting(FIM): 6 (MET) Toileting Hygiene (QC): 6 (MET) Transfers (B,C,W/C) (FIM): 6 (MET) Toilet/Commode Transfer(FIM): 6 (MET) Toilet/Commode Transfer (QC): 6 (MET) Shower Transfer(FIM): 6 (MET) Additional Goals: 1-Demonstrate ADL Tasks, 2-Verbalize Understanding, 3- ImproveStrength/Arabella 1=Demonstrate adherence to instructed precautions during ADL tasks. 2=Patient will verbalize/demonstrate understanding of assistive devices/michelle fications for ADL. 3=Patient will improve strength/tolerance for activity to enable patient to perform ADL's. Speech Environmental Auditor Goals Environmental Auditor Goals The patient will improve safety and independence in order to function safely in her environment. Met DOUGLAS EDWARDS OT Jan 24, 2019 14:47
== END 2019-01-24 11:30 | disposition home or self-care (01) | DRG 556 ==
PROVIDERS: ADMIT Internal Medicine; ATTEND Internal Medicine
DX: M79.621 Pain in right upper arm (principal); M62.830 Muscle spasm of back; F03.90 Unspecified dementia, unspecified severity, without behavioral disturbance, psychotic disturbance, mood disturbance, and anxiety; I11.0 Hypertensive heart disease with heart failure; I50.30 Unspecified diastolic (congestive) heart failure; C7A.1 Malignant poorly differentiated neuroendocrine tumors; C77.9 Secondary and unspecified malignant neoplasm of lymph node, unspecified; I25.10 Atherosclerotic heart disease of native coronary artery without angina pectoris; Z66 Do not resuscitate; E03.9 Hypothyroidism, unspecified; K21.9 Gastro-esophageal reflux disease without esophagitis; E78.5 Hyperlipidemia, unspecified; R74.8 Abnormal levels of other serum enzymes; W19.XXXD Unspecified fall, subsequent encounter
CPT/HCPCS: 36415; 80053; 85025